=== PATIENT | female | born 1980 | race Caucasian/White ===

== ENCOUNTER 2024-07-05 12:13 | Outpatient (AMB) | payer BC, SELFPAY ==
--- NOTE | 2024-07-05 12:15 | MHC.PC.OV ---
Vital Signs 07/05/24 12:25 Height 5 ft 3 in Weight 140 lb 2 oz BMI 24.8 BP 101/68 Blood Pressure Location Lt brachial Position Sitting Respiration 12 Pulse 96 Pulse Source Pulse Oximeter Temp 97.6 F Temp Source Oral Pulse Oximetry (%) 99 Oxygen Delivery Method Room Air Intake Visit Reasons: [place] // Requesting physical Intake Note: New patient to establish care. Pattern Painter Required: No Allergies clarithromycin [From Biaxin] Allergy (Severe, Verified 07/05/24 12:31) Swelling morphine Allergy (Severe, Verified 07/05/24 12:31) Swelling Penicillins Allergy (Severe, Verified 07/05/24 12:31) Swelling sulfamethoxazole [From Bactrim] Allergy (Severe, Verified 07/05/24 12:31) Swelling trimethoprim [From Bactrim] Allergy (Severe, Verified 07/05/24 12:31) Swelling Medication List - Last Reconciled 07/05/24 by Ai Bailey, CUTTER APPRENTICE HAND- cyclobenzaprine 10 mg PO BEDTIME estradiol 1 mg PO DAILY estradiol (Estring) 1 vag ring vaginal [id number] sertraline (Zoloft) 50 mg PO DAILY Tobacco use date assessed: 07/05/24 Dental Screening Dental Screen Date: 07/05/24 Did you have a dental visit in the last 12 months?: Yes Did you have a dental problem in the last 6 months where you did not have access to dental care?: No Was dental information given to patient?: Patient has dentist HPI HPI Comments History of Present Illness Details 44 y/o F with L ovarian cyst, Vit D def, EUN, family hx of breast ca (mom age 21) s/p GEOVANNI with 1 ovary d/t endometriosis, s/p lumpectomy x 2 , Family hx: HLD, family hx of breast ca, Dad of prostate and throat ca Social: , 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 [place] History of Present Illness Previous PCP: [facility] in [place]. No medical records other than labs and MRI avail to me today. - The patient is a 44-year-old female presenting to establish care and address several ongoing health concerns. - The patient began taking Zoloft for anxiety three months ago due to life stressors. Reports stable improvement. - Approached a weight loss clinic due to obesity, successfully losing 52 pounds using Zepbound. Continued cholesterol monitoring due to family history. - Hyperlipidemia monitoring with recent tests indicating total cholesterol at 222 mg/dL, LDL at 131 mg/dL, and HDL at 80 mg/dL. 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 - Reports vitamin D deficiency, begun supplementation with 2000 international units daily. - Exhibits low alk phos likely associated with weight loss medication, impacting mineral absorption. - Suspected restless leg syndrome following increased physical activity. No previous diagnosis. - Underwent hysterectomy in July 2022 for severe endometriosis. Retained one on L ovary; went to ED for low back pain, found to have a cyst on the L ovary, she is going for US of this tomorrow, managed by AUTO MECHANIC APPRENTICE. - Has EpiPen for food allergies Physical Exam General: Well developed, well nourished, in no acute distress. Appears stated age. Head: Normocephalic, atraumatic. Eyes: Pupils are equal, round and reactive to light and accommodation. Conjunctivae are clear. Lungs: Clear to auscultation bilaterally. No rales, rhonchi or wheeze noted. Good air flow in all calvin. Heart: Regular rate and rhythm. No murmurs, click, rubs or gallops are noted. Musculoskeletal: Joints are nontender, without swelling, redness, or effusions. Pulses: Peripheral pulses are equal and palpable bilaterally. Extremities: No clubbing, cyanosis nor edema is noted. Psych: Mood and affect appropriate. Results - Labs: - Cholesterol (total): 222 mg/dL (June 29) - LDL: 131 mg/dL - HDL: 80 mg/dL - Vitamin D: confirmed deficiency - B12: elevated due to recent injection - Alkaline phosphatase: low - Zinc and thyroid levels need evaluation - Imaging/Tests: Pending ultrasound for pelvic evaluation pending. Discussion Notes I discussed with the patient the beneficial impact of her current lifestyle changes, including weight loss and physical activity, on her cholesterol levels and cardiovascular health risk, affirming her reduced cardiovascular risk due to elevated HDL levels. We explored her current supplement regimen for vitamin D deficiency and potential linkage of her prescribed weight-loss management medication with her low alkaline phosphatase levels. I emphasized prioritizing zinc level assessment for further clarity. Regarding anxiety, I affirmed the positive findings with Zoloft and considered the need for its continuation alongside her general mental health management without immediate cessation. Our dialogue included an examination of her family?s cancer history, the importance of mammogram follow-ups, and continued vigilant surveillance for hereditary conditions. Follow-up plans involve regular cholesterol re-checks and associated balancing measures within her broader health routine. Resource channels for communications were solidified through our patient portal activation dialogue, enhancing informational access. Consensual plan adjustments and future test completion were conveyed, aligning with our comprehensive care management strategy. Assessment and Plan 1. Anxiety disorder Continuation of sertraline due to improvement observed. Advised continued exercise and monitoring stress levels for potential dosage adjustments. 2. Obesity Highlighted progress with weight loss. Recommended sustaining physical activity and dietary modifications, with follow-up at the weight management clinic. 3. Hyperlipidemia Evaluated lipid profile, indicating low cardiovascular risk. Advised periodic monitoring with lifestyle optimization through exercise and diet. 4. Vitamin D deficiency Continued with daily 2000 IU vitamin D supplementation, with future labs planned for assessment. 5. Low alk phos Ordered zinc level for assessing association with weight loss medication. Recommended potential multivitamin inclusion. 6. Restless leg syndrome (suspected) Suspected restless leg syndrome will be evaluated via ferritin levels and monitored against activity. 7. Hysterectomy and endometriosis Further monitoring via pelvic ultrasound for unresolved pain; reinforced gynecological follow-ups. 8. Allergies Maintained existing management, including having an EpiPen accessible as required. Patient Instructions - Keep taking Zoloft every day to help with anxiety. - Continue staying active and keep up with exercise. - Follow a heart-healthy diet and get regular cholesterol checks. - Take vitamin D supplements daily. - Watch for symptoms of restless legs and increase fluids. - Scheduled pelvic ultrasound for pain, ensure follow-up with LANDSCAPE CREW LEADER. - Keep EpiPen ready for allergic emergencies, and be aware of your medication allergies. - Follow the instructions on using the patient portal for communication. RTO September CPE, sooner PRN Consent Patient was informed and verbally consented to the use of an ambient scribe for clinic note documentation during this visit. Total time spent caring for the patient today was 47 minutes. This includes time spent before the visit reviewing the chart, time spent during the visit, and time spent after the visit on documentation, reviewing laboratory results, diagnostic imaging, medications, performing a medically necessary evaluation, counseling on diagnoses, care coordination, ordering appropriate tests, ordering appropriate medications, review of tests performed by other providers, reporting test results with the patient, communication with other healthcare providers. [facility] Medical History (Updated 07/06/24 @ 08:09 by Ai Bailey [facility]) Asthma Surgical History (Updated 07/05/24 @ 13:06 by Samia Cordero MA) H/O breast reconstruction (~2021) H/O knee surgery H/O oral surgery H/O: hysterectomy (~2022) History of lumpectomy of left breast Previous section Family History (Updated 07/05/24 @ 13:09 by Samia Cordero MA) Mother Asthma High cholesterol Breast cancer Maternal Grandmother High cholesterol Paternal Grandmother HTN (hypertension) Diabetes Father Throat cancer Prostate cancer Maternal Grandfather Stomach cancer Thyroid cancer Social History (Updated 07/05/24 @ 12:24 by Smaia Cordero MA) Household Members: Spouse and Children Both parents involved: No Caregiver staying overnight: No Housing: House Are you a primary managed care manager to a significant other at home: Yes Do you presently have visiting nurse or other home services: No 75 years or older and lives alone: No Alcohol intake: current Alcohol intake frequency: a few times a month Patient Tobacco Use Status: Never used Tobacco e-Cigarette/Vaping Use: Never Used Second Hand Smoke Exposure: No service: No Current occupational status: employed 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 1. Little interest or pleasure in doing things: not at all 2. Feeling down, depressed, or hopeless: not at all 3. Trouble falling or staying asleep, or sleeping too much: not at all 4. Feeling tired or having little energy: not at all 5. Poor appetite or overeating: not at all 6. Feeling bad about yourself - or that you are a failure or have let yourself or your family down: not at all 7. Trouble concentrating on things, such as reading the newspaper or watching television: not at all 8. Moving or speaking so slowly that other people could have noticed. Or the opposite - being so fidgety or restless that you have been moving around a lot more than usual: not at all 9. Thoughts that you would be better off or of hurting yourself in some way: not at all Total score: 0 Depression Screening Interpretation: Negative Depression Screening Done: Yes 79537 - PHQ-9 Billing: Yes Source: Developed by Drs. Rico Espinoza, Desirae Krause, Eric Hall and colleagues, with an educational cherelle from [employer]. Thrive Questionnaire Date Thrive assessed: 07/05/24 I am a: Patient What is your living situation today?: I have a steady place to live Within the past 12 months, did the food you bought not last and you didn't have the money to get more?: Never true Within the past 12 months, did you worry whether your food would run out before you got money to buy more?: Never true Do you have trouble paying for medicines?: No Do you have trouble getting transportation to medical appointments?: No Do you have trouble paying your heating and electricity bill?: No Do you have trouble taking care of your child, family member or friend?: No Do you have trouble with day-to-day activities such as bathing, preparing meals, shopping, managing finances, etc.?: No Are you currently unemployed and looking for a job?: No Are you interested in more education?: No Please select the resources that you would like help with: None Currently or been in a relationship where the following occur: No concerns reported THRIVE Score: 0 AUDIT C Alcohol Use Questionnaire (AUDIT-C) 1. How often do you have a drink containing alcohol?: Monthly or less 2. How many drinks containing alcohol do you have on a typical day when you are drinking?: 1 or 2 3. How often do you have six or more drinks on one occasion?: Never Total Score: 1 Score Reviewed/Action Taken: Yes EUN-7 AMB Questionnaire EUN-7 Date EUN - 7 assessed: 07/05/24 Feeling nervous, anxious, or on edge: 1 = Several days Not being able to stop or control worryin = Several days Worrying too much about different things: 0 = Not at all Trouble relaxin = Several days Being so restless that it is hard to sit still: 0 = Not at all Becoming easily annoyed or irritable: 0 = Not at all Feeling afraid as if something awful might happen: 0 = Not at all Total EUN-7 score (0-4 normal; 5-9 mild; 10-14 moderate; 15-21 severe): 3 Source: Developed by Drs. Rico Espinoza, Desirae Krause, Eric Hall and colleagues, with an educational cherelle from [employer]. EUN-7 Assessment Billing EUN-7 Assessment Tool: EUN-7 Assessment 62143 Physical exam (Primary Care) Vital Signs: Last Vital Signs Temp 97.6 F 07/05/24 12:25 Pulse 96 07/05/24 12:25 Resp 12 07/05/24 12:25 BP 101/68 07/05/24 12:25 Pulse Ox 99 07/05/24 12:25 Oxygen Delivery Method Room Air 07/05/24 12:25 BMI result Body Mass Index 24.8 Tobacco/Smoking Status: Tobacco use Status Tobacco use date assessed 07/05/24 07/05/24 12:25 Patient Tobacco Use Status Never used Tobacco 07/05/24 12:25 e-Cigarette/Vaping Use Never Used 07/05/24 12:25 PHQ-9: PHQ-9 Score PHQ-9: Total score 0 07/05/24 15:21 Depression Screening Interpretation: Negative Thrive Assessment: Date of Thrive Assessment Date Thrive assessed 07/05/24 07/05/24 12:17 Currently or been in a relationship where the following occur: No concerns reported Coding Level of Care Code New Pt Level 4 (36230) Complex EM visit Add On G2211 Diagnoses Encounter to establish care Z76.89 Low serum alkaline phosphatase R74.8 Family history of hyperlipidemia Z83.438 EUN (generalized anxiety disorder) F41.1 Family history of breast cancer Z80.3 At high risk for breast cancer Z91.89 Vitamin D deficiency E55.9 Left ovarian cyst N83.202 Gluteal tendinitis of both buttocks M76.01; M76.02 Laterality: bilateral Additional Codes EUN-7 Assessment Billing - EUN-7 Assessment Tool: EUN-7 Assessment 66478 ([id number]) PHQ-9 - 54040 - PHQ-9 Billing: Yes ([id number]) Assessment & Plan Assessment & Plan (1) Encounter to establish care: Code(s): Z76.89 - Persons encountering health services in other specified circumstances (2) Low serum alkaline phosphatase: Code(s): R74.8 - Abnormal levels of other serum enzymes Category: Medical (3) Family history of hyperlipidemia: Code(s): Z83.438 - Family history of other disorder of lipoprotein metabolism and other lipidemia Category: Medical (4) EUN (generalized anxiety disorder): Code(s): F41.1 - Generalized anxiety disorder Category: Medical (5) Family history of breast cancer: Comment: Mom Code(s): Z80.3 - Family history of malignant neoplasm of breast Category: Medical (6) At high risk for breast cancer: Code(s): Z91.89 - Other specified personal risk factors, not elsewhere classified Category: Medical (7) Vitamin D deficiency: Code(s): E55.9 - Vitamin D deficiency, unspecified Category: Medical (8) Left ovarian cyst: Code(s): N83.202 - Unspecified ovarian cyst, left side Category: Medical (9) Gluteal tendonitis: Code(s): M76.00 - Gluteal tendinitis, unspecified hip Category: Medical Qualifiers: Laterality: bilateral Qualified Code(s): M76.01 - Gluteal tendinitis, right hip; M76.02 - Gluteal tendinitis, left hip Plan . Orders: Orders Zinc 07/05/24 R74.8 - Abnormal levels of other serum enzymes TSH reflex Free T4 07/05/24 R74.8 - Abnormal levels of other serum enzymes Complete Blood Count no Diff 07/05/24 R74.8 - Abnormal levels of other serum enzymes Ferritin 07/05/24 R74.8 - Abnormal levels of other serum enzymes IRON PROFILE 07/05/24 R74.8 - Abnormal levels of other serum enzymes Vitamin B12 and Folate 07/05/24 R74.8 - Abnormal levels of other serum enzymes Medications: New tirzepatide (weight loss) (Zepbound) 7.5 mg subcut QWEEK epinephrine for 2 doses 0.3 mg IM Q10M PRN sertraline (Zoloft) 50 mg PO DAILY 90 tabs 0RF cholecalciferol (vitamin D3) 50 mcg PO DAILY sertraline (Zoloft) 50 mg PO DAILY 90 tabs 0RF Patient Instructions: Walk-In Care (Urgent Care): We Make it Easy Walk-in for urgent medical issues such as: ? Seasonal Allergies ? Insect Bites ? Cough ? Diarrhea ? Acute Asthma Attacks ? Back, Knee or Joint Pain ? Ear Infection ? Fever without a Rash ? Headaches ? Nausea ? [place] Eye, Rash or Skin Irritation ? Sore Throat ? Sports Physicals ? Vomiting Most insurances are accepted. Patients do not need to be part of the [facility] to seek care at the walk-in clinic. Locations [facility] [place] [address] ? [phone] [facility] in [place] provides services to ages 18 and over. Open Tuesday-Tuesday: 8 a.m. to 5 p.m. and Tuesday: 9 a.m. to 3 p.m.* *Hours may vary due to staffing availability. To confirm Walk-In Care hours in [place], please call [phone]. [address] [place] [address] ? [phone] [facility] in [place] provides services to ages 12 and over. Open Tuesday-Tuesday: 8 a.m. to 5 p.m. Hours may vary due to staffing availability. To confirm Walk-In Care hours in [place], please call [phone]. LABORATORY SERVICES: [facility] ? Primary Location [address] [place] [address] Tuesday through Tuesday 6:00 AM ? 5:00 PM Tuesday 7:00 AM ? 11:00 AM* [phone] The [facility] is centrally located near the front entrance of the Medical Center for easy outpatient access. Convenient parking is provided for outpatients. *Hours may vary due to staffing availability. To confirm Laboratory hours for any location, please call [phone]. Offsite Location For your convenience, we offer offsite laboratory draw stations at the following locations: [address] [place] [address] ? [facility] [address], [address], [place] Tuesday through Tuesday 7:30 AM ? 1:00 PM* [phone] *Hours may vary due to staffing availability. To confirm Laboratory hours for any location, please call [phone]. [place] ? [facility] [address] [facility] Tuesday through Tuesday 6:00 AM ? 3:30 PM* Tuesday 6:30 AM ? 3 PM* [phone] *Hours may vary due to staffing availability. To confirm Laboratory hours for any location, please call [phone] [place] [address] Tuesday through Tuesday 7:30 AM ? 4:00 PM* [phone] *Hours may vary due to staffing availability. To confirm Laboratory hours for any location, please call [phone] [place] [address] Tuesday through 9:00 AM ? 4:00 PM* *Hours may vary due to staffing availability. To confirm Laboratory hours for any location, please call [phone]. Appointments are not necessary. Walk-ins are welcome. Like all the departments throughout the [facility], our Lab undergoes frequent reviews to ensure the quality and accuracy of test results, and our staff takes special pride in its status as a nationally accredited facility. Patient Portal: ONE PATIENT. ONE RECORD. BETTER CARE. [facility] has a fully integrated, cutting-edge mobile electronic health information system that has revolutionized the way we care for our patients and manage our organization. This system improves communication and coordination enabling us to provide safe, higher-quality care, and an overall positive experience for staff and patients. Our first priority, as always, is to deliver the highest quality care possible. The system is running in the background supporting that priority. This portal is for all [facility] and [facility] services and practices. If you are experiencing any technical difficulties with enrolling or logging into the Patient Portal please complete the [facility] Portal Technical Support Form. [facility] now offers a new secure on-line interactive tool for patients to review their health information ? Patient Portal. This interactive web portal will enable patients and their families to take an active role in their care by providing easy, secure access to their health information via the internet. The Patient Portal provides patients with instant access to their health information, including laboratory results, medications, allergies, demographic information, visit history, and more. In addition to managing their own care, parents and health care proxies with authorized consent will appreciate the ability to access the records of those individuals for whom they provide care. Please note: if you wish to gain access (Proxy) to another patient?s portal, you will be required to come to the Medical Records Department in person at [facility]. Both the patient giving proxy access and the proxy will need to provide photo identification and complete the appropriate authorization. The Patient Portal also allows track their appointments online. The [facility] Patient Portal also saves patients time by allowing them to submit updates to their demographic and contact information prior to their visits. Portal email notifications will also alert patients to any new activity on their portal, such as test results and new appointments. In order to initially enroll in the [facility] Patient Portal, you will need to enter some required information including the following: ? your [facility] Medical Record number ? your personal home email address ? name ? date of Please note: In order to enroll in the [facility] Patient Portal, we need to have your email address on file in your electronic medical record. The email address needs to be specific for one person (yourself) in order for your Portal enrollment to be successful. You can update your email address in person with our Registration staff when you are registering for a hospital visit. Otherwise, you will need to come to the Health Information Management (Medical Records) Department at [facility]. We are open from Tuesday ? Tuesday from 7:30 a.m. ? 4:30 p.m. You will be required to present a photo id. Once you have successfully enrolled in the Patient Portal, you will receive a one-time user id and password for the Portal, sent to your email address. This will allow you to log into the Patient Portal within 99 hrs and reset your own logon id and password, and define personal security questions. Once your permanent login and password have been set, you can log into the [facility] Patient Portal at any time via the blue button above or from the Portal Logon button on any page of the [facility] website. [facility] and [facility] encourage all of our patients to enroll in Patient Portal as it presents a valuable opportunity for patients and their families to actively participate in their care and stay healthy Welcome to [facility]. We look forward to working with you.
[2024-07-05 12:25] VITALS: BP 101/68; PULSE 96; RESP 12; TEMP 36.4; O2SAT 99; BMI 24.8
--- OUTSIDE RECORDS SUMMARY | 2024-07-05 15:06 | XMS_ITS ---
Author Name [facility] Organization Unknown History of Medication Use Medication Directions Dispensed Refills Start Date End Date Stat us busPIRone (BUSPAR) 10 MG tablet TAKE 1 TABLET BY MOUTH 3 TIMES A DAY half active EPINEPHrine 0.3 mg/0.3 mL IJ auto-injection INJECT 0.3 MG INTRAMUSCULARLY ONCE 01/15/2022 active estradiol (ESTRACE) 1 MG tablet Take 1 tablet by mouth daily. active hydrOXYzine HCl (ATARAX) 25 MG tablet TAKE 1/2 TABLET BY MOUTH DAILY NEEDED FOR ANXIETY 11/25/2022 active Multiple Vitamin tablet Take 1 tablet by mouth daily. active Problems Problem Status Onset Date Problem Type Date of Resolution Source Irritable bowel syndrome with diarrhea active EncounterDiagnosisAct [facility] Gastroesophageal reflux disease, unspecified whether esophagitis present active EncounterDiagnosisAct [facility] Lactose intolerance active EncounterDiagnosisAc t [facility] Chronic RLQ pain active EncounterDiagnosisAct CCT Bloating active EncounterDiagnosisAct [facility] Encounters Encounter Type Encounter Reason Primary Diagnosis Location Date Ambulatory Right lower quadrant pain Right lower quadrant pain [facility] 05/27/2023 Ambulatory Consult [facility]2022 Care Team Organization Name Specialty Phone Email Start Date End Da te [facility] 04/10/2023 [facility] RHEA CHOU Primary Care 12/10/2022 12/10/2022 [facility] YVETTE CHOU Primary Care 12/10/2022 06/06/2024
--- OUTSIDE RECORDS SUMMARY | 2024-07-05 15:06 | XMS_ITS | Data Portability ---
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 Plan of Treatment Reminders Order Date Submit Date Provider Last Modified By Organization Details Last Modified Time Details Appointments ANNUAL EXAM 2024 08:00A Darion Spangler MD Not available Not available Not available Lab cytology report, thin prep, smear or scraping, cervical or vaginal 2023 024 NORBERT [facility] (Centralized Electronic Ordering - All Locations), Patient Can Go To The Location Of Their Choice, [address] 10/27/2023 18:10:12 hemoglobi n, gastroint estinal, stool 2023 024 [email or web address] 1 In-Office Order, Internal Use Only DO Not Attach Compendium DO Not Attach Compendium, Do Not Delete/merge, [id number] 10/24/2023 12:01:32 pap test, thinprep, cervical 2022 023 [email or web address] [facility] (Centralized Electronic Ordering - All Locations), Patient Can Go To The Location Of Their Choice, [address] 11/04/2022 07:37:46 fecal occult blood, stool 2022 023 [email or web address] 1 In-Office Order, Internal Use Only DO Not Attach Compendium DO Not Attach Compendium, Do Not Delete/merge, [id number] 10/21/2022 09:24:20 Referral None recorded. Procedures None recorded. Surgeries None recorded. Imaging US, pelvis, transabdo sarah + transvagi nal - 3.5 cm left ovarian cyst on recent MRI, past history of unilatera l salpingo oophorect alfonso with hysterect alfonso for endometri osis, please assess left ovary 2024 025 [facility], [address], [address], [place], [address], 07/03/2024 15:04:30 MAMMO, screening , digital, bilateral - Breast Aspiratio n and/or Biopsy if needed 2023 024 [facility] Orders, [address], [address], [place], [address], 06/05/2024 16:39:14 MAMMO, screening , digital, bilateral - Breast Aspiratio n and/or Biopsy if needed 2022 023 [facility] Orders, [address], [address], [place], [address], 06/02/2023 15:18:42 Medication Orders Estring 2 mg (7.5 mcg/24 hour) vaginal ring 2023 024 [facility], [facility], [place], [address], 10/24/2023 12:01:32 estradiol 1 mg tablet 2023 024 [facility][id number], [address] [place] [address], [address], 10/24/2023 12:01:33 Estring 2 mg (7.5 mcg/24 hour) vaginal ring 2023 024 [email or web address] 1 [facility], [facility], [place], [address], 06/07/2023 11:59:09 estradiol 2 mg tablet 2022 023 [email or web address] [id number], [address] [place], [address], 10/24/2023 10:43:19 Patient TargetsNo targets recorded. Patient Instructions Encounter Date Encounter Id Patient Instructions Last Modified By Organization Details Last Modified Time 10/21/2022 [id number] learning about healthy weight Not available 10/21/2022 09:24:20 She is here for annual, is s/p hysterectomy with USO, for endometriosis, had vasomotor symptoms afterward, her estradiol was in the 300 range but she was started on estradiol to see if this might help and it did, she notes her vasomotor symptoms are entirely resolved. She moved up to 2 mg a day, and had requested to go to 3 mg a day but was advised that 2 mg a day was the highest she should safely go to. She notes lack of libido since the surgery. She has had persistent left breast pain, is seeing a specialist tomorrow morning for that. Note4 from 12/2021: Alvaro. For about a week I have had pain in my left breast. At first I wasn? t sure if I pulled something at the gym, hormones or what. ? In 2020 I ended up having an infection.:. The doctor at the time called it mastitis infection in my breast tissue at that time I did tea tree oil mixed with coconut and antibiotics (yes even though I wasn? t breast feeding). ? Between the discomfort, the MRI being not covered by insurance this week and the past breast issues I am all in my head. Ashli have googling left breast pain by nipple. ? I was not sure if I should make an appointment in the upcoming week to be seen or if there are things I can try at home to make the discomfort go away. Note from 10/2021: She is here as a new patient for a problem visit. She was on depo lupron for a year, to manage endometriosis pain. Dhe had a hysterectomy, robotic with unilateral oophorectomy with Dr. Santiago, and after this she has noted hair loss, vasomotor symptoms, bloating and headaches. There was no endometriosis is the specimen, by the note of her former cottage parent history. She would like a second opinion about all this. She notes that she did not have symptoms after surgery, until about 8 weeks post op, and then she noted the onset of hot flashes, and night sweats, I'm like a furnace at night! around 3 am. Her last depo provera injection was 03/30/21. We discussed that if she is in menopause then we could manage her as a menopausal patient. If her hormone levels are not in menopause range, then there may be something else going on. Check FSH and estradiol. She has a past history of vitamin d deficiency, check vitamin d levels also. all questions answerd. The issues of menopause were discussed at length. We discussed how best to manage lack of libido, nad advised this is very common and, normal . She appears to be doing well. Continue 2 mg estradiol daily. Monthly self breast exam was taught, and stressed, and is advised to call if she discovers any new mass in the breast. Not available 10/21/2022 09:25:18 12/02/2022 [id number] This visit is a phone telehealth visit. The patient consented to the visit by phone. The patient was at home at the time of the call and the provider and patient were the only people on the line. I was at [address] [facility], [address], [place], [place], at the time of the call. She went to the ED with abdominal pain. She hasn't had any pain for a few days. She notes that he ED told her that she had undiagnosed abdominal pain and that she may have recurrent endometriosis. She had a CT scan with contrast at the ED. No abnormality was found. She had been having RLQ pain for years, she was put on lupron and then depo provera, for presumptive endometriosis, and this helped. Then she had hysterectomy. with USO. After surgery the pain was gone but she had profound, life-altering vasomotor symptoms. She is taking estradiol 2 mg a day, and notes this has improved her vasomotor symptoms. She is very hesitant to stop the estradiol, I finally feel like myself again after so long. At the time of her hysterectomy surgery there was no endometriosis found. She messaged Dr. Santiago a few days ago and was advised that she had no endometriosis at the time of surgery, and she was offered surgery now to remove the one remaining ovary. Patient message from 11/29/22: Alvaro. This past Tuesday I ended up going into ER with sharp pains (that started on night) in my lower right abdomen to my right side. The sharp pain comes and goes but discomfort is consistent. ? After blood/urine labs and CAT scan they deemed it as undiagnosed abdominal pain and said that it could be an adhesion from surgery, potential endodemtriosis in that spot or a chance that my left ovary could be sending pain to the right right side even though there is not left ovary. ? I have had this pain before prior to my hysterectomy and did Infact end up innER over concerns of kidney or appendix concerns only to have a UTI or ovary issues. ? At that point they told me to take ibuprofen, rest and follow up with my PCP, my SENIOR DIRECTOR INSIGHT and my surgeon from my hysterectomy. ? I am hoping that you can help me figure out this pain that I am having bc it? s very concerning to me. I want to make sure I? m doing everything to get to the bottom of this pain. She had been put on depo lupron years ago by her prior cottage parent because she had presumptive endometriosis, and the lupron did help the pain. She was then on depo provera, and did have relief from the right sided pain as well. We discussed that if she had pelvic endometriosis it may not have arnulfo visible at her hysterectomy because she had been on depo provera. If she has surgery now, the endometriosis could be visible, if present. She had the hysterectomy and removal of one ovary, but had profound vasomotor symptoms. She started estradiol in 11/09, and the right sided discomfort returned 2 weeks ago, mild, but Tuesday it got so bad just to sit up or walk. She is advised that the oral estradiol may have supported endometriosis growth, and she is advised to stop it She really does not want to stop it. She is then advised to contact Dr. Santiago nad see if she can have surgery and if endometriosis is found then it might be able to be excised, and then she should theoretically be able to restart the estradiol. All questions answered. The patient was agreeable to this plan. She is aware of the limitations caused by the covid restrictions, and this phone call. Face to face discussion 33 minutes [email or web address] Not available 12/02/2022 11:32:22 06/07/2023 [id number] atrophic vaginitis: care instructions Not available 06/07/2023 10:57:59 This visit is a phone telehealth visit. The patient consented to the visit by phone. The patient was at work at the time of the call and the provider and patient were the only people on the line. I was at [address] [place] [address], [address], [place], [place], at the time of the call. Since her hysterectomy she has developed vaginal dryness and dyspareunia, and increased urinary frequency. She was begun on oral estradiol however that has not improved her symptoms. She would like ot know if vaginal estradiol would be useful? Note from 12/11: She went to the ED with abdominal pain. She hasn't had any pain for a few days. She notes that he ED told her that she had undiagnosed abdominal pain and that she may have recurrent endometriosis. She had a CT scan with contrast at the ED. No abnormality was found. She had been having RLQ pain for years, she was put on lupron and then depo provera, for presumptive endometriosis, and this helped. Then she had hysterectomy. with USO. After surgery the pain was gone but she had profound, life-altering vasomotor symptoms. She is taking estradiol 2 mg a day, and notes this has improved her vasomotor symptoms. She is very hesitant to stop the estradiol, I finally feel like myself again after so long. At the time of her hysterectomy surgery there was no endometriosis found. She messaged Dr. Santiago a few days ago and was advised that she had no endometriosis at the time of surgery, and she was offered surgery now to remove the one remaining ovary. We discussed having her begin to take vaginal hormone replacement therapy. We discussed estradiol vaginal cream, twice a week tablets, or the Estring. She has decided on the Estring. We discussed the need to take a progestin if a uterus is present, and the rationale behind that. We discussed the stated risks of one in 10,000 of development o fa blood clot/DVT/PE that could be life threatening. We discussed the Women's Health Initiative study and the findings. We discussed the PEPPI study as well. She is aware that there are conflicting reports in the medical literature concerning the risks and benefits of HRT. We discussed that women are advised by ACOG to take HRT in the lowest dose necessary, and for the shortest time necessary, to control their symptoms. After a long discussion of the potential risks and benefits of HRT she elects to begin HRT. All questions answered. Rx for Estring is called in to the pharmacy. The patient was agreeable to this plan. She is aware of the limitations caused by the covid restrictions, and this phone call. Face to face discussion for 21 minutes. Not available 06/07/2023 11:12:35 10/24/2023 [id number] learning about healthy weight Not available 10/24/2023 12:01:30 She is here for annual, doing well on her estradiol 1m oral, and vaginal ring therapy. Note from 2022: She is here for annual, is s/p hysterectomy with USO, for endometriosis, had vasomotor symptoms afterward, her estradiol was in the 300 range but she was started on estradiol to see if this might help and it did, she notes her vasomotor symptoms are entirely resolved. She moved up to 2 mg a day, and had requested to go to 3 mg a day but was advised that 2 mg a day was the highest she should safely go to. She notes lack of libido since the surgery. She has had persistent left breast pain, is seeing a specialist tomorrow morning for that. She appears to be doing well. . Monthly self breast exam was taught, and stressed, and is advised to call if she discovers any new mass in the breast. Not available 10/24/2023 11:08:48 07/03/2024 [id number] She is here for follow up after a 06/17/24 pelvic MRI that her orthopedic ordered to assess her hip pain showed a 3.5 cm left ovarian cyst. The right ovary has been surgically removed. in 08/09 she had laparoscopic surgery with Uterus, cervix, bilat fallopian tubes and right ovary removed. It was not a pessary seen on MRI it was her Estring. She was found to have some omental adhesions from endometriosis at surgery. Note from 2022: She is here for annual, is s/p hysterectomy with USO, for endometriosis, had vasomotor symptoms afterward, her estradiol was in the 300 range but she was started on estradiol to see if this might help and it did, she notes her vasomotor symptoms are entirely resolved. She moved up to 2 mg a day, and had requested to go to 3 mg a day but was advised that 2 mg a day was the highest she should safely go to. She notes lack of libido since the surgery. ___ We discussed that the left ovarian cyt may resolve spontaneously. she believes she had an MRI 1-2 years ago that showed a 2 cm cyst in the same location. Will check pelvic sonogram now, and if the cyst has no suspicious hallmarks then will repeat the sono in 6 weeks to assure resolution. We discussed that if she has endometriosis and this is an endometrioma or a persistent/ enlarging cyst then she may need surgery, she understands. All questions answered. Face to face discussion, chart review and coordination of care: 25 minutes Not available 07/03/2024 13:55:16 Reason for Referral None Reported. Results Created Date Observation Date Name Description Value Unit Range Abnormal Flag Note LastModifiedBy Organization Detail LastModifiedTime 10/22/19 23 10/21/2022 [facility] results Patie nt Name: JANET SRIVASTAVA nt : 1979 (Age: 42) Lab Acces aniceto #: [id number] Colle ction Date: 023 Acces aniceto Date: 023 Sign Out Date: 2022 Tissu e Sourc e: 1: THINP REP SENIOR DIRECTOR INSIGHT PAP TEST, CERVI ROXANNE/V AGINA L: Final Diagn osis: NEGAT HANNA FOR INTRA EPITH ELIAL LESIO N OR MALBETH RAMIREZCY . Satis facto ry for evalu ation . Endoc ervic al/tr ansfo rmati on zone ABSEN T. Clini roxanne Histo ry: Date of Last Menst rual Perio d: not avail able Menst rual Histo ry: Hyste recto my: cervi x remov ed Contr acept hanna Histo ry: not avail able Ancil moises Testi ng: HPV (ASCU S) Case image d by the ThinP rep Imagi ng Syste m with declan prador kyle g or macario w. Clini roxanne Histo ry (othe r): Z01.4 19 Phone #: [phone], On-Ca ll Patho logis t: [id number] Not Available [facility] (Centralized Electronic Ordering - All Locations) Patient Can Go To The Location Of Their Choice, [address] 10/29/2022 10:55:32 10/22/1910/21/2022 fecal occul t blood , stool Occult Blood negati ve Not Available In-Office Order Internal Use Only DO Not Attach Compendium DO Not Attach Compendium, Do Not Delete/merge, [id number] 10/21/2022 09:03:31 10/24/19 24 10/27/2023 IGP, RFX APTIM A HPV ASCU diagnosis: Commen t NEGAT HANNA FOR INTRA EPITH ELIAL LESIO N OR MALIG LIZBETH . Not Available [facility] ([facility]) [address] [place], [address], 10/27/2023 18:10:11 10/24/19 24 10/27/2023 IGP, RFX APTIM A HPV ASCU specimen adequacy: Andrés briceño Satis facto ry for evalu ation . Not Available [facility] ([facility]) [address] [place], [address], 10/27/2023 18:10:11 10/24/19 24 10/27/2023 IGP, RFX APTIM A HPV ASCU clinician provided ICD10: Andrés briceño Z01.4 19 Not Available [facility] ([facility]) [address] [place], [address], 10/27/2023 18:10:11 10/24/19 24 10/27/2023 IGP, RFX APTIM A HPV ASCU performed by: Abdulaziz Munoz (ASCP ) Not Available [facility] ([facility]) [address] [place], [address], 10/27/2023 18:10:11 10/24/19 24 10/27/2023 IGP, RFX APTIM A HPV ASCU . . Not Available [facility] ([facility]) [address] [place], [address], 10/27/2023 18:10:11 10/24/19 24 10/27/2023 IGP, RFX APTIM A HPV ASCU note: Andrés briceño The Pap smear is a scree tyrone test desig concepcion to aid in the detec tion of katty ligna nt and malig nant condi tions of the uteri ne cervi x. It is not a diagn ostic proce dure and shoul d not be used as the sole means of detec ting cervi roxanne cance r. Both false -posi tive and false -nega tive repor ts do occur . Not Available [facility] ([facility]) [address] [facility], [place], [address], 10/27/2023 18:10:11 10/24/19 24 10/27/2023 IGP, RFX APTIM A HPV ASCU test methodology: Commen t This liqui d based ThinP rep(R ) pap test was arelis javier with the use of an image guide todd leary. Not Available [facility] ([facility]) [address] [facility], [place], [address], 10/27/2023 18:10:11 10/24/19 24 10/27/2023 IGP, RFX APTIM A HPV ASCU . Commen t The HPV DNA refle x crite shahnaz were not met with this speci men resul t there fore, no HPV testi ng was perfo rmed. Not Available [facility] ([facility]) [address] [facility], [place], [address], 10/27/2023 18:10:11 10/24/19 24 10/24/2023 hemog lobin , gastr ointe saumya l, stool Occult Blood negati ve Not Available In-Office Order Internal Use Only DO Not Attach Compendium DO Not Attach Compendium, Do Not Delete/merge, [id number] 10/24/2023 10:48:21 06/02/19 24 06/02/2023 MAMMO , scree tyrone, digit al, bilat eral No observ ation record ed. [facility] [place] [address] [place], [address], 06/02/2023 15:18:52 06/06/19 25 06/05/2024 MAMMO , scree tyrone, digit al, bilat eral No observ ation record ed. [email or web address] [facility] [place] [address] [place], [address], 07/03/2024 13:44:30 06/23/19 25 06/17/2024 MRI, pelvi s, w/ contr ast No observ ation record ed. [facility] ([facility] [address], [place], [address], 06/22/2024 08:50:27 07/05/19 25 MAMMO , diagn ostic , digit al, unila teral No observ ation record ed. BARCODE [facility] [address], [place], [address], 07/04/2024 07:22:23 Result Notes None recorded. Problems Name Problem SNOMED Code Status Onset Date Resolution Date Notes Provider Name and Address Organization Details Recorded Time Endometrios is (clinical) 418371275 Active 2021 Apple villalobos [place] [facility], 2 15:09:24 Anxiety 95102282 Active 2021 Apple villalobos [place] [facility], 2 15:09:35 History of endometrios is 1598521907849 4107 Active 2021 Elen Spangler MD [address] [facility],[address], [place], [address], [place] [facility], 2 15:47:20 Family history of malignant neoplasm of breast in first degree relative 834261086 Active 2021 Elen Spangler MD [address] [facility] [address] [address] [place], [address], [place] [facility], 2 11:54:08 Family history of malignant neoplasm of male breast 085068648 Active 2021 Elen Spangler MD [address] [facility],[address], [place], [address], [place] [facility], 2 11:55:02 At high risk for malignant neoplasm of breast 7961229825162 02 Active 2021 [facility] 23.8% Elen Spangler MD [address], [place], [address], [place] [facility], 2 13:56:26 Atrophic vaginitis 88226595 Active 2023 Elen Spangler MD [address], [place], [address], [place] [facility], 4 10:54:35 Dyspareunia 87696215 Active 2023 Elen Spangler MD [address], [place], [address], [place] [facility], 4 11:07:40 Problem Notes None recorded. Procedures Surgical History Date Name Laterality Status Provider Name and Address Organization Details Recorded Time 06/02/19 25 Most Recent Mammogram completed Brianna Meza in [facility], 07/03/2024 13:28:13 07/21/19 22 Hysterectomy completed Apple Meza in [facility], 10/20/2021 14:52:17 repair of incisional hernia completed Brianna Meza in [facility], 10/16/2021 11:14:40 section completed Brianna Meza in [facility], 10/16/2021 11:14:53 lumpectomy of breast completed Brianna Meza in [facility], 10/16/2021 11:15:11 leg repair completed Apple Meza in [facility], 10/20/2021 15:14:08 Nipple/areola reconstruction completed Apple Meza in [facility], 10/20/2021 15:12:50 Dilation and Curettage completed Brianna Meza in [facility], 10/16/2021 11:16:51 Tonsillectomy completed Brianna Meza in [facility], 10/16/2021 11:17:35 orthognathic operation of mandible completed Apple Meza in [facility], 10/20/2021 15:13:21 procedure on back completed Kusum Meza in [facility], 10/20/2021 15:14:52 Imaging Results Imaging Date Name Status LastModified by Carolynn guzman Details LastModified Time 06/02/2023 MAMMO, screening, digital, bilateral completed [facility] [place] [address], [place], [address], 06/02/2023 15:18:52 06/05/2024 MAMMO, screening, digital, bilateral completed [email or web address] [facility] [address], [place], [address], 07/03/2024 13:44:30 06/17/2024 MRI, pelvis, w/ contrast completed [facility] ([facility]) [address], [place], [address], 06/22/2024 08:50:27 07/04/2024 MAMMO, diagnostic, digital, unilateral completed BARCODE [facility] Orders [address], [place], [address], 07/04/2024 07:22:23 Procedure Notes None recorded. Medical Equipment None Reported. Allergies Allergen ID Allergen Name Allergen Category Reaction Reaction Severity Criticality Documentation Date Start Date Code Code System Note Provider Name and Address Organization Details Recorded Time Aleve medicatio n other Not available Not available 10/16/2021 47649 1 RxNorm tongu e swell ing Brianna [place] in [facility], 2 11:24:54 97763 Bactrim medicatio n hives Not available Not available 10/16/2021 56015 9 RxNorm Brianna Meczywor [place] in [facility], 2 11:25:08 05306 Biaxin medicatio n hives Not available Not available 10/16/2021 32971 9 RxNorm Brianna Meczywor [place] in [facility], 2 11:25:25 30783 adhesive tape environme nt,medica tion Not available Not available Not available 10/16/2021 12155 UNK paper skin peels Brianna ParsonsSOL morales in [facility], 2 11:25:46 96274 Zoloft medicatio n facial swelling Not available Not available 10/16/2021 89750 RxNorm Brianna Meczywor [place] in [facility], 2 11:26:28 58195 morphine medicatio n dyspnea hives Not available Not available Not available 10/16/2021 7052 RxNorm Brianna Meczywor [place] in [facility], 2 11:26:51 41954 Product containin g penicilli n (product) medicatio n hives Not available Not available 10/16/2021 91053 8001 SNOMED Briannachristian Alaswor [place] in [facility], 2 11:27:17 31578 Substance with sulfonami de structure and antibacte rial mechanism of action (substanc e) medicatio n hives severe high 10/20/2021 60903 8003 SNOMED Apple Rao [place] [facility] in [facility], 2 15:05:15 Medications Name Sig Start Date Stop Date Status Note LastModified by Organization Details LastModified Time cyclobenzap rine 10 mg tablet TAKE 1 TABLET BY MOUTH EVERY DAY FOR 30 DAYS 07/03 completed Not Available Not Available Not Available acetaminoph en 325 mg tablet TAKE 3 TABLETS BY MOUTH EVERY 6 HOURS 10/20 completed Not Available Not Available Not Available Estring 2 mg (7.5 mcg/24 hour) vaginal ring INSERT 1 RING VAGINALLY EVERY 3 MONTHS active Not Available Not Available No t Available doxycycline hyclate 100 mg capsule TAKE 1 CAPSULE BY MOUTH TWICE A DAY FOR 10 DAYS 10/20 completed Not Available Not Available Not Available clarithromy supriya 250 mg tablet DO NOT TAKE. BRING TO ALLERGY OFFICE VISIT 07/03 completed Not Available Not Available Not Available cefpodoxime 200 mg tablet TAKE 1 TABLET BY MOUTH EVERY 12 HOURS FOR 7 DAYS 06/17 completed Not Available Not Available Not Available azithromyci n 250 mg tablet TAKE 2 TABLETS BY MOUTH TODAY, THEN TAKE 1 TABLET DAILY FOR 4 DAYS DIRECTED 10/23 completed Not Available Not Available Not Available fluconazole 150 mg tablet TAKE 1 TABLET BY MOUTH EVERY WEEK FOR 13 DAYS 06/17 completed Not Available Not Available Not Available meloxicam 15 mg tablet TAKE 1 TABLET BY MOUTH EVERY DAY FOR 30 DAYS 07/03 completed Not Available Not Available Not Available ondansetron HCl 4 mg tablet TAKE 1 TABLET BY MOUTH EVERY 8 HOURS NEEDED FOR NAUSEA AND VOMITING FOR 5 DAYS 10/21 completed Not Available Not Available Not Available famotidine 40 mg tablet TAKE 1 TABLET BY MOUTH EVERY DAY AT NIGHT 10/23 completed Not Available Not Available Not Available moxifloxaci n 400 mg tablet TAKE 1 TABLET BY MOUTH EVERY DAY FOR 7 DAYS 06/17 completed Not Available Not Available Not Available alprazolam 0.5 mg tablet TAKE 1 TABLET BY MOUTH EVERY DAY NEEDED FOR ANXIETY active Not Available Not Available No t Available estradiol 1 mg tablet TAKE 1 TABLET BY MOUTH EVERY DAY active Not Available Not Available No t Available amoxicillin 250 mg/5 mL oral suspension DO NOT MIX. WE WILL MIX AT ALLERGY APPOINTMN ET. TAKE DIRECTED 07/03 completed Not Available Not Available Not Available cephalexin 500 mg capsule TAKE 1 CAPSULE 3 TIMES A DAY BY ORAL ROUTE FOR 5 DAYS FOR UTI. 07/03 completed Not Available Not Available Not Available buspirone 10 mg tablet TAKE 1 TABLET BY MOUTH 3 TIMES A DAY half 06/06 completed Not Available Not Available Not Available estradiol 2 mg tablet TAKE 1 TABLET BY MOUTH EVERY DAY 10/23 completed Not Available Not Available Not Available hydroxyzine HCl 25 mg tablet TAKE 1/2 TABLET BY MOUTH EVERY DAY NEEDED FOR ANXIETY 06/06 completed Not Available Not Available Not Available epinephrine 0.3 mg/0.3 mL injection, auto-inject or INJECT 1 DEVICE (0.3 MG) NEEDED FOR ANAPHYLAX IS THEN CALL 911. active Not Available Not Available No t Available ibuprofen 600 mg tablet TAKE 1 TABLET BY MOUTH 3 TIMES A DAY NEEDED 10/23 completed Not Available Not Available Not Available hydroxyzine HCl 10 mg tablet TAKE 1 TABLET BY MOUTH 3 TIMES A DAY FOR 5 DAYS NEEDED FOR ANXIETY 12/04 completed Not Available Not Available Not Available sertraline 50 mg tablet TAKE 1 TABLET BY MOUTH EVERY DAY active Not Available Not Available No t Available doxycycline hyclate 100 mg tablet 06/17 completed Not Available Not Available Not Available dicyclomine 10 mg capsule TAKE 1 CAPSULE BY MOUTH FOUR TIMES A DAY NEEDED FOR CRAMPS 10/23 completed Not Available Not Available Not Available simethicone 80 mg chewable tablet CHEW 1 TABLET 4 TIMES A DAY NEEDED FOR GAS 10/20 completed Not Available Not Available Not Available oxycodone 5 mg tablet TAKE 1 TABLET BY MOUTH EVERY 6 HOURS NEEDED FOR PAIN 10/20 completed Not Available Not Available Not Available neomycin-po lymyxin-hyd rocort 3.5 mg-10,000 unit/mL-1 % ear drops,susp ADMINISTE R 3 DROPS INTO EARS 3 TIMES A DAY FOR 7-10 DAYS. active Not Available Not Available No t Available azithromyci n 500 mg tablet TAKE 1 TABLET BY MOUTH EVERY DAY FOR 3 DAYS 07/03 completed Not Available Not Available Not Available Lupron Depot 11.25 mg (3 month) intramuscul ar syringe kit 10/20 completed Not Available Not Available Not Available nitrofurant oin monohydrate /macrocryst als 100 mg capsule TAKE 1 CAPSULE BY MOUTH EVERY 12 HOURS FOR 5 DAYS 10/20 completed Not Available Not Available Not Available Zyrtec active Not Available Not Availa ble Not Available L norgest/E estradiol-E estrad 0.15 mg-30 mcg (84)/10 mcg(7) tabs,3mos TAKE 1 TABLET BY MOUTH EVERY DAY 10/20 completed Not Available Not Available Not Available Gavilax 17 gram/dose oral powder DISSOLVE 17 GRAMS IN WATER AND DRINK ONCE DAILY X 7 DAYS 10/20 completed Not Available Not Available Not Available Xifaxan 550 mg tablet TAKE 1 TABLET BY MOUTH 3 TIMES A DAY. 10/23 completed Not Available Not Available Not Available Multi For Her active Not Available Not Available Not Available Wegovy 0.25 mg/0.5 mL subcutaneou s pen injector 06/06 completed Not Available Not Available Not Available Wegovy 0.5 mg/0.5 mL subcutaneou s pen injector 06/06 completed Not Available Not Available Not Available Zepbound 10 mg/0.5 mL subcutaneou s pen injector active Not Available Not Available Not Available Zepbound 5 mg/0.5 mL subcutaneou s pen injector 10/23 completed Not Available Not Available Not Available Zepbound 2.5 mg/0.5 mL subcutaneou s pen injector 10/23 completed Not Available Not Available Not Available Zepbound 12.5 mg/0.5 mL subcutaneou s pen injector active Not Available Not Available Not Available Zepbound 7.5 mg/0.5 mL subcutaneou s pen injector 10/23 completed Not Available Not Available Not Available Vitals Date Recorded Body height Body mass index (BMI) Body weight Heart rate Systolic blood pressure Diastolic blood pressure Provider Name and Address Organization Details Last Updated DateTime 3 160.02 cm 33.1 kg/m2 93222.3 4 g 88 /min 118 mm[Hg] 47 mm[Hg] Brianna Meza in [facility] [place], 3 09:01:25 Date Recorded Body height Provider Name an d Address Organization Details Last Updated DateTime 12/02/2022 160.02 cm Brianna Miller [place] - [facility] in [facility] [place], 12/02/2022 10:22:43 Date Recorded Body height Provider Name an d Address Organization Details Last Updated DateTime 06/07/2023 160.02 cm yoana summers [place] - [facility] in [facility] [place], 06/07/2023 10:43:38 Date Recorded Body height Body temperature Heart rate Body mass index (BMI) Body weight Systolic blood pressure Diastolic blood pressure Provider Name and Address Organization Details Last Updated DateTime 4 158.75 cm 98.1 [degF] 72 /min 26.5 kg/m2 70117.8 g 124 mm[Hg] 51 mm[Hg] Brianna Miller MA - Associates in [facility], 4 10:44:06 Date Recorded Body height Body mass index (BMI) Body weight Heart rate Systolic blood pressure Diastolic blood pressure Provider Name and Address Organization Details Last Updated DateTime 5 158.75 cm 24.9 kg/m2 07032.4 7 g 85 /min 110 mm[Hg] 51 mm[Hg] Brianna Meza in [facility] [place], 5 13:27:06 Social History Question Answer Notes LastModified by Organizat ion Details LastModified Time Tobacco Smoking Status Never Smoker SOL Vicente in [facility], 10/16/2021 11:20:34 What Is Your Level Of Alcohol Consumption? Occasional Information not available 10/20/2021 How Many Years Have You Consumed Alcohol? 20 Information not available 03/05/2022 What Is Your Level Of Caffeine Consumption? Occasional Does Half Caf Coffee Information not available 10/20/2021 In The 14 Days Before Symptom Onset, Have You Had Close Contact With A Laboratory-confir med COVID-19 While That Case Was Ill? No Information not available 10/20/2021 In The 14 Days Before Symptom Onset, Have You Had Close Contact With A Person Who Is Under Investigation For COVID-19 While That Person Was Ill? No Information not available 10/20/2021 Have You Been To An Area Known To Be High Risk For COVID-19? No Information not available 10/20/2021 Are You Currently Employed? Yes Information not available 10/16/2021 What Is The Highest Grade Or Level Of School You Have Completed Or The Highest Degree You Have Received? [id number] Information not available 10/20/2021 Who Is Your Employer? 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 Information not available 10/16/2021 Are There Any Guns Present In Your Home? No Information not available 10/20/2021 To Which Gender Do You Self-identify? Female Information not available 10/20/2021 What Was The Date Of Your Most Recent Tobacco Screening? 07/03/2024 Information not available 07/03/2024 What Is Your Relationship Status? Information not available 10/20/2021 Are You Sexually Active? Yes Information not available 06/17/2022 Do You Feel Stressed (tense, Restless, Nervous, Or Anxious, Or Unable To Sleep At Night)? [id number] Information not available 10/20/2021 Do You Use Any Illicit Or Recreational Drugs? No Information not available 10/16/2021 Do You Or Have You Ever Used Any Other Forms Of Tobacco Or Nicotine? No Information not available 10/16/2021 How Many Days In The Past Year Have You Consumed 4 Or More Drinks? 4 Information no t available 10/24/2023 Sex: Female Functional Status Question Answer Note LastModified by Organization D etails LastModified Time What is your exercise level? Moderate [email or web address] Information not available 06/07/2023 Mental Status None recorded. Family History Relationship Description Onset Age of this Age Resolved Age Notes LastModified by Organization Details LastModified Time Father Pain in throat cancer [email or web address] Not available 2021 11:21:37 Father Carcinoma of prostate Not available 2021 15:03:23 Mother Family history of neoplasm of breast 32 still alive. ..but not willin g to take the test.. .does not discus s medica l issue. Not available 11/18/2021 11:04:33 Paternal Uncle Malignant tumor of breast 69 69 male breast cancer [email or web address] Not available 10/22/2021 08:49:32 Maternal Aunt Family history of neoplasm of breast 63 67 [email or web address] Not available 2021 08:51:24 Maternal Grandmother Family history of neoplasm of breast 67 68 [email or web address] Not available 2021 08:51:31 Medical History Condition Response Anesthesia complications N High Blood Pressure N Candidate for MyRisk panel N Autoimmune Condition N Lung Disease N Depression N Defects or Inherited Disease N History of Ovarian Cancer N BRCA testing in past N Anxiety Disorder N Arthritis N Infertility N History of Cancer N Endometriosis N Thyroid Problems N Kidney or Bladder Problems N GI Problems N Anemia N History of Breast Cancer N PAUL exposure N Osteopenia N Psychiatric Illness N Diabetes N Headaches or Migraines N Asthma N Hepatitis N Heart Disease N Hypertension N Osteoporosis N Gynecological History Statement/Question Response If Post Menopausal, Age at Menopause 41 Duration of Flow (days) Most Recent Mammogram 06/01/2024 Obstetrics History GPAL:G 2 P 1 0 0 1 Type Value Full Term 1 Living 1 Total 2 Immunizations Vaccine Type Date Status Note Provider Nam e and Address Organization Details Recorded Time COVID-19, mRNA, LNP-S, PF, 100 mcg/0.5mL dose or 50 mcg/0.25mL dose 1 completed SOL Good in [facility], 10/20/2021 15:08:14 COVID-19, mRNA, LNP-S, PF, 100 mcg/0.5mL dose or 50 mcg/0.25mL dose 1 completed Apple villalobos [place] Jenna Meza in [facility], 10/20/2021 15:08:28 COVID-19, mRNA, LNP-S, PF, 100 mcg/0.5mL dose or 50 mcg/0.25mL dose 1 completed Apple villalobos [place] - [facility] in [facility], 10/20/2021 15:08:39 Influenza, split virus, quadrivalent, preservative 1 completed Apple villalobos [place] - [facility] in [facility], 10/20/2021 15:08:50 COVID-19, mRNA, LNP-S, PF, 30 mcg/0.3 mL dose 1 completed Brianna Meczywor null MA - [facility] in [facility], 03/05/2022 13:26:19 Influenza, MDCK, quadrivalent, PF 7 completed Brianna Meczywor null, [place] - [facility] in [facility], 03/05/2022 13:26:19 Influenza, MDCK, quadrivalent, PF 0 completed Brianna Meczywor null [place] - [facility] in [facility], 03/05/2022 13:26:19 COVID-19, mRNA, LNP-S, PF, 30 mcg/0.3 mL dose 1 completed Brianna Meczywor null, [place] - [facility], 03/05/2022 13:26:19 Influenza, split virus, quadrivalent, PF 1 completed Brianna Meczywor null, [place] - [facility] in [facility], 03/05/2022 13:26:19 Influenza, split virus, trivalent, preservative 6 completed Brianna Meczywor null, [place] - [facility] in [facility], 03/05/2022 13:26:19 COVID-19, mRNA, LNP-S, PF, 30 mcg/0.3 mL dose 1 completed Brianna Meczywor null, [place] - [facility] in [facility], 03/05/2022 13:26:19 Influenza, MDCK, quadrivalent, PF 9 completed Brianna Meczywor null, [place] - [facility] in [facility], 03/05/2022 13:26:19 Influenza, MDCK, quadrivalent, PF 8 completed Brianna Meczywor null, [place] - [facility] in [facility], 03/05/2022 13:26:19 influenza, unspecified formulation 2 completed Brianna Meczywor null, [place] - [facility] in [facility], 03/05/2022 13:27:03 Past Encounters Encounter ID Performer Location Encounter Start Date Encounter Closed Date Diagnosis/Indication Diagnosis SNOMED-CT Code Diagnosis ICD10 Code Diagnosis Note [id number] MD ELEN Martinez MD [address] [facility] [place] [address] 10/20/2021 14:47:11 10/21/2021 09:53:55 Menopausal syndrome 796996588 N95.1 Vitamin D deficiency 347 46273 E55.9 History of endometriosis 0343224789 8766154 Z87.42 Anxiety 44427757 F41.9 [id number] MD ELEN Martinez MD [address] [facility],[address] [place] 10/27/2021 08:54:35 10/27/2021 13:25:58 Menopausal syndrome 957596702 N95.1 [id number] MD ELEN Martinez MD [address] [place], [place] [address] [address] 11/18/2021 10:59:51 11/18/2021 12:00:43 Family history of malignant neoplasm of breast in first degree relative 491875978 Z80.3 Family his tory of malignant neoplasm of male breast 504049569 Z80.3 [id number] MD ELEN Martinez MD [address] [place], [place] [address] [address] 12/04/2021 13:33:55 12/04/2021 14:55:59 At high risk for malignant neoplasm of breast 1759107752 46834 Z91.89 [id number] MD ELEN Martinez MD [address] [place], [place] [address] [address] 01/01/2022 09:51:16 01/01/2022 10:53:30 Candidal vulvovaginitis 59429438 B37.31 [id number] MD ELNE Martinez MD [address] [place], [place] [address] [address] 03/05/2022 13:20:04 03/05/2022 14:05:11 Menopausal syndrome 105556869 N95.1 N95.2 Mammography abnormal 168 838927 R92.8 [id number] MD ELEN Martinez MD [address] [place], [place] [address] [address] 06/17/2022 11:06:21 06/17/2022 13:20:41 Fatigue 47450351 R53.83 Anxiety 15759114 F41.9 Menopausal syndrome 1237 81215 N95.1 N95.2 [id number] MD ELEN Martinez MD [address] [place], [place] [address] [address] 10/21/2022 08:57:12 10/21/2022 10:02:57 Specialized medical examination 14838403 Z01.419 Screening for malignant neoplasm of rectum 807010318 Z12.12 Screening mammography 24 007639 Z12.31 Menopausal syndrome 1237 64033 N95.1 N95.2 [id number] MD ELEN Martinez MD [address] [place] [address],[place] [address] 12/02/2022 10:20:23 12/02/2022 11:57:42 Pain in pelvis 77269660 R10.2 Menopausal syndrome 1237 31449 N95.1 N95.2 [id number] MD ELEN Martinez MD [address] [facility], [place] [address] 06/07/2023 10:33:07 06/07/2023 13:45:15 Atrophic vaginitis 12018285 N95.2 Dyspareunia 15672729 N94 .10 [id number] MD ELEN Martinez MD [address] [facility] [place] [address] 10/24/2023 10:38:57 10/24/2023 15:51:48 Menopausal syndrome 070463052 N95.1 N95.2 Atrophic vaginitis 03756 000 N95.2 Specialize d medical examination 34760307 Z01.419 Screening for malignant neoplasm of rectum 490895003 Z12.12 Screening mammography 24 302844 Z12.31 [id number] MD ELEN Martinez MD [address] [place] [address],[facility] [place] [address] 07/03/2024 13:11:22 07/03/2024 15:04:30 Cyst of ovary 14850202 N83.202 [place] malignant neoplasm of breast 4127908923 50226 Z91.89 Anxiety 39885137 F41.9 Health Concerns Section Related Observation LastModified by Organization Detai ls LastModified Time None Recorded Concern Status LastModified by Organization Details LastModified Time None Recorded Advance Directives Directive None Recorded Payers Encounter Date Sequence Insurance Name Policy Number Policy Oliva Covered Member ID Oliva Member ID Guarantor Name 10/21/2022 1 [place] [facility] [id number] Kahlil Pollinday [id number] Yoana Polastry 12/02/2022 1 [place] [facility] [place] [id number] Kahlil Polastry [id number] Yoana Polastry 06/07/2023 1 [place] [facility] [place] [id number] Kahlil Polastry [id number] Yoana Polastry 10/24/2023 1 [place] [facility] [place] [id number] Kahlil Polastry [id number] Yoana Polastry 07/03/2024 1 [place] [facility] [place] [id number] Kahlil Polastry [id number] Yoana Pollinday Notes Date Note Type Note Provider Name and Address Organization Details Recorded Time 10/21/2022 text/html She is here for annual, is s/p hysterectomy with USO, for endometriosis, had vasomotor symptoms afterward,her estradiol was in the 300 range but she was started on estradiol to see if this might help and it did, she notes her vasomotor symptoms are entirely resolved. She moved up to 2 mg a day, and had requested to go to 3 mg a day but was advised that 2 mg a day was the highest she should safely go to. She notes lack of libido since the surgery. She has had persistent left breast pain, is seeing a specialist tomorrow morning for that. Note4 from 12/2021: Alvaro.For about a week I have had pain in my left breast. At first I wasn? t sure if I pulled something at the gym, hormones or what.?In 2020 I ended up having an infection.:. The doctor at the time called it mastitis infection in my breast tissue at that time I did tea tree oil mixed with coconut and antibiotics (yes even though I wasn? t breast feeding).?Betwe en the discomfort, the MRI being not covered by insurance this week and the past breast issues I am all in my head. Ashli have googling left breast pain by nipple.?I was not sure if I should make an appointment in the upcoming week to be seen or if there are things I can try at home to make the discomfort go away. Note from 10/2021: She is here as a new patient for a problem visit. She was on depo lupron for a year, to manage endometriosis pain.Dhe had a hysterectomy, robotic with unilateral oophorectomy with Dr. Santiago, and after this she has noted hair loss, vasomotor symptoms, bloating and headaches.There was no endometriosis is the specimen, by the note of her former cottage parent history.She would like a second opinion about all this.She notes that she did not have symptoms after surgery, until about 8 weeks post op, and then she noted the onset of hot flashes, and night sweats, I'm like a furnace at night! around 3 am.Her last depo provera injection was 03/30/21.We discussed that if she is in menopause then we could manage her as a menopausal patient. If her hormone levels are not in menopause range, then there may be something else going on.Check FSH and estradiol. She has a past history of vitamin d deficiency, check vitamin d levels also.all questions answerd.The issues of menopause were discussed at length. Elen Spangler MD [address] [place] [address],[address], [place], [address], [place] - [facility], 10/21/2022 09:25:53 12/02/2022 text/html This visit is a phone telehealth visit. The patient consented to the visit by phone.The patient was at home at the time of the call and the provider and patient were the only people on the line.I was at [address] [place] [address], [address], [place], [place], at the time of the call. She went to the ED with abdominal pain. She hasn't had any pain for a few days. She notes that he ED told her that she had undiagnosed abdominal pain and that she may have recurrent endometriosis. She had a CT scan with contrast at the ED. No abnormality was found. She had been having RLQ pain for years, she was put on lupron and then depo provera, for presumptive endometriosis, and this helped. Then she had hysterectomy. with USO. After surgery the pain was gone but she had profound, life-altering vasomotor symptoms. She is taking estradiol 2 mg a day, and notes this has improved her vasomotor symptoms. She is very hesitant to stop the estradiol, I finally feel like myself again after so long. At the time of her hysterectomy surgery there was no endometriosis found. She messaged Dr. Santiago a few days ago and was advised that she had no endometriosis at the time of surgery, and she was offered surgery now to remove the one remaining ovary. Patient message from 11/29/22: Alvaro. This past Tuesday I ended up going into ER with sharp pains (that started on night) in my lower right abdomen to my right side. The sharp pain comes and goes but discomfort is consistent.?Aft er blood/urine labs and CAT scan they deemed it as undiagnosed abdominal pain and said that it could be an adhesion from surgery, potential endodemtriosis in that spot or a chance that my left ovary could be sending pain to the right right side even though there is not left ovary.?I have had this pain before prior to my hysterectomy and did Infact end up innER over concerns of kidney or appendix concerns only to have a UTI or ovary issues.?A t that point they told me to take ibuprofen, rest and follow up with my PCP, my [employer] and my surgeon from my hysterectomy.?I am hoping that you can help me figure out this pain that I am having bc it? s very concerning to me. I want to make sure I? m doing everything to get to the bottom of this pain. Elen Spangler MD [address] [facility],[address], [place], [address], [place] - [facility], 12/02/2022 11:32:36 06/07/2023 text/html This visit is a phone telehealth visit. The patient consented to the visit by phone. The patient was at work at the time of the call and the provider and patient were the only people on the line. I was at [address] [facility], [address], [place], at the time of the call. Since her hysterectomy she has developed vaginal dryness and dyspareunia, and increased urinary frequency. She was begun on oral estradiol however that has not improved her symptoms. She would like ot know if vaginal estradiol would be useful? Note from 12/11: She went to the ED with abdominal pain. She hasn't had any pain for a few days. She notes that he ED told her that she had undiagnosed abdominal pain and that she may have recurrent endometriosis.She had a CT scan with contrast at the ED. No abnormality was found.She had been having RLQ pain for years, she was put on lupron and then depo provera, for presumptive endometriosis, and this helped.Then she had hysterectomy. with USO.After surgery the pain was gone but she had profound, life-altering vasomotor symptoms.She is taking estradiol 2 mg a day, and notes this has improved her vasomotor symptoms. She is very hesitant to stop the estradiol, I finally feel like myself again after so long. At the time of her hysterectomy surgery there was no endometriosis found.She messaged Dr. Santiago a few days ago and was advised that she had no endometriosis at the time of surgery, and she was offered surgery now to remove the one remaining ovary. Elen Spangler MD [address] [facility],[address], [place], [address], [place] [facility], 06/07/2023 11:59:25 10/24/2023 text/html She is here for annual, doing well on her estradiol 1m oral, and vaginal ring therapy. Note from 2022: She is here for annual, is s/p hysterectomy with USO, for endometriosis, had vasomotor symptoms afterward,her estradiol was in the 300 range but she was started on estradiol to see if this might help and it did, she notes her vasomotor symptoms are entirely resolved.She moved up to 2 mg a day, and had requested to go to 3 mg a day but was advised that 2 mg a day was the highest she should safely go to.She notes lack of libido since the surgery.She has had persistent left breast pain, is seeing a specialist tomorrow morning for that. Elen Spangler MD [address] [facility],[address], [place], [address], [facility], 10/24/2023 12:01:56 07/03/2024 text/html She is here for follow up after a 06/17/24 pelvic MRI that her orthopedic ordered to assess her hip pain showed a 3.5 cm left ovarian cyst. The right ovary has been surgically removed. in 08/09 she had laparoscopic surgery with Uterus, cervix, bilat fallopian tubes and right ovary removed.It was not a pessary seen on MRI it was her Estring. Note from 2022: She is here for annual, is s/p hysterectomy with USO, for endometriosis, had vasomotor symptoms afterward,her estradiol was in the 300 range but she was started on estradiol to see if this might help and it did, she notes her vasomotor symptoms are entirely resolved.She moved up to 2 mg a day, and had requested to go to 3 mg a day but was advised that 2 mg a day was the highest she should safely go to.She notes lack of libido since the surgery. Elen Spangler MD [address], [place], [address], [facility] - [facility], 07/03/2024 15:00:19 OBGyn Episode No OBEpisode recorded.
--- OUTSIDE RECORDS SUMMARY | 2024-07-05 15:06 | XMS_ITS | Clinical Summary ---
Author Organization [facility] Address [address] [place] [address] Care Team Providers Care Senior Sales Compensation Analyst Name Role Phone Jer Ho Primary Care Provider [phone] Allergies Active Allergy Reactions Criticality Noted Date Comments Sulfamethoxazole W-Trimethoprim High 11/11/2015 FACE, LIP, MOUTH, SWELLING Clarithromycin High 11/11/2015 FACE, LIP, MOUTH SWELLING Morphine High 11/11/2015 SKIN PONCE Penicillins High 11/11/2015 SKIN PONCE, FACE, TONGUE, LIP SWELLING Medications Tobramycin 0.3 % Solution Instill 2 drops in left eye every 6 hours x 7 days 1 Bottle 0 11/11/2015 Active Active Problems No known active problems Social History Tobacco Use Types Packs/Day Years Used Date Smoking Tobacco: Never Smokeless Tobacco: Never Alcohol Use Standard Drinks/Week Comments Not Asked 0 (1 standard drink = 0.6 oz pur e alcohol) Comments No Sex and Gender Information Value Date Recorded Sex Assigned at Not on file Legal Sex Female 5:32 PM EDT Gender Identity Not on file Sexual Orientation Not on file Last Filed Vital Signs Vital Sign Reading Time Taken Comments Blood Pressure 130/78 11/11/2015 5:53 PM EDT Pulse 84 11/11/2015 5:53 PM EDT Temperature 36.8 ??C (98.3 ??F) 11/11/2015 5:53 PM ED T Respiratory Rate 16 11/11/2015 5:53 PM EDT Oxygen Saturation - - Inhaled Oxygen Concentration - - Weight - - Height - - Body Mass Index - - Plan of Treatment Health Maintenance Due Date Last Done Comments Hepatitis C Screening 1980 Pap Smear 1996 DTaP/Tdap/Td (1 - Tdap) 01/26/1998 Hep B (1 of 3 - 19+ 3-dose series) 01/26/1999 Mammogram/Breast Imaging 2020 COVID-19 Vaccine (1 - 2023-2 5 season) 2023 Influenza (#1) 2023 Zoster (Shingrix) (1 of 2) 01/26/2030 HPV Vaccine Aged Out No longer eligi ble based on patient's age to complete this topic Hep A Aged Out No longer eligi ble based on patient's age to complete this topic Hib Aged Out No longer eligi ble based on patient's age to complete this topic Meningococcal ACWY Aged Out No longer eligible based on patient's age to complete this topic Pneumococcal Aged Out No longer eligi ble based on patient's age to complete this topic Insurance [facility] [employer] [employer] HMO Care Teams Senior Sales Compensation Analyst Relationship Specialty Start Date End Date Jer Ho [facility] [address] [place] [phone] PCP - General Internal Medicine 11/11/15
--- OUTSIDE RECORDS SUMMARY | 2024-07-05 15:06 | XMS_ITS ---
Author Organization [facility] Address [address] [place] [address] Care Team Providers Care Bottle House Quality Control Technician Name Role Phone Bharathleticia Mary Unavailable [phone] REASON FOR VISIT RE:Past Lab report Encounters Encounter Location Date Provider Diagnosis [address] [place] [address] 07/02/2024 Mary Sawyer PLAN OF TREATMENT Next Appt Details Provider Name:GENNA ARREOLA, 07/06/2024 08:15:00 AM, [address], [address], [address], Provider Name:Mary Sawyer, 0 07/30/2024 08:30:00 AM, [address], [address] [place] [address], [phone], Provider Name:Mary Sawyer, 0 08/30/2024 08:00:00 AM, [address], [address], [address], Progress Notes * Candelaria RAMIREZOB:1979 (44 yo F)Acc No.[id number]:07/02/2024 Patient:??ASHLEY Yoana :1980?Age:44 Y?Sex:Fe male Address:[address] [place] [address] [place] [address] * true * Date:??
--- OUTSIDE RECORDS SUMMARY | 2024-07-05 15:06 | XMS_ITS | Clinical Summary ---
Author Organization [facility] Address [address] [place] [address] Care Team Providers Care Homeowner Association Manager Name Role Phone Lexa Carmona MD Primary Care Provider [phone] Allergies Active Allergy Reactions Criticality Noted Date Comments Adhesives/Tape Rash/Dermatitis Low 12/10/2022 Clarithromycin Hives,Anaphylaxis High 02/02/2015 FACE, LIP, MOUTH SWELLING Ibuprofen Anaphylaxis High 12/10/2022 coating on medication Morphine Shortness Of Breath,Hives,Anaphylaxi s High 02/02/2015 SKIN PONCE Naproxen Anaphylaxis,Other (S ee Comments) High 12/10/2022 coating on medication Penicillin G Anaphylaxis High 12/10/2022 Sulfa Antibiotics Anaphylaxis High 12/10/2022 Medications busPIRone (BUSPAR) 10 MG tablet TAKE 1 TABLET BY MOUTH 3 TIMES A DAY half Active EPINEPHrine 0.3 mg/0.3 mL IJ auto-injection INJECT 0.3 MG INTRAMUSCULARLY ONCE 01/16/20 22 Active hydrOXYzine HCl (ATARAX) 25 MG tablet TAKE 1/2 TABLET BY MOUTH DAILY NEEDED FOR ANXIETY 11/26/19 23 Active Multiple Vitamin tablet Take 1 tablet by mouth daily. Active estradiol (ESTRACE) 1 MG tablet Take 1 tablet by mouth daily. Active Zepbound 5 MG/0.5ML pen-injector 05/18/19 24 Active Family History Medical History Relation Name Comments Brain tumor Father Shayan Cancer, other Father Shayan Throat cancer (smoking) Lung cancer Father Shayan Throat cancer Father Shayan Brain tumor Mother Yuridia Breast cancer Mother Yuridia Kidney Stones Other Step Sister Relation Name Status Comments Father Shayan Mother Yuridia Other Step Sister Alive Social History Tobacco Use Types Packs/Day Years Used Date Smoking Tobacco: Never Smokeless Tobacco: Never Alcohol Use Standard Drinks/Week Comments Not Currently 0 (1 standard drink = 0.6 oz pur e alcohol) Occasionally Comments Unknown Sex and Gender Information Value Date Recorded Sex Assigned at Female 12/09/2022 11:45 AM EDT Legal Sex Female 11:41 AM EDT Gender Identity Female 12/09/2022 11:45 AM EDT Sexual Orientation Choose not to disclose 2022 11:45 AM EDT Last Filed Vital Signs Vital Sign Reading Time Taken Comments Blood Pressure 116/80 05/27/2023 8:08 AM EST Pulse 80 05/27/2023 8:08 AM EST Temperature - - Respiratory Rate - - Oxygen Saturation - - Inhaled Oxygen Concentration - - Weight 76.9 kg (169 lb 9.6 oz) 05/27/2023 8:08 A M EST Height 160 cm (5' 3 ) 05/27/2023 8:08 AM EST Body Mass Index 30.04 05/27/2023 8:08 AM EST Plan of Treatment Health Maintenance Due Date Last Done Comments Hepatitis C Virus Screening 1980 HIV Screening 01/26/1993 DTaP/Tdap/Td Vaccines (1 - Tdap) 01/26/1999 Hepatitis B Vaccines (1 of 3 - 19+ 3-dose series) 01/26/1999 Pap Smear (Ages 21-65) 01/26/2001 Mammogram 2020 Influenza Vaccine 10/20/2023 01/20/2022, , 12/02/2020, Additional history exists COVID-19 Vaccine ( season) 2023 01/04/2021, 06/29/2020, 06/07/2020 HPV Vaccines Aged Out No longer eligi ble based on patient's age to complete this topic Pneumococcal Vaccine: Pediatric (0-5 Years) and At-Risk Patients (6 to 49 Years) Aged Out No longer eligible based on patient's age to complete this topic Insurance [facility] Care Teams Homeowner Association Manager Relationship Specialty Start Date End Date Lexa Carmona MD [address] [place] [address] [place] [address] PCP - General Internal Medicine 12/09/22
--- OUTSIDE RECORDS SUMMARY | 2024-07-05 15:06 | XMS_ITS ---
Author Organization [facility] Address [address] [place] [address] Care Team Providers Care Supervisor Maintenance Name Role Phone Bharathleticia Mary Unavailable [phone] REASON FOR VISIT Past Lab report Encounters Encounter Location Date Provider Diagnosis [address] [place] [address] 06/29/2024 Mary Sawyer PLAN OF TREATMENT Next Appt Details Provider Name:GENNA ARREOLA, 07/06/2024 08:15:00 AM, [address], [address] [place] [address], [phone], Provider Name:Mary Sawyer, 0 07/30/2024 08:30:00 AM, [address], [address], [address], Provider Name:Mary Sawyer, 0 08/30/2024 08:00:00 AM, [address], [facility] [address], [address], Progress Notes * Candelaria RAMIREZOB:1979 (44 yo F)Acc No.[id number]:06/29/2024 Patient:??ASHLEY Yoana :1980?Age:44 Y?Sex:Fe male Address:[address] [place] [address] [place] [address] * true * Date:??
--- OUTSIDE RECORDS SUMMARY | 2024-07-05 15:07 | XMS_ITS | Continuity of Care Document ---
Author Organization [place] [facility],, ELEN GREGORY MD Address [address] [address] Care Team Providers Care Publication Director Name Role Phone RHEA CHOU Primary Care Provider Assessment No assessment recorded. Plan of Treatment Reminders Order Date Submit Date Provider Last Modified By Organization Details Last Modified Time Details Appointments ANNUAL EXAM 2024 08:00A M Elen Gregory MD Not available Not available Not available Lab None recorded. Referral None recorded. Procedures None recorded. Surgeries None recorded. Imaging US, pelvis, transabdo sarah + transvagi nal - 3.5 cm left ovarian cyst on recent MRI, past history of unilatera l salpingo oophorect alfonso with hysterect alfonso for endometri osis, please assess left ovary 2024 025 [email or web address] Orders, [address], [address], [place], [address], 07/03/2024 15:04:30 Medication Orders None recorded. Patient TargetsNo targets recorded. Patient Instructions Encounter Date Encounter Id Patient Instructions Last Modified By Organization Details Last Modified Time 07/03/2024 [id number] She is here for follow up after [...] Abnormal Flag Note LastModifiedBy Organization Detail LastModifiedTime 06/06/19 25 06/05/2024 MAMMO , scree tyrone, digit al, bilat eral No observ ation record ed. [email or web address] [address] [place], [address], 07/03/2024 13:44:30 06/23/19 25 06/17/2024 MRI, pelvi s, w/ contr ast No observ ation record ed. [facility] [address] [place], [address], 06/22/2024 08:50:27 07/05/19 25 MAMMO , diagn ostic , digit al, unila teral No observ ation record ed. BARCODE [facility] Orders [address], [place], [address], 07/04/2024 07:22:23 Result Notes None recorded. Problems Name Problem SNOMED Code Status Onset Date Resolution Date Notes Provider Name and Address Organization Details Recorded Time Endometrios is (clinical) 526218210 Active 2021 Apple villalobos [place] [facility], 2 15:09:24 Anxiety 19326757 Active 2021 [place] in [facility], 2 15:09:35 History of endometrios is 5618505242698 4107 Active 2021 Elen Gregory MD [address], [place], [address], [place] - [facility], 2 15:47:20 Family history of malignant neoplasm of breast in first degree relative 490798690 Active 2021 Elen Gregory MD [address], [place], [address], [place] - [facility], 2 11:54:08 Family history of malignant neoplasm of male breast 938186129 Active 2021 Elen Gregory MD [address], [place], [address], [place] [facility], 2 11:55:02 At high risk for malignant neoplasm of breast 8803455301650 02 Active 2021 Tyrer- [facility]uzik 23.8% Elen Gregory MD [address], [place], [address], [place] [facility], 2 13:56:26 Atrophic vaginitis 87241663 Active 2023 Elen Gregory MD [address], [place], [address], [place] [facility], 4 10:54:35 Dyspareunia 37023169 Active 2023 Elen Gregory MD [address] [facility], [address], [place], [address] , [place] in [facility], 4 11:07:40 Problem Notes None recorded. Procedures Surgical History Date Name Laterality Status Provider Name and Address Organization Details Recorded Time 06/02/19 25 Most Recent Mammogram completed Brianna Meza in [facility], 07/03/2024 13:28:13 07/21/19 22 Hysterectomy completed Apple Meza in [facility], 10/20/2021 14:52:17 repair of incisional hernia completed Brianna Meza in [facility], 10/16/2021 11:14:40 section completed Brianna Meza in [facility], 10/16/2021 11:14:53 lumpectomy of breast completed Brianna Meza in [facility], 10/16/2021 11:15:11 leg repair completed Apple Meza in [facility], 10/20/2021 15:14:08 Nipple/areola reconstruction completed Apple Meza in [facility], 10/20/2021 15:12:50 Dilation and Curettage completed Brianna Meza in [facility], 10/16/2021 11:16:51 Tonsillectomy completed Brianna Meza in [facility], 10/16/2021 11:17:35 orthognathic operation of mandible completed Apple Meza in [facility], 10/20/2021 15:13:21 procedure on back completed Kusum Meza in [facility], 10/20/2021 15:14:52 Imaging Results None recorded. Procedure Notes None recorded. Medical Equipment None Reported. Allergies Allergen ID Allergen Name Allergen Category Reaction Reaction Severity Criticality Documentation Date Start Date Code Code System Note Provider Name and Address Organization Details Recorded Time 75524 Aleve medicatio n other Not available Not available 10/16/2021 93385 1 RxNorm tongu e swell ing Brianna Meczywor null, [place] [facility], 2 11:24:54 51319 Bactrim medicatio n hives Not available Not available 10/16/2021 46634 9 RxNorm Brianna Meczywor null, [place] [facility], 2 11:25:08 32991 Biaxin medicatio n hives Not available Not available 10/16/2021 72705 9 RxNorm Brianna Meczywor null, [place] - [facility], 2 11:25:25 16596 adhesive tape environme nt,medica tion Not available Not available Not available 10/16/2021 40928 UNK paper skin peels Brianna Meczywor null, [place] - [facility], 2 11:25:46 09528 Zoloft medicatio n facial swelling Not available Not available 10/16/2021 38611 RxNorm Brianna Meczywor null, [place] [facility], 2 11:26:28 00334 morphine medicatio n dyspnea hives Not available Not available Not available 10/16/2021 7052 RxNorm Brianna Meczywor null, [place] [facility], 2 11:26:51 60197 Product containin g penicilli n (product) medicatio n hives Not available Not available 10/16/2021 88679 8001 SNOMED Brianna Meczywor null, [place] [facility], 2 11:27:17 04481 Substance with sulfonami de structure and antibacte rial mechanism of action (substanc e) medicatio n hives severe high 10/20/2021 50626 8003 SNOMED Apple Jalen null, [place] - [facility], 2 15:05:15 Medications Name Sig Start Date [...] Updated DateTime 5 158.75 cm 24.9 kg/m2 76528.4 7 g 85 /min 110 mm[Hg] 51 mm[Hg] Brianna Meza in [facility], 5 13:27:06 Social History Question Answer Notes LastModified by Organizat ion Details LastModified Time Tobacco Smoking Status Never Smoker [place] in [facility], 10/16/2021 11:20:34 What Is Your Level Of [...] Or The Highest Degree You Have Received? [id number] Information not available 10/20/2021 Who Is Your Employer? 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 Information not available 10/16/2021 Are There Any [...] Anxious, Or Unable To Sleep At Night)? [id number] Information not available 10/20/2021 Do You Use [...] for MyRisk panel N Autoimmune Condition N Thyroid Problems N Kidney or Bladder Problems N GI Problems N Lung Disease N Depression N Defects or Inherited Disease N Anemia N History of Ovarian Cancer N History of Breast Cancer N PAUL exposure N BRCA testing in past N Osteopenia N Psychiatric Illness N Anxiety Disorder N Diabetes N Arthritis N Headaches or Migraines N Infertility N Asthma N History of Cancer N Endometriosis N Hepatitis N Heart Disease N Hypertension N Osteoporosis N Gynecological History Statement/Question Response If Post Menopausal, Age at Menopause 41 Duration of Flow (days) Most Recent Mammogram 06/01/2024 Obstetrics History GPAL:G 2 P 1 0 0 1 Type Value Full Term 1 Living 1 Total 2 Immunizations Vaccine Type Date Status Note Provider Nam steven and Address Organization Details Recorded Time COVID-19, mRNA, LNP-S, PF, 100 mcg/0.5mL dose or 50 mcg/0.25mL dose completed Apple villalobos [place] [facility], 10/20/2021 15:08:14 COVID-19, mRNA, LNP-S, PF, 100 mcg/0.5mL dose or 50 mcg/0.25mL dose 1 completed Apple Rao null, [place] [facility], 10/20/2021 15:08:28 COVID-19, mRNA, LNP-S, PF, 100 mcg/0.5mL dose or 50 mcg/0.25mL dose 1 completed Apple Rao null, [place] [facility], 10/20/2021 15:08:39 Influenza, split virus, quadrivalent, preservative 1 completed Apple Rao null, [place] [facility], 10/20/2021 15:08:50 COVID-19, mRNA, LNP-S, PF, 30 mcg/0.3 mL dose 1 completed Brianna Meczywor null, [place] [facility], 03/05/2022 13:26:19 Influenza, MDCK, quadrivalent, PF 7 completed Brianna Meczywor null, [place] [facility], 03/05/2022 13:26:19 Influenza, MDCK, quadrivalent, PF 0 completed Brianna Meczywor null, [place] [facility], 03/05/2022 13:26:19 COVID-19, mRNA, LNP-S, PF, 30 mcg/0.3 mL dose 1 completed Brianna Meczywor null, [place] [facility], 03/05/2022 13:26:19 Influenza, split virus, quadrivalent, PF 1 completed Brianna Meczywor null, [place] [facility], 03/05/2022 13:26:19 Influenza, split virus, trivalent, preservative 6 completed Brianna Meczywor null, [place] [facility], 03/05/2022 13:26:19 COVID-19, mRNA, LNP-S, PF, 30 mcg/0.3 mL dose 1 completed Brianna Meczywor null, [place] [facility], 03/05/2022 13:26:19 Influenza, MDCK, quadrivalent, PF 9 completed Brianna Meczywor null, [place] [facility], 03/05/2022 13:26:19 Influenza, MDCK, quadrivalent, PF 8 completed Brianna Meczywor null, [place] [facility], 03/05/2022 13:26:19 influenza, unspecified formulation 2 completed Brianna Meczywor null, [place] [facility], 03/05/2022 13:27:03 Past Encounters Encounter ID Performer Location Encounter Start Date Encounter Closed Date Diagnosis/Indication Diagnosis SNOMED-CT Code Diagnosis ICD10 Code Diagnosis Note [id number] MD ELEN Martinez MD 200 [facility] [address] [place] [address] 07/03/2024 13:11:22 07/03/2024 15:04:30 Cyst of ovary 23427292 N83.202 At high [facility] malignant neoplasm of breast 0095107585 56079 Z91.89 Anxiety 52929759 F41.9 Health Concerns Section Related Observation LastModified by Organization Detai ls LastModified Time None Recorded Concern Status LastModified by Organization Details LastModified Time None Recorded Payers Encounter Date Sequence Insurance Name Policy Number Policy Oliva Covered Member ID Oliva Member ID Guarantor Name 07/03/2024 1 [facility] [place] [id number] Kahlil Goncalves [id number] Yoana Goncalves Notes Date Note Type Note Provider Name and Address Organization Details Recorded Time 07/03/2024 text/html She is here for follow [...] lack of libido since the surgery. Elen Gregory MD [address] [facility],[address], [place], [address], [place] [facility], 07/03/2024 15:00:19 OBGyn Episode No OBEpisode recorded.
--- OUTSIDE RECORDS SUMMARY | 2024-07-05 15:07 | XMS_ITS | Patient Health Record ---
Author Organization [facility] Address [address] [place] [address] Care Team Providers Care [employer] Name Role Phone Mary Sawyer Unavailable [phone] ERLINGENNA LACEY Unavailable [phone] ALLERGIES Allergen (clinical drug ingredient) Drug/Non Drug Allergy documented on EMR Reaction Allergy Type Onset Date Status IV Dye (uncoded) anaphylaxis Allergy A ctive paper tape (uncoded) hives Allergy Active sulfamethoxazole / trimethoprim Bactrim anaphylaxis Drug Allergy Active Biaxin anaphylaxis Drug Allergy Activ e morphine Morphine hives Drug Allergy Active Penicillin anaphylaxis Drug Allergy Acti ve RESULTS Component Value Reference Range Notes LIPID PANEL WITH REFLEX TO D IRECT LDL Reviewed date:07/03/2024 02:23:18 PM Interpretation: Performing Lab: Notes/Report: Cholesterol 222 0-200 mg/dL Triglycerides 53 0-150 mg/dL HDL 80 >=40 mg/dL LDL Calculated 131 0-100 mg/dL VLDL Cholesterol Magdi 10.6 Non HDL Chol. (LDL+VLDL) 142 <145 mg/dL Chol/HDL Ratio 2.8 0.0-4.4 VITAMIN D 25 HYDROXY Reviewed date:07/03/2024 02:24:24 PM Interpretation: Performing Lab: Notes/Report: Vit D, 25-Hydroxy 26.8 30.0-80.0 ng/mL COMPREHENSIVE METABOLIC PANE L Reviewed date:07/02/2024 01:58:46 PM Interpretation: Performing Lab: Notes/Report: Sodium 139 133-145 mmol/L Potassium 4.0 3.5-5.5 mmol/L Chloride 103 96-110 mmol/L CO2 31 21-32 mmol/L Anion Gap 5 3-11 Glucose 75 70-100 mg/dL BUN 15 5-25 mg/dL Creatinine 0.74 0.50-1.10 mg/dL eGFR 102 >=60 mL/min/1.73m2 Calculati on based on the?Chronic Kidney Disease Epidemiology Collaboration (CKD-EPI) equation refit?without adjustment for race. BUN/Creatinine Ratio 20.3 Calcium 9.2 8.5-10.5 mg/dL AST (SGOT) 17 10-42 unit/L ALT (SGPT) 24 10-60 unit/L Alkaline Phosphatase 38 42-121 unit/L Total Protein 6.9 6.0-8.0 g/dL Albumin 4.1 3.2-5.0 g/dL Total Bilirubin 0.8 0.0-1.4 mg/dL VITAMIN B12 Reviewed date:07/02/2024 01:58:18 PM Interpretation: Performing Lab: Notes/Report: Vitamin B-12 1485 250-900 pcg/mL REASON FOR REFERRAL No Information MEDICATIONS Medication SIG (Take, Route, Fr equency, Duration) Notes Start Date End Date Status Estradiol 1 MG 1 tablet Orally Once a day Active Multi Vitamin Active Zoloft 50 MG 1 tablet Orally Once a day a night Active ZyrTEC 10 MG 1 tablet Orally Once a day Active Zepbound 7.5 MG/0.5ML 0.5 mL Subcutaneou s once weekly for 30 days Active SOCIAL HISTORY Tobacco Use: Social History Observation Description Date Details (start date - stop date) Never Smoker NA - NA Sex Assigned At : Social History Observation Description Sex Assigned At Unknown Tobacco Use/Smoking Question Answer Notes Are you a nonsmoker Alcohol Screen (Audit-C) Question Answer Notes Did you have a drink contain ing alcohol in the past year? Yes How often did you have a dri nk containing alcohol in the past year? Monthly or less (1 point) Points 1 Interpretation Negative PROBLEMS Problem Type ICD Code Onset Dates Problem Status W/U Status Risk SNOMED Code Notes Problem Other obesity due to excess calories (E66.09) Active confirmed 084200350 Problem Vitamin D deficiency (E55.9) Active confirmed Vitamin D deficiency (89411517) Problem Body mass index [BMI] 31.0-31.9, adult (Z68.31) Active confirmed 052743513 Problem Endometriosis (N80.9) Active confirmed 114772785 Problem BMI 29.0-29.9,adult (Z68.29) Active confirmed 408525234 Problem BMI 28.0-28.9,adult (Z68.28) Active confirmed 461818490 Problem Anemia due to vitamin B12 deficiency, unspecified B12 deficiency type (D51.9) Active confirmed Vitamin B>12< deficiency anaemia (88566733) Problem BMI 27.0-27.9,adult (Z68.27) Active confirmed 632791743 Problem BMI 30.0-30.9,adult (Z68.30) Active confirmed 814382434 Problem Overweight (BMI 25.0-29.9) (E66.3) Active confirmed 024562868 Problem Elevated lipids (E78.5) Active confirmed Elevated fasting lipid profile (659027933704) VITAL SIGNS Heart Rate 84 /min 06/26/2024 Blood pressure diastolic 60 mm Hg 06/26/2024 Oximetry 98 % 06/26/2024 Height 62 in 06/26/2024 Blood pressure systolic 100 mm Hg 06/26/2024 Weight 142 lbs 06/26/2024 BMI 25.97 kg/m2 06/26/2024 Encounters Encounter Location Date Provider Diagnosis [facility] [address] [facility] [address] [place] [phone] 09/15/[address] [facility] [address] [facility] [address] [place] [phone] 10/10/2023 GENNA KERNIgnacio [address] [facility] [address] [place] [phone] 11/22/2023 Mary Svrcek [address] [facility] [address] [place] [phone] 02/03/2024 GENNA ARREOLA Other obesity due to excess calories E66.09 [address] [facility] [address] [place] [address] 02/10/2024 GENNA ARREOLA [address] [facility] [address] [place] [address] 03/28/2024 Mary Svrcek [address] [facility] [address] [place] [phone] 04/30/[address] [facility] [address] [facility] [address] [phone] 05/08/2024 GENNA [facility] [address] 06/15/2024 GENNA ARREOLA [facility] 119 299 [facility] 119 [place], [place] 08/01/2023 Mary Svrcek Other obesity due to excess calories E66.09 ; BMI 28.0-28.9,adult Z68.28 ; Endometriosis N80.9 and Weight loss counseling, encounter for Z71.3 [address] 08/31/2023 Mary Svrcek Other obesity due to excess calories E66.09 ; BMI 27.0-27.9,adult Z68.27 ; Endometriosis N80.9 and Weight loss counseling, encounter for Z71.3 [facility] [address] 10/20/2023 Mary Svrcek Other obesity due to excess calories E66.09 ; BMI 27.0-27.9,adult Z68.27 ; Endometriosis N80.9 and Weight loss counseling, encounter for Z71.3 [address] 12/27/2023 Mary Svrcek Other obesity due to excess calories E66.09 ; BMI 26.0-26.9,adult Z68.26 ; Endometriosis N80.9 and Weight loss counseling, encounter for Z71.3 [facility] [address] 02/21/2024 Mary Svrcek Other obesity due to excess calories E66.09 ; BMI 26.0-26.9,adult Z68.26 ; Endometriosis N80.9 ; Weight loss counseling, encounter for Z71.3 and Elevated lipids E78.5 [facility] [address] 04/11/2024 Mary Svrcek Other obesity due to excess calories E66.09 ; BMI 26.0-26.9,adult Z68.26 ; Endometriosis N80.9 and Weight loss counseling, encounter for Z71.3 [facility] [address] [address] 05/24/2024 Mary Svrcek BMI 25.0-25.9,adult Z68.25 ; Overweight (BMI 25.0-29.9) E66.3 ; Endometriosis N80.9 and Weight loss counseling, encounter for Z71.3 [address] [facility] [address] [place] [address] 06/26/2024 Mary Svrcek BMI 25.0-25.9,adult Z68.25 ; Overweight (BMI 25.0-29.9) E66.3 ; Endometriosis N80.9 ; Weight loss counseling, encounter for Z71.3 ; Vitamin D deficiency E55.9 and Anemia due to vitamin B12 deficiency, unspecified B12 deficiency type D51.[address] [facility] [address] [facility] [address] [place] [phone] 07/13/2023 Mary Svrcek Other obesity due to excess calories E66.[address] [facility] [address] [facility] [address] [place] [phone] 09/12/2023 Mary Svrcek Other obesity due to excess calories E66.09 [address] [facility] [address] [place], [place] 11/16/2023 Mary Svrcek [address] [facility] [address] [place] [address] 06/25/[address] [address] [facility] [address] [facility] [address] [place] [phone] 07/13/2023 Mary Svrcek Other obesity due to excess calories E66.[address] [facility] [address] [facility] [address] [place] [phone] 07/15/2023 Mary Svrcek Other obesity due to excess calories E66.[address] [facility] [address] [facility] [address] [place] [phone] 07/18/[address] [facility] [address] [facility] [address] [place] [phone] 09/21/[address] [address] [facility] [address] [facility] [address] [place] [phone] 09/21/[address] [address] [facility] [address] [facility] [address] [facility] [address] [place] [phone] 09/21/[address] [address] [facility] [address] [facility] [address] [place] [phone] 09/21/[address] [address] [facility] [address] [place] [address] 10/03/[address] [address] [facility] [address] [place] [phone] 10/03/[address] [facility] [address] [facility] [address] [place] [address] 12/06/[address] [address] [facility] [address] [place] [phone] 06/25/[address] [facility] [address] [facility] [address] [place] [address] 06/29/[address] [facility] [address] [facility] [address] [place] [address] 07/02/[address] [facility] [address] [facility] [address] [place] [phone] 07/02/2024 Mary Sawyer ASSESSMENTS Encounter Date Diagnosis Assessment Notes Treatment Notes Treatment Clinical Notes Section Notes 07/13/2023 Other obesity due to excess calories (ICD-10 - E66.09) 07/13/2023 Other obesity due to excess calories (ICD-10 - E66.09) 07/15/2023 Other obesity due to excess calories (ICD-10 - E66.09) 08/01/2023 Other obesity due to excess calories (ICD-10 - E66.09) #Obesity. 08/01/23: 156.9 lbs, BMI 28.5 She is doing well on Zepbound. KEYONA given today. Currently on Zepbound 10 mg. Down another 5 lbs. Discussed continuing to work on muslce mass with consistent protein intake and resistance training. Continue current regimen. Follow up in 4 weeks, sooner with any concerns. 06/29/23: 162 lbs, BMI 29.36: Zepbound 7.5 mg 06/01/23: 168.76, BMI 30.9 She is doing well on Zepbound with first dose at 5 mg yesterday. 05/04/23: Weight 170.75 pounds, BMI 31.2. Zepbound 2.5 mg #Endometriosis- S/p hysterectomy, left ovary remains. Currently on estradiol. Managed by PCP and POLYSOM TECH. The patient will continue exercise regimen with an emphasis on improving/increasing steps to at least 6,000-10,000 steps per day. Increasing cardio and strength training exercises as tolerated to improve weight loss and work on building muscle mass. Patient is committed to smarter eating with calorie counting and mindful eating. Limiting processed foods and carbohydrates and increasing leafy greens and lean proteins as well as fruits into their diet. Patient was counseled on the importance of eating local, organic food when possible. Patient has been counseled regarding effects of GLP/GIP-1 agonists and other FDA approved weight loss medications with regards to a multifactorial approach of weight loss as mentioned above and that the medication alone will not be sufficient to meet patients goals. We discussed holistic medication approach with emphasis on lifestyle modification. Discussed obesity as it increases risk of diabetes, cardiovascular disease, and/or organ damage. We spent a lot of time discussing the relationship between food, exercise, sleep, mental health, and obesity. We discussed the importance of having SECAs done every visit and having accountability done during these visits. That the scale is done to monitor not only weight loss but the body composition during medication management and healthy lifestyle changes. We discussed that if the patient is unable at times to financially afford this scale that we would rather waive the fee and have the scale done than have the patient not have the scale obtained. Will follow up with the patient in 4 weeks time to monitor weight loss. Total time was 30 min, greater than 50 % of time was spent on care coordination Case discussed with collaborating physician Ignacio Liu who reviewed the assessment and plan. Chart, medications, labs, vital signs reviewed. Dictation was accomplished with the use of [employer] voice recognition software, prone to medical misidentifications and grammatical errors. This is unintentional and the practitioner does try to identify and correct these, but some could still be present. Please do not hesitate to contact practitioner for clarification. All questions answered to patients satisfaction. Patient verbalized understanding of diagnosis and treatments explained. To call sooner prior to next visit it any questions/concerns arise. 08/01/2023 BMI 28.0-28.9,adult (ICD-10 - Z68.28) #Obesity. 08/01/23: 156.9 lbs, BMI 28.5 She is doing well on Zepbound. KEYONA given today. Currently on Zepbound 10 mg. Down another 5 lbs. Discussed continuing to work on muslce mass with consistent protein intake and resistance training. Continue current regimen. Follow up in 4 weeks, sooner with any concerns. 06/29/23: 162 lbs, BMI 29.36: Zepbound 7.5 mg 06/01/23: 168.76, BMI 30.9 She is doing well on Zepbound with first dose at 5 mg yesterday. 05/04/23: Weight 170.75 pounds, BMI 31.2. Zepbound 2.5 mg #Endometriosis- S/p hysterectomy, left ovary remains. Currently on estradiol. Managed by PCP and POLYSOM TECH. The patient will continue exercise regimen with an emphasis on improving/increasing steps to at least 6,000-10,000 steps per day. Increasing cardio and strength training exercises as tolerated to improve weight loss and work on building muscle mass. Patient is committed to smarter eating with calorie counting and mindful eating. Limiting processed foods and carbohydrates and increasing leafy greens and lean proteins as well as fruits into their diet. Patient was counseled on the importance of eating local, organic food when possible. Patient has been counseled regarding effects of GLP/GIP-1 agonists and other FDA approved weight loss medications with regards to a multifactorial approach of weight loss as mentioned above and that the medication alone will not be sufficient to meet patients goals. We discussed holistic medication approach with emphasis on lifestyle modification. Discussed obesity as it increases risk of diabetes, cardiovascular disease, and/or organ damage. We spent a lot of time discussing the relationship between food, exercise, sleep, mental health, and obesity. We discussed the importance of having SECAs done every visit and having accountability done during these visits. That the scale is done to monitor not only weight loss but the body composition during medication management and healthy lifestyle changes. We discussed that if the patient is unable at times to financially afford this scale that we would rather waive the fee and have the scale done than have the patient not have the scale obtained. Will follow up with the patient in 4 weeks time to monitor weight loss. Total time was 30 min, greater than 50 % of time was spent on care coordination Case discussed with collaborating physician Ignacio Liu who reviewed the assessment and plan. Chart, medications, labs, vital signs reviewed. Dictation was accomplished with the use of [employer] voice recognition software, prone to medical misidentifications and grammatical errors. This is unintentional and the practitioner does try to identify and correct these, but some could still be present. Please do not hesitate to contact practitioner for clarification. All questions answered to patients satisfaction. Patient verbalized understanding of diagnosis and treatments explained. To call sooner prior to next visit it any questions/concerns arise. 08/31/2023 Other obesity due to excess calories (ICD-10 - E66.09) #Obesity. 08/31/23: 153 lbs. BMI 27.8. She is doing fantastic on Zepbound 10 mg. Will continue current regimen. KEYONA injection also given today. She is getting close to her goal and will continue to work on building muscle mass. Continue increased protein intake, hydration and regular exercise. Will follow-up in 6 weeks sooner with any concerns. 08/01/23: 156.9 lbs, BMI 28.5 She is doing well on Zepbound. KEYONA given today. Currently on Zepbound 10 mg. 06/29/23: 162 lbs, BMI 29.36: Zepbound 7.5 mg 06/01/23: 168.76, BMI 30.9 She is doing well on Zepbound with first dose at 5 mg yesterday. 05/04/23: Weight 170.75 pounds, BMI 31.2. Zepbound 2.5 mg #Endometriosis- S/p hysterectomy, left ovary remains. Currently on estradiol. Managed by PCP and POLYSOM TECH. The patient will continue exercise regimen with an emphasis on improving/increasing steps to at least 6,000-10,000 steps per day. Increasing cardio and strength training exercises as tolerated to improve weight loss and work on building muscle mass. Patient is committed to smarter eating with calorie counting and mindful eating. Limiting processed foods and carbohydrates and increasing leafy greens and lean proteins as well as fruits into their diet. Patient was counseled on the importance of eating local, organic food when possible. Patient has been counseled regarding effects of GLP/GIP-1 agonists and other FDA approved weight loss medications with regards to a multifactorial approach of weight loss as mentioned above and that the medication alone will not be sufficient to meet patients goals. We discussed holistic medication approach with emphasis on lifestyle modification. Discussed obesity as it increases risk of diabetes, cardiovascular disease, and/or organ damage. We spent a lot of time discussing the relationship between food, exercise, sleep, mental health, and obesity. We discussed the importance of having SECAs done every visit and having accountability done during these visits. That the scale is done to monitor not only weight loss but the body composition during medication management and healthy lifestyle changes. We discussed that if the patient is unable at times to financially afford this scale that we would rather waive the fee and have the scale done than have the patient not have the scale obtained. Will follow up with the patient in 4 weeks time to monitor weight loss. Total time was 30 min, greater than 50 % of time was spent on care coordination Case discussed with collaborating physician Ignacio Liu who reviewed the assessment and plan. Chart, medications, labs, vital signs reviewed. Dictation was accomplished with the use of [employer] voice recognition software, prone to medical misidentifications and grammatical errors. This is unintentional and the practitioner does try to identify and correct these, but some could still be present. Please do not hesitate to contact practitioner for clarification. All questions answered to patients satisfaction. Patient verbalized understanding of diagnosis and treatments explained. To call sooner prior to next visit it any questions/concerns arise. 08/31/2023 BMI 27.0-27.9,adult (ICD-10 - Z68.27) #Obesity. 08/31/23: 153 lbs. BMI 27.8. She is doing fantastic on Zepbound 10 mg. Will continue current regimen. KEYONA injection also given today. She is getting close to her goal and will continue to work on building muscle mass. Continue increased protein intake, hydration and regular exercise. Will follow-up in 6 weeks sooner with any concerns. 08/01/23: 156.9 lbs, BMI 28.5 She is doing well on Zepbound. KEYONA given today. Currently on Zepbound 10 mg. 06/29/23: 162 lbs, BMI 29.36: Zepbound 7.5 mg 06/01/23: 168.76, BMI 30.9 She is doing well on Zepbound with first dose at 5 mg yesterday. 05/04/23: Weight 170.75 pounds, BMI 31.2. Zepbound 2.5 mg #Endometriosis- S/p hysterectomy, left ovary remains. Currently on estradiol. Managed by PCP and POLYSOM TECH. The patient will continue exercise regimen with an emphasis on improving/increasing steps to at least 6,000-10,000 steps per day. Increasing cardio and strength training exercises as tolerated to improve weight loss and work on building muscle mass. Patient is committed to smarter eating with calorie counting and mindful eating. Limiting processed foods and carbohydrates and increasing leafy greens and lean proteins as well as fruits into their diet. Patient was counseled on the importance of eating local, organic food when possible. Patient has been counseled regarding effects of GLP/GIP-1 agonists and other FDA approved weight loss medications with regards to a multifactorial approach of weight loss as mentioned above and that the medication alone will not be sufficient to meet patients goals. We discussed holistic medication approach with emphasis on lifestyle modification. Discussed obesity as it increases risk of diabetes, cardiovascular disease, and/or organ damage. We spent a lot of time discussing the relationship between food, exercise, sleep, mental health, and obesity. We discussed the importance of having SECAs done every visit and having accountability done during these visits. That the scale is done to monitor not only weight loss but the body composition during medication management and healthy lifestyle changes. We discussed that if the patient is unable at times to financially afford this scale that we would rather waive the fee and have the scale done than have the patient not have the scale obtained. Will follow up with the patient in 4 weeks time to monitor weight loss. Total time was 30 min, greater than 50 % of time was spent on care coordination Case discussed with collaborating physician Ignacio Liu who reviewed the assessment and plan. Chart, medications, labs, vital signs reviewed. Dictation was accomplished with the use of [employer] voice recognition software, prone to medical misidentifications and grammatical errors. This is unintentional and the practitioner does try to identify and correct these, but some could still be present. Please do not hesitate to contact practitioner for clarification. All questions answered to patients satisfaction. Patient verbalized understanding of diagnosis and treatments explained. To call sooner prior to next visit it any questions/concerns arise. 09/12/2023 Other obesity due to excess calories (ICD-10 - E66.09) 10/20/2023 Other obesity due to excess calories (ICD-10 - E66.09) #Obesity. 10/20/23: 146.4 lbs, BMI 26.6. She is doing well on Zepp bound 12.5. Will continue current regimen. She is continue to work on building muscle mass. Continue increased protein intake, hydration and regular exercise with increased weight lifting. Follow-up 4 to 6 weeks sooner with any concerns. 08/31/23: 153 lbs. BMI 27.8. She is doing fantastic on Zepbound 10 mg. Will continue current regimen. KEYONA injection also given today. She is getting close to her goal and will continue to work on building muscle mass. Continue increased protein intake, hydration and regular exercise. Will follow-up in 6 weeks sooner with any concerns. 08/01/23: 156.9 lbs, BMI 28.5 She is doing well on Zepbound. KEYONA given today. Currently on Zepbound 10 mg. 06/29/23: 162 lbs, BMI 29.36: Zepbound 7.5 mg 06/01/23: 168.76, BMI 30.9 She is doing well on Zepbound with first dose at 5 mg yesterday. 05/04/23: Weight 170.75 pounds, BMI 31.2. Zepbound 2.5 mg #Endometriosis- S/p hysterectomy, left ovary remains. Currently on estradiol. Managed by PCP and POLYSOM TECH. The patient will continue exercise regimen with an emphasis on improving/increasing steps to at least 6,000-10,000 steps per day. Increasing cardio and strength training exercises as tolerated to improve weight loss and work on building muscle mass. Patient is committed to smarter eating with calorie counting and mindful eating. Limiting processed foods and carbohydrates and increasing leafy greens and lean proteins as well as fruits into their diet. Patient was counseled on the importance of eating local, organic food when possible. Patient has been counseled regarding effects of GLP/GIP-1 agonists and other FDA approved weight loss medications with regards to a multifactorial approach of weight loss as mentioned above and that the medication alone will not be sufficient to meet patients goals. We discussed holistic medication approach with emphasis on lifestyle modification. Discussed obesity as it increases risk of diabetes, cardiovascular disease, and/or organ damage. We spent a lot of time discussing the relationship between food, exercise, sleep, mental health, and obesity. We discussed the importance of having SECAs done every visit and having accountability done during these visits. That the scale is done to monitor not only weight loss but the body composition during medication management and healthy lifestyle changes. We discussed that if the patient is unable at times to financially afford this scale that we would rather waive the fee and have the scale done than have the patient not have the scale obtained. Will follow up with the patient in 4 weeks time to monitor weight loss. Total time was 30 min, greater than 50 % of time was spent on care coordination Case discussed with collaborating physician Ignacio Liu who reviewed the assessment and plan. Chart, medications, labs, vital signs reviewed. Dictation was accomplished with the use of [employer] voice recognition software, prone to medical misidentifications and grammatical errors. This is unintentional and the practitioner does try to identify and correct these, but some could still be present. Please do not hesitate to contact practitioner for clarification. All questions answered to patients satisfaction. Patient verbalized understanding of diagnosis and treatments explained. To call sooner prior to next visit it any questions/concerns arise. 10/20/2023 BMI 27.0-27.9,adult (ICD-10 - Z68.27) #Obesity. 10/20/23: 146.4 lbs, BMI 26.6. She is doing well on [place] bound 12.5. Will continue current regimen. She is continue to work on building muscle mass. Continue increased protein intake, hydration and regular exercise with increased weight lifting. Follow-up 4 to 6 weeks sooner with any concerns. 08/31/23: 153 lbs. BMI 27.8. She is doing fantastic on Zepbound 10 mg. Will continue current regimen. KEYONA injection also given today. She is getting close to her goal and will continue to work on building muscle mass. Continue increased protein intake, hydration and regular exercise. Will follow-up in 6 weeks sooner with any concerns. 08/01/23: 156.9 lbs, BMI 28.5 She is doing well on Zepbound. KEYONA given today. Currently on Zepbound 10 mg. 06/29/23: 162 lbs, BMI 29.36: Zepbound 7.5 mg 06/01/23: 168.76, BMI 30.9 She is doing well on Zepbound with first dose at 5 mg yesterday. 05/04/23: Weight 170.75 pounds, BMI 31.2. Zepbound 2.5 mg #Endometriosis- S/p hysterectomy, left ovary remains. Currently on estradiol. Managed by PCP and [employer]. The patient will continue exercise regimen with an emphasis on improving/increasing steps to at least 6,000-10,000 steps per day. Increasing cardio and strength training exercises as tolerated to improve weight loss and work on building muscle mass. Patient is committed to smarter eating with calorie counting and mindful eating. Limiting processed foods and carbohydrates and increasing leafy greens and lean proteins as well as fruits into their diet. Patient was counseled on the importance of eating local, organic food when possible. Patient has been counseled regarding effects of GLP/GIP-1 agonists and other FDA approved weight loss medications with regards to a multifactorial approach of weight loss as mentioned above and that the medication alone will not be sufficient to meet patients goals. We discussed holistic medication approach with emphasis on lifestyle modification. Discussed obesity as it increases risk of diabetes, cardiovascular disease, and/or organ damage. We spent a lot of time discussing the relationship between food, exercise, sleep, mental health, and obesity. We discussed the importance of having SECAs done every visit and having accountability done during these visits. That the scale is done to monitor not only weight loss but the body composition during medication management and healthy lifestyle changes. We discussed that if the patient is unable at times to financially afford this scale that we would rather waive the fee and have the scale done than have the patient not have the scale obtained. Will follow up with the patient in 4 weeks time to monitor weight loss. Total time was 30 min, greater than 50 % of time was spent on care coordination Case discussed with collaborating physician Ignacio Liu who reviewed the assessment and plan. Chart, medications, labs, vital signs reviewed. Dictation was accomplished with the use of [employer] voice recognition software, prone to medical misidentifications and grammatical errors. This is unintentional and the practitioner does try to identify and correct these, but some could still be present. Please do not hesitate to contact practitioner for clarification. All questions answered to patients satisfaction. Patient verbalized understanding of diagnosis and treatments explained. To call sooner prior to next visit it any questions/concerns arise. 12/27/2023 Other obesity due to excess calories (ICD-10 - E66.09) #Obesity. 12/27/23: 144.8 pounds, BMI 26.3. She has done fantastic on Zepbound. She has been on 12.5 mg as the 10 mg was not available. Will resubmit 10 mg dose as she is now in the maintenance phase. Will continue regular exercise including weightlifting and increase protein in diet. KEYONA injection given today. Plan to follow-up in 6 weeks sooner with any concerns. 10/20/23: 146.4 lbs, BMI 26.6. She is doing well on Zepp bound 12.5. KEYONA injection also given today. 08/01/23: 156.9 lbs, BMI 28.5 She is doing well on Zepbound. KEYONA given today. Currently on Zepbound 10 mg. 06/29/23: 162 lbs, BMI 29.36: Zepbound 7.5 mg 06/01/23: 168.76, BMI 30.9 She is doing well on Zepbound with first dose at 5 mg yesterday. 05/04/23: Weight 170.75 pounds, BMI 31.2. Zepbound 2.5 mg #Endometriosis- S/p hysterectomy, left ovary remains. Currently on estradiol. Managed by PCP and [employer]. The patient will continue exercise regimen with an emphasis on improving/increasing steps to at least 6,000-10,000 steps per day. Increasing cardio and strength training exercises as tolerated to improve weight loss and work on building muscle mass. Patient is committed to smarter eating with calorie counting and mindful eating. Limiting processed foods and carbohydrates and increasing leafy greens and lean proteins as well as fruits into their diet. Patient was counseled on the importance of eating local, organic food when possible. Patient has been counseled regarding effects of GLP/GIP-1 agonists and other FDA approved weight loss medications with regards to a multifactorial approach of weight loss as mentioned above and that the medication alone will not be sufficient to meet patients goals. We discussed holistic medication approach with emphasis on lifestyle modification. Discussed obesity as it increases risk of diabetes, cardiovascular disease, and/or organ damage. We spent a lot of time discussing the relationship between food, exercise, sleep, mental health, and obesity. We discussed the importance of having SECAs done every visit and having accountability done during these visits. That the scale is done to monitor not only weight loss but the body composition during medication management and healthy lifestyle changes. We discussed that if the patient is unable at times to financially afford this scale that we would rather waive the fee and have the scale done than have the patient not have the scale obtained. Will follow up with the patient in 4 weeks time to monitor weight loss. Total time was 30 min, greater than 50 % of time was spent on care coordination Case discussed with collaborating physician Ignacio Liu who reviewed the assessment and plan. Chart, medications, labs, vital signs reviewed. Dictation was accomplished with the use of [employer] voice recognition software, prone to medical misidentifications and grammatical errors. This is unintentional and the practitioner does try to identify and correct these, but some could still be present. Please do not hesitate to contact practitioner for clarification. All questions answered to patients satisfaction. Patient verbalized understanding of diagnosis and treatments explained. To call sooner prior to next visit it any questions/concerns arise. 12/27/2023 BMI 26.0-26.9,adult (ICD-10 - Z68.26) #Obesity. 12/27/23: 144.8 pounds, BMI 26.3. She has done fantastic on Zepbound. She has been on 12.5 mg as the 10 mg was not available. Will resubmit 10 mg dose as she is now in the maintenance phase. Will continue regular exercise including weightlifting and increase protein in diet. KEYONA injection given today. Plan to follow-up in 6 weeks sooner with any concerns. 10/20/23: 146.4 lbs, BMI 26.6. She is doing well on Zepp bound 12.5. KEYONA injection also given today. 08/01/23: 156.9 lbs, BMI 28.5 She is doing well on Zepbound. KEYONA given today. Currently on Zepbound 10 mg. 06/29/23: 162 lbs, BMI 29.36: Zepbound 7.5 mg 06/01/23: 168.76, BMI 30.9 She is doing well on Zepbound with first dose at 5 mg yesterday. 05/04/23: Weight 170.75 pounds, BMI 31.2. Zepbound 2.5 mg #Endometriosis- S/p hysterectomy, left ovary remains. Currently on estradiol. Managed by PCP and [employer]. The patient will continue exercise regimen with an emphasis on improving/increasing steps to at least 6,000-10,000 steps per day. Increasing cardio and strength training exercises as tolerated to improve weight loss and work on building muscle mass. Patient is committed to smarter eating with calorie counting and mindful eating. Limiting processed foods and carbohydrates and increasing leafy greens and lean proteins as well as fruits into their diet. Patient was counseled on the importance of eating local, organic food when possible. Patient has been counseled regarding effects of GLP/GIP-1 agonists and other FDA approved weight loss medications with regards to a multifactorial approach of weight loss as mentioned above and that the medication alone will not be sufficient to meet patients goals. We discussed holistic medication approach with emphasis on lifestyle modification. Discussed obesity as it increases risk of diabetes, cardiovascular disease, and/or organ damage. We spent a lot of time discussing the relationship between food, exercise, sleep, mental health, and obesity. We discussed the importance of having SECAs done every visit and having accountability done during these visits. That the scale is done to monitor not only weight loss but the body composition during medication management and healthy lifestyle changes. We discussed that if the patient is unable at times to financially afford this scale that we would rather waive the fee and have the scale done than have the patient not have the scale obtained. Will follow up with the patient in 4 weeks time to monitor weight loss. Total time was 30 min, greater than 50 % of time was spent on care coordination Case discussed with collaborating physician Ignacio Liu who reviewed the assessment and plan. Chart, medications, labs, vital signs reviewed. Dictation was accomplished with the use of [employer] voice recognition software, prone to medical misidentifications and grammatical errors. This is unintentional and the practitioner does try to identify and correct these, but some could still be present. Please do not hesitate to contact practitioner for clarification. All questions answered to patients satisfaction. Patient verbalized understanding of diagnosis and treatments explained. To call sooner prior to next visit it any questions/concerns arise. 02/03/2024 Other obesity due to excess calories (ICD-10 - E66.09) 02/21/2024 Other obesity due to excess calories (ICD-10 - E66.09) #Obesity. 02/21/24: 144.7, BMI 26.3. She is doing fantastic on Zepbound 10 mg every 2 weeks. KEYONA injection given today. Will continue current regimen. Continue protein intake, hydration and regular exercise including weight training. Follow-up in 4 to 6 weeks. Will recheck labs and review at follow-up visit. 12/27/23: 144.8 pounds, BMI 26.3. She has done fantastic on Zepbound. She has been on 12.5 mg as the 10 mg was not available. Will resubmit 10 mg dose as she is now in the maintenance phase. Will continue regular exercise including weightlifting and increase protein in diet. KEYONA injection given today. Plan to follow-up in 6 weeks sooner with any concerns. 10/20/23: 146.4 lbs, BMI 26.6. She is doing well on Zepp bound 12.5. KEYONA injection also given today. 08/01/23: 156.9 lbs, BMI 28.5 She is doing well on Zepbound. KEYONA given today. Currently on Zepbound 10 mg. 06/29/23: 162 lbs, BMI 29.36: Zepbound 7.5 mg 06/01/23: 168.76, BMI 30.9 She is doing well on Zepbound with first dose at 5 mg yesterday. 05/04/23: Weight 170.75 pounds, BMI 31.2. Zepbound 2.5 mg #Endometriosis- S/p hysterectomy, left ovary remains. Currently on estradiol. Managed by PCP and [employer]. The patient will continue exercise regimen with an emphasis on improving/increasing steps to at least 6,000-10,000 steps per day. Increasing cardio and strength training exercises as tolerated to improve weight loss and work on building muscle mass. Patient is committed to smarter eating with calorie counting and mindful eating. Limiting processed foods and carbohydrates and increasing leafy greens and lean proteins as well as fruits into their diet. Patient was counseled on the importance of eating local, organic food when possible. Patient has been counseled regarding effects of GLP/GIP-1 agonists and other FDA approved weight loss medications with regards to a multifactorial approach of weight loss as mentioned above and that the medication alone will not be sufficient to meet patients goals. We discussed holistic medication approach with emphasis on lifestyle modification. Discussed obesity as it increases risk of diabetes, cardiovascular disease, and/or organ damage. We spent a lot of time discussing the relationship between food, exercise, sleep, mental health, and obesity. We discussed the importance of having SECAs done every visit and having accountability done during these visits. That the scale is done to monitor not only weight loss but the body composition during medication management and healthy lifestyle changes. We discussed that if the patient is unable at times to financially afford this scale that we would rather waive the fee and have the scale done than have the patient not have the scale obtained. Will follow up with the patient in 4 weeks time to monitor weight loss. Total time was 30 min, greater than 50 % of time was spent on care coordination Case discussed with collaborating physician Ignacio Liu who reviewed the assessment and plan. Chart, medications, labs, vital signs reviewed. Dictation was accomplished with the use of [employer] voice recognition software, prone to medical misidentifications and grammatical errors. This is unintentional and the practitioner does try to identify and correct these, but some could still be present. Please do not hesitate to contact practitioner for clarification. All questions answered to patients satisfaction. Patient verbalized understanding of diagnosis and treatments explained. To call sooner prior to next visit it any questions/concerns arise. 02/21/2024 BMI 26.0-26.9,adult (ICD-10 - Z68.26) #Obesity. 02/21/24: 144.7, BMI 26.3. She is doing fantastic on Zepbound 10 mg every 2 weeks. KEYONA injection given today. Will continue current regimen. Continue protein intake, hydration and regular exercise including weight training. Follow-up in 4 to 6 weeks. Will recheck labs and review at follow-up visit. 12/27/23: 144.8 pounds, BMI 26.3. She has done fantastic on Zepbound. She has been on 12.5 mg as the 10 mg was not available. Will resubmit 10 mg dose as she is now in the maintenance phase. Will continue regular exercise including weightlifting and increase protein in diet. KEYONA injection given today. Plan to follow-up in 6 weeks sooner with any concerns. 10/20/23: 146.4 lbs, BMI 26.6. She is doing well on Zepp bound 12.5. KEYONA injection also given today. 08/01/23: 156.9 lbs, BMI 28.5 She is doing well on Zepbound. KEYONA given today. Currently on Zepbound 10 mg. 06/29/23: 162 lbs, BMI 29.36: Zepbound 7.5 mg 06/01/23: 168.76, BMI 30.9 She is doing well on Zepbound with first dose at 5 mg yesterday. 05/04/23: Weight 170.75 pounds, BMI 31.2. Zepbound 2.5 mg #Endometriosis- S/p hysterectomy, left ovary remains. Currently on estradiol. Managed by PCP and [employer]. The patient will continue exercise regimen with an emphasis on improving/increasing steps to at least 6,000-10,000 steps per day. Increasing cardio and strength training exercises as tolerated to improve weight loss and work on building muscle mass. Patient is committed to smarter eating with calorie counting and mindful eating. Limiting processed foods and carbohydrates and increasing leafy greens and lean proteins as well as fruits into their diet. Patient was counseled on the importance of eating local, organic food when possible. Patient has been counseled regarding effects of GLP/GIP-1 agonists and other FDA approved weight loss medications with regards to a multifactorial approach of weight loss as mentioned above and that the medication alone will not be sufficient to meet patients goals. We discussed holistic medication approach with emphasis on lifestyle modification. Discussed obesity as it increases risk of diabetes, cardiovascular disease, and/or organ damage. We spent a lot of time discussing the relationship between food, exercise, sleep, mental health, and obesity. We discussed the importance of having SECAs done every visit and having accountability done during these visits. That the scale is done to monitor not only weight loss but the body composition during medication management and healthy lifestyle changes. We discussed that if the patient is unable at times to financially afford this scale that we would rather waive the fee and have the scale done than have the patient not have the scale obtained. Will follow up with the patient in 4 weeks time to monitor weight loss. Total time was 30 min, greater than 50 % of time was spent on care coordination Case discussed with collaborating physician Ignacio Liu who reviewed the assessment and plan. Chart, medications, labs, vital signs reviewed. Dictation was accomplished with the use of [employer] voice recognition software, prone to medical misidentifications and grammatical errors. This is unintentional and the practitioner does try to identify and correct these, but some could still be present. Please do not hesitate to contact practitioner for clarification. All questions answered to patients satisfaction. Patient verbalized understanding of diagnosis and treatments explained. To call sooner prior to next visit it any questions/concerns arise. 04/11/2024 Other obesity due to excess calories (ICD-10 - E66.09) #Obesity. 04/11/24: 147.3 pounds, BMI 26.7. She has done fantastic on Zepbound 10 mg and is currently doing it every other week. She is in maintenance at this point and is working to build more muscle mass. KEYONA injection given today. Will plan to try titrating down to 7.5 mg dose in the next month and monitor symptoms. Discussed she can take it weekly. Continue high-protein diet and regular resistance training. She has not yet done her labs but will do prior to her next visit. Follow-up in 1 month sooner with any concerns. 02/21/24: 144.7, BMI 26.3. 12/27/23: 144.8 pounds, BMI 26.3. 10/20/23: 146.4 lbs, BMI 26.6. 08/01/23: 156.9 lbs, BMI 28.5 06/29/23: 162 lbs, BMI 29.36: 06/01/23: 168.76, BMI 30.9 05/04/23: Weight 170.75 pounds, BMI 31.2. #Endometriosis- S/p hysterectomy, left ovary remains. Currently on estradiol. Managed by PCP and [employer] TE[employer]. The patient will continue exercise regimen with an emphasis on improving/increasing steps to at least 6,000-10,000 steps per day. Increasing cardio and strength training exercises as tolerated to improve weight loss and work on building muscle mass. Patient is committed to smarter eating with calorie counting and mindful eating. Limiting processed foods and carbohydrates and increasing leafy greens and lean proteins as well as fruits into their diet. Patient was counseled on the importance of eating local, organic food when possible. Patient has been counseled regarding effects of GLP/GIP-1 agonists and other FDA approved weight loss medications with regards to a multifactorial approach of weight loss as mentioned above and that the medication alone will not be sufficient to meet patients goals. We discussed holistic medication approach with emphasis on lifestyle modification. Discussed obesity as it increases risk of diabetes, cardiovascular disease, and/or organ damage. We spent a lot of time discussing the relationship between food, exercise, sleep, mental health, and obesity. We discussed the importance of having SECAs done every visit and having accountability done during these visits. That the scale is done to monitor not only weight loss but the body composition during medication management and healthy lifestyle changes. We discussed that if the patient is unable at times to financially afford this scale that we would rather waive the fee and have the scale done than have the patient not have the scale obtained. Will follow up with the patient in 4 weeks time to monitor weight loss. Total time was 30 min, greater than 50 % of time was spent on care coordination Case discussed with collaborating physician Ignacio Liu who reviewed the assessment and plan. Chart, medications, labs, vital signs reviewed. Dictation was accomplished with the use of [employer] voice recognition software, prone to medical misidentifications and grammatical errors. This is unintentional and the practitioner does try to identify and correct these, but some could still be present. Please do not hesitate to contact practitioner for clarification. All questions answered to patients satisfaction. Patient verbalized understanding of diagnosis and treatments explained. To call sooner prior to next visit it any questions/concerns arise. 04/11/2024 BMI 26.0-26.9,adult (ICD-10 - Z68.26) #Obesity. 04/11/24: 147.3 pounds, BMI 26.7. She has done fantastic on Zepbound 10 mg and is currently doing it every other week. She is in maintenance at this point and is working to build more muscle mass. KEYONA injection given today. Will plan to try titrating down to 7.5 mg dose in the next month and monitor symptoms. Discussed she can take it weekly. Continue high-protein diet and regular resistance training. She has not yet done her labs but will do prior to her next visit. Follow-up in 1 month sooner with any concerns. 02/21/24: 144.7, BMI 26.3. 12/27/23: 144.8 pounds, BMI 26.3. 10/20/23: 146.4 lbs, BMI 26.6. 08/01/23: 156.9 lbs, BMI 28.5 06/29/23: 162 lbs, BMI 29.36: 06/01/23: 168.76, BMI 30.9 05/04/23: Weight 170.75 pounds, BMI 31.2. #Endometriosis- S/p hysterectomy, left ovary remains. Currently on estradiol. Managed by PCP and [employer] TE[employer]. The patient will continue exercise regimen with an emphasis on improving/increasing steps to at least 6,000-10,000 steps per day. Increasing cardio and strength training exercises as tolerated to improve weight loss and work on building muscle mass. Patient is committed to smarter eating with calorie counting and mindful eating. Limiting processed foods and carbohydrates and increasing leafy greens and lean proteins as well as fruits into their diet. Patient was counseled on the importance of eating local, organic food when possible. Patient has been counseled regarding effects of GLP/GIP-1 agonists and other FDA approved weight loss medications with regards to a multifactorial approach of weight loss as mentioned above and that the medication alone will not be sufficient to meet patients goals. We discussed holistic medication approach with emphasis on lifestyle modification. Discussed obesity as it increases risk of diabetes, cardiovascular disease, and/or organ damage. We spent a lot of time discussing the relationship between food, exercise, sleep, mental health, and obesity. We discussed the importance of having SECAs done every visit and having accountability done during these visits. That the scale is done to monitor not only weight loss but the body composition during medication management and healthy lifestyle changes. We discussed that if the patient is unable at times to financially afford this scale that we would rather waive the fee and have the scale done than have the patient not have the scale obtained. Will follow up with the patient in 4 weeks time to monitor weight loss. Total time was 30 min, greater than 50 % of time was spent on care coordination Case discussed with collaborating physician Ignacio Liu who reviewed the assessment and plan. Chart, medications, labs, vital signs reviewed. Dictation was accomplished with the use of [employer] voice recognition software, prone to medical misidentifications and grammatical errors. This is unintentional and the practitioner does try to identify and correct these, but some could still be present. Please do not hesitate to contact practitioner for clarification. All questions answered to patients satisfaction. Patient verbalized understanding of diagnosis and treatments explained. To call sooner prior to next visit it any questions/concerns arise. 05/24/2024 BMI 25.0-25.9,adult (ICD-10 - Z68.25) #Obesity. 05/24/24: 137.6, BMI 25.0. She has done fantastic on Zepbound and just decreased from 10 mg to 7.5 mg this past week. She is in maintenance at this point and is working to build more muscle mass. KEYONA injection given today. Continue high-protein diet and regular resistance training. She has not yet done her labs but will do prior to her next visit. Follow-up in 1 month sooner with any concerns. #Endometriosis- S/p hysterectomy, left ovary remains. Currently on estradiol. Managed by PCP and [employer]. The patient will continue exercise regimen with an emphasis on improving/increasing steps to at least 6,000-10,000 steps per day. Increasing cardio and strength training exercises as tolerated to improve weight loss and work on building muscle mass. Patient is committed to smarter eating with calorie counting and mindful eating. Limiting processed foods and carbohydrates and increasing leafy greens and lean proteins as well as fruits into their diet. Patient was counseled on the importance of eating local, organic food when possible. Patient has been counseled regarding effects of GLP/GIP-1 agonists and other FDA approved weight loss medications with regards to a multifactorial approach of weight loss as mentioned above and that the medication alone will not be sufficient to meet patients goals. We discussed holistic medication approach with emphasis on lifestyle modification. Discussed obesity as it increases risk of diabetes, cardiovascular disease, and/or organ damage. We spent a lot of time discussing the relationship between food, exercise, sleep, mental health, and obesity. We discussed the importance of having SECAs done every visit and having accountability done during these visits. That the scale is done to monitor not only weight loss but the body composition during medication management and healthy lifestyle changes. We discussed that if the patient is unable at times to financially afford this scale that we would rather waive the fee and have the scale done than have the patient not have the scale obtained. Will follow up with the patient in 4 weeks time to monitor weight loss. Total time was 30 min, greater than 50 % of time was spent on care coordination Case discussed with collaborating physician Ignacio Liu who reviewed the assessment and plan. Chart, medications, labs, vital signs reviewed. Dictation was accomplished with the use of [employer] voice recognition software, prone to medical misidentifications and grammatical errors. This is unintentional and the practitioner does try to identify and correct these, but some could still be present. Please do not hesitate to contact practitioner for clarification. All questions answered to patients satisfaction. Patient verbalized understanding of diagnosis and treatments explained. To call sooner prior to next visit it any questions/concerns arise. 05/24/2024 Overweight (BMI 25.0-29.9) (ICD-10 - E66.3) #Obesity. 05/24/24: 137.6, BMI 25.0. She has done fantastic on Zepbound and just decreased from 10 mg to 7.5 mg this past week. She is in maintenance at this point and is working to build more muscle mass. KEYONA injection given today. Continue high-protein diet and regular resistance training. She has not yet done her labs but will do prior to her next visit. Follow-up in 1 month sooner with any concerns. #Endometriosis- S/p hysterectomy, left ovary remains. Currently on estradiol. Managed by PCP and [employer] TE[employer]. The patient will continue exercise regimen with an emphasis on improving/increasing steps to at least 6,000-10,000 steps per day. Increasing cardio and strength training exercises as tolerated to improve weight loss and work on building muscle mass. Patient is committed to smarter eating with calorie counting and mindful eating. Limiting processed foods and carbohydrates and increasing leafy greens and lean proteins as well as fruits into their diet. Patient was counseled on the importance of eating local, organic food when possible. Patient has been counseled regarding effects of GLP/GIP-1 agonists and other FDA approved weight loss medications with regards to a multifactorial approach of weight loss as mentioned above and that the medication alone will not be sufficient to meet patients goals. We discussed holistic medication approach with emphasis on lifestyle modification. Discussed obesity as it increases risk of diabetes, cardiovascular disease, and/or organ damage. We spent a lot of time discussing the relationship between food, exercise, sleep, mental health, and obesity. We discussed the importance of having SECAs done every visit and having accountability done during these visits. That the scale is done to monitor not only weight loss but the body composition during medication management and healthy lifestyle changes. We discussed that if the patient is unable at times to financially afford this scale that we would rather waive the fee and have the scale done than have the patient not have the scale obtained. Will follow up with the patient in 4 weeks time to monitor weight loss. Total time was 30 min, greater than 50 % of time was spent on care coordination Case discussed with collaborating physician Ignacio Liu who reviewed the assessment and plan. Chart, medications, labs, vital signs reviewed. Dictation was accomplished with the use of [employer] voice recognition software, prone to medical misidentifications and grammatical errors. This is unintentional and the practitioner does try to identify and correct these, but some could still be present. Please do not hesitate to contact practitioner for clarification. All questions answered to patients satisfaction. Patient verbalized understanding of diagnosis and treatments explained. To call sooner prior to next visit it any questions/concerns arise. 06/26/2024 BMI 25.0-25.9,adult (ICD-10 - Z68.25) #Obesity. 06/26/24: 142.2, BMI 25.8. She has done fantastic on Zepbound and currently on 7.5 mg. She is in maintenance at this point and is working to build more muscle mass. KEYONA injection given today. Weight is up 4-1/2 pounds however sat mass of 1 pound muscle down 1 pound. Contin is up a bit. She would like to repeat her SECA again in 1 week. Will schedule nurse visit. No charge. #Endometriosis- S/p hysterectomy, left ovary remains. Currently on estradiol. Managed by PCP and [employer] TE[employer]. The patient will continue exercise regimen with an emphasis on improving/increasing steps to at least 6,000-10,000 steps per day. Increasing cardio and strength training exercises as tolerated to improve weight loss and work on building muscle mass. Patient is committed to smarter eating with calorie counting and mindful eating. Limiting processed foods and carbohydrates and increasing leafy greens and lean proteins as well as fruits into their diet. Patient was counseled on the importance of eating local, organic food when possible. Patient has been counseled regarding effects of GLP/GIP-1 agonists and other FDA approved weight loss medications with regards to a multifactorial approach of weight loss as mentioned above and that the medication alone will not be sufficient to meet patients goals. We discussed holistic medication approach with emphasis on lifestyle modification. Discussed obesity as it increases risk of diabetes, cardiovascular disease, and/or organ damage. We spent a lot of time discussing the relationship between food, exercise, sleep, mental health, and obesity. We discussed the importance of having SECAs done every visit and having accountability done during these visits. That the scale is done to monitor not only weight loss but the body composition during medication management and healthy lifestyle changes. We discussed that if the patient is unable at times to financially afford this scale that we would rather waive the fee and have the scale done than have the patient not have the scale obtained. Will follow up with the patient in 4 weeks time to monitor weight loss. Total time was 30 min, greater than 50 % of time was spent on care coordination Case discussed with collaborating physician Ignacio Liu who reviewed the assessment and plan. Chart, medications, labs, vital signs reviewed. Dictation was accomplished with the use of [employer] voice recognition software, prone to medical misidentifications and grammatical errors. This is unintentional and the practitioner does try to identify and correct these, but some could still be present. Please do not hesitate to contact practitioner for clarification. All questions answered to patients satisfaction. Patient verbalized understanding of diagnosis and treatments explained. To call sooner prior to next visit it any questions/concerns arise. 06/26/2024 Overweight (BMI 25.0-29.9) (ICD-10 - E66.3) #Obesity. 06/26/24: 142.2, BMI 25.8. She has done fantastic on Zepbound and currently on 7.5 mg. She is in maintenance at this point and is working to build more muscle mass. KEYONA injection given today. Weight is up 4-1/2 pounds however sat mass of 1 pound muscle down 1 pound. Contin is up a bit. She would like to repeat her SECA again in 1 week. Will schedule nurse visit. No charge. #Endometriosis- S/p hysterectomy, left ovary remains. Currently on estradiol. Managed by PCP and [employer] TE[employer]. The patient will continue exercise regimen with an emphasis on improving/increasing steps to at least 6,000-10,000 steps per day. Increasing cardio and strength training exercises as tolerated to improve weight loss and work on building muscle mass. Patient is committed to smarter eating with calorie counting and mindful eating. Limiting processed foods and carbohydrates and increasing leafy greens and lean proteins as well as fruits into their diet. Patient was counseled on the importance of eating local, organic food when possible. Patient has been counseled regarding effects of GLP/GIP-1 agonists and other FDA approved weight loss medications with regards to a multifactorial approach of weight loss as mentioned above and that the medication alone will not be sufficient to meet patients goals. We discussed holistic medication approach with emphasis on lifestyle modification. Discussed obesity as it increases risk of diabetes, cardiovascular disease, and/or organ damage. We spent a lot of time discussing the relationship between food, exercise, sleep, mental health, and obesity. We discussed the importance of having SECAs done every visit and having accountability done during these visits. That the scale is done to monitor not only weight loss but the body composition during medication management and healthy lifestyle changes. We discussed that if the patient is unable at times to financially afford this scale that we would rather waive the fee and have the scale done than have the patient not have the scale obtained. Will follow up with the patient in 4 weeks time to monitor weight loss. Total time was 30 min, greater than 50 % of time was spent on care coordination Case discussed with collaborating physician Ignacio Liu who reviewed the assessment and plan. Chart, medications, labs, vital signs reviewed. Dictation was accomplished with the use of [employer] voice recognition software, prone to medical misidentifications and grammatical errors. This is unintentional and the practitioner does try to identify and correct these, but some could still be present. Please do not hesitate to contact practitioner for clarification. All questions answered to patients satisfaction. Patient verbalized understanding of diagnosis and treatments explained. To call sooner prior to next visit it any questions/concerns arise. 06/26/2024 Endometriosis (ICD-10 - N80.9) #Obesity. 06/26/24: 142.2, BMI 25.8. She has done fantastic on Zepbound and currently on 7.5 mg. She is in maintenance at this point and is working to build more muscle mass. KEYONA injection given today. Weight is up 4-1/2 pounds however sat mass of 1 pound muscle down 1 pound. Contin is up a bit. She would like to repeat her SECA again in 1 week. Will schedule nurse visit. No charge. #Endometriosis- S/p hysterectomy, left ovary remains. Currently on estradiol. Managed by PCP and [employer] TE[employer]. The patient will continue exercise regimen with an emphasis on improving/increasing steps to at least 6,000-10,000 steps per day. Increasing cardio and strength training exercises as tolerated to improve weight loss and work on building muscle mass. Patient is committed to smarter eating with calorie counting and mindful eating. Limiting processed foods and carbohydrates and increasing leafy greens and lean proteins as well as fruits into their diet. Patient was counseled on the importance of eating local, organic food when possible. Patient has been counseled regarding effects of GLP/GIP-1 agonists and other FDA approved weight loss medications with regards to a multifactorial approach of weight loss as mentioned above and that the medication alone will not be sufficient to meet patients goals. We discussed holistic medication approach with emphasis on lifestyle modification. Discussed obesity as it increases risk of diabetes, cardiovascular disease, and/or organ damage. We spent a lot of time discussing the relationship between food, exercise, sleep, mental health, and obesity. We discussed the importance of having SECAs done every visit and having accountability done during these visits. That the scale is done to monitor not only weight loss but the body composition during medication management and healthy lifestyle changes. We discussed that if the patient is unable at times to financially afford this scale that we would rather waive the fee and have the scale done than have the patient not have the scale obtained. Will follow up with the patient in 4 weeks time to monitor weight loss. Total time was 30 min, greater than 50 % of time was spent on care coordination Case discussed with collaborating physician Ignacio Liu who reviewed the assessment and plan. Chart, medications, labs, vital signs reviewed. Dictation was accomplished with the use of [employer] voice recognition software, prone to medical misidentifications and grammatical errors. This is unintentional and the practitioner does try to identify and correct these, but some could still be present. Please do not hesitate to contact practitioner for clarification. All questions answered to patients satisfaction. Patient verbalized understanding of diagnosis and treatments explained. To call sooner prior to next visit it any questions/concerns arise. 05/24/2024 Endometriosis (ICD-10 - N80.9) #Obesity. 05/24/24: 137.6, BMI 25.0. She has done fantastic on Zepbound and just decreased from 10 mg to 7.5 mg this past week. She is in maintenance at this point and is working to build more muscle mass. KEYONA injection given today. Continue high-protein diet and regular resistance training. She has not yet done her labs but will do prior to her next visit. Follow-up in 1 month sooner with any concerns. #Endometriosis- S/p hysterectomy, left ovary remains. Currently on estradiol. Managed by PCP and [employer] TE[employer]. The patient will continue exercise regimen with an emphasis on improving/increasing steps to at least 6,000-10,000 steps per day. Increasing cardio and strength training exercises as tolerated to improve weight loss and work on building muscle mass. Patient is committed to smarter eating with calorie counting and mindful eating. Limiting processed foods and carbohydrates and increasing leafy greens and lean proteins as well as fruits into their diet. Patient was counseled on the importance of eating local, organic food when possible. Patient has been counseled regarding effects of GLP/GIP-1 agonists and other FDA approved weight loss medications with regards to a multifactorial approach of weight loss as mentioned above and that the medication alone will not be sufficient to meet patients goals. We discussed holistic medication approach with emphasis on lifestyle modification. Discussed obesity as it increases risk of diabetes, cardiovascular disease, and/or organ damage. We spent a lot of time discussing the relationship between food, exercise, sleep, mental health, and obesity. We discussed the importance of having SECAs done every visit and having accountability done during these visits. That the scale is done to monitor not only weight loss but the body composition during medication management and healthy lifestyle changes. We discussed that if the patient is unable at times to financially afford this scale that we would rather waive the fee and have the scale done than have the patient not have the scale obtained. Will follow up with the patient in 4 weeks time to monitor weight loss. Total time was 30 min, greater than 50 % of time was spent on care coordination Case discussed with collaborating physician Ignacio Liu who reviewed the assessment and plan. Chart, medications, labs, vital signs reviewed. Dictation was accomplished with the use of [employer] voice recognition software, prone to medical misidentifications and grammatical errors. This is unintentional and the practitioner does try to identify and correct these, but some could still be present. Please do not hesitate to contact practitioner for clarification. All questions answered to patients satisfaction. Patient verbalized understanding of diagnosis and treatments explained. To call sooner prior to next visit it any questions/concerns arise. 04/11/2024 Endometriosis (ICD-10 - N80.9) #Obesity. 04/11/24: 147.3 pounds, BMI 26.7. She has done fantastic on Zepbound 10 mg and is currently doing it every other week. She is in maintenance at this point and is working to build more muscle mass. KEYONA injection given today. Will plan to try titrating down to 7.5 mg dose in the next month and monitor symptoms. Discussed she can take it weekly. Continue high-protein diet and regular resistance training. She has not yet done her labs but will do prior to her next visit. Follow-up in 1 month sooner with any concerns. 02/21/24: 144.7, BMI 26.3. 12/27/23: 144.8 pounds, BMI 26.3. 10/20/23: 146.4 lbs, BMI 26.6. 08/01/23: 156.9 lbs, BMI 28.5 06/29/23: 162 lbs, BMI 29.36: 06/01/23: 168.76, BMI 30.9 05/04/23: Weight 170.75 pounds, BMI 31.2. #Endometriosis- S/p hysterectomy, left ovary remains. Currently on estradiol. Managed by PCP and [employer] TECH. The patient will continue exercise regimen with an emphasis on improving/increasing steps to at least 6,000-10,000 steps per day. Increasing cardio and strength training exercises as tolerated to improve weight loss and work on building muscle mass. Patient is committed to smarter eating with calorie counting and mindful eating. Limiting processed foods and carbohydrates and increasing leafy greens and lean proteins as well as fruits into their diet. Patient was counseled on the importance of eating local, organic food when possible. Patient has been counseled regarding effects of GLP/GIP-1 agonists and other FDA approved weight loss medications with regards to a multifactorial approach of weight loss as mentioned above and that the medication alone will not be sufficient to meet patients goals. We discussed holistic medication approach with emphasis on lifestyle modification. Discussed obesity as it increases risk of diabetes, cardiovascular disease, and/or organ damage. We spent a lot of time discussing the relationship between food, exercise, sleep, mental health, and obesity. We discussed the importance of having SECAs done every visit and having accountability done during these visits. That the scale is done to monitor not only weight loss but the body composition during medication management and healthy lifestyle changes. We discussed that if the patient is unable at times to financially afford this scale that we would rather waive the fee and have the scale done than have the patient not have the scale obtained. Will follow up with the patient in 4 weeks time to monitor weight loss. Total time was 30 min, greater than 50 % of time was spent on care coordination Case discussed with collaborating physician Ignacio Liu who reviewed the assessment and plan. Chart, medications, labs, vital signs reviewed. Dictation was accomplished with the use of [employer] voice recognition software, prone to medical misidentifications and grammatical errors. This is unintentional and the practitioner does try to identify and correct these, but some could still be present. Please do not hesitate to contact practitioner for clarification. All questions answered to patients satisfaction. Patient verbalized understanding of diagnosis and treatments explained. To call sooner prior to next visit it any questions/concerns arise. 02/21/2024 Endometriosis (ICD-10 - N80.9) #Obesity. 02/21/24: 144.7, BMI 26.3. She is doing fantastic on Zepbound 10 mg every 2 weeks. KEYONA injection given today. Will continue current regimen. Continue protein intake, hydration and regular exercise including weight training. Follow-up in 4 to 6 weeks. Will recheck labs and review at follow-up visit. 12/27/23: 144.8 pounds, BMI 26.3. She has done fantastic on Zepbound. She has been on 12.5 mg as the 10 mg was not available. Will resubmit 10 mg dose as she is now in the maintenance phase. Will continue regular exercise including weightlifting and increase protein in diet. KEYONA injection given today. Plan to follow-up in 6 weeks sooner with any concerns. 10/20/23: 146.4 lbs, BMI 26.6. She is doing well on [place] bound 12.5. KEYONA injection also given today. 08/01/23: 156.9 lbs, BMI 28.5 She is doing well on Zepbound. KEYONA given today. Currently on Zepbound 10 mg. 06/29/23: 162 lbs, BMI 29.36: Zepbound 7.5 mg 06/01/23: 168.76, BMI 30.9 She is doing well on Zepbound with first dose at 5 mg yesterday. 05/04/23: Weight 170.75 pounds, BMI 31.2. Zepbound 2.5 mg #Endometriosis- S/p hysterectomy, left ovary remains. Currently on estradiol. Managed by PCP and [employer] TE[employer]. The patient will continue exercise regimen with an emphasis on improving/increasing steps to at least 6,000-10,000 steps per day. Increasing cardio and strength training exercises as tolerated to improve weight loss and work on building muscle mass. Patient is committed to smarter eating with calorie counting and mindful eating. Limiting processed foods and carbohydrates and increasing leafy greens and lean proteins as well as fruits into their diet. Patient was counseled on the importance of eating local, organic food when possible. Patient has been counseled regarding effects of GLP/GIP-1 agonists and other FDA approved weight loss medications with regards to a multifactorial approach of weight loss as mentioned above and that the medication alone will not be sufficient to meet patients goals. We discussed holistic medication approach with emphasis on lifestyle modification. Discussed obesity as it increases risk of diabetes, cardiovascular disease, and/or organ damage. We spent a lot of time discussing the relationship between food, exercise, sleep, mental health, and obesity. We discussed the importance of having SECAs done every visit and having accountability done during these visits. That the scale is done to monitor not only weight loss but the body composition during medication management and healthy lifestyle changes. We discussed that if the patient is unable at times to financially afford this scale that we would rather waive the fee and have the scale done than have the patient not have the scale obtained. Will follow up with the patient in 4 weeks time to monitor weight loss. Total time was 30 min, greater than 50 % of time was spent on care coordination Case discussed with collaborating physician Ignacio Liu who reviewed the assessment and plan. Chart, medications, labs, vital signs reviewed. Dictation was accomplished with the use of [employer] voice recognition software, prone to medical misidentifications and grammatical errors. This is unintentional and the practitioner does try to identify and correct these, but some could still be present. Please do not hesitate to contact practitioner for clarification. All questions answered to patients satisfaction. Patient verbalized understanding of diagnosis and treatments explained. To call sooner prior to next visit it any questions/concerns arise. 12/27/2023 Endometriosis (ICD-10 - N80.9) #Obesity. 12/27/23: 144.8 pounds, BMI 26.3. She has done fantastic on Zepbound. She has been on 12.5 mg as the 10 mg was not available. Will resubmit 10 mg dose as she is now in the maintenance phase. Will continue regular exercise including weightlifting and increase protein in diet. KEYONA injection given today. Plan to follow-up in 6 weeks sooner with any concerns. 10/20/23: 146.4 lbs, BMI 26.6. She is doing well on Ze[place] bound 12.5. KEYONA injection also given today. 08/01/23: 156.9 lbs, BMI 28.5 She is doing well on Zepbound. KEYONA given today. Currently on Zepbound 10 mg. 06/29/23: 162 lbs, BMI 29.36: Zepbound 7.5 mg 06/01/23: 168.76, BMI 30.9 She is doing well on Zepbound with first dose at 5 mg yesterday. 05/04/23: Weight 170.75 pounds, BMI 31.2. Zepbound 2.5 mg #Endometriosis- S/p hysterectomy, left ovary remains. Currently on estradiol. Managed by PCP and [employer]. The patient will continue exercise regimen with an emphasis on improving/increasing steps to at least 6,000-10,000 steps per day. Increasing cardio and strength training exercises as tolerated to improve weight loss and work on building muscle mass. Patient is committed to smarter eating with calorie counting and mindful eating. Limiting processed foods and carbohydrates and increasing leafy greens and lean proteins as well as fruits into their diet. Patient was counseled on the importance of eating local, organic food when possible. Patient has been counseled regarding effects of GLP/GIP-1 agonists and other FDA approved weight loss medications with regards to a multifactorial approach of weight loss as mentioned above and that the medication alone will not be sufficient to meet patients goals. We discussed holistic medication approach with emphasis on lifestyle modification. Discussed obesity as it increases risk of diabetes, cardiovascular disease, and/or organ damage. We spent a lot of time discussing the relationship between food, exercise, sleep, mental health, and obesity. We discussed the importance of having SECAs done every visit and having accountability done during these visits. That the scale is done to monitor not only weight loss but the body composition during medication management and healthy lifestyle changes. We discussed that if the patient is unable at times to financially afford this scale that we would rather waive the fee and have the scale done than have the patient not have the scale obtained. Will follow up with the patient in 4 weeks time to monitor weight loss. Total time was 30 min, greater than 50 % of time was spent on care coordination Case discussed with collaborating physician Ignacio Liu who reviewed the assessment and plan. Chart, medications, labs, vital signs reviewed. Dictation was accomplished with the use of [employer] voice recognition software, prone to medical misidentifications and grammatical errors. This is unintentional and the practitioner does try to identify and correct these, but some could still be present. Please do not hesitate to contact practitioner for clarification. All questions answered to patients satisfaction. Patient verbalized understanding of diagnosis and treatments explained. To call sooner prior to next visit it any questions/concerns arise. 10/20/2023 Endometriosis (ICD-10 - N80.9) #Obesity. 10/20/23: 146.4 lbs, BMI 26.6. She is doing well on Zepp bound 12.5. Will continue current regimen. She is continue to work on building muscle mass. Continue increased protein intake, hydration and regular exercise with increased weight lifting. Follow-up 4 to 6 weeks sooner with any concerns. 08/31/23: 153 lbs. BMI 27.8. She is doing fantastic on Zepbound 10 mg. Will continue current regimen. KEYONA injection also given today. She is getting close to her goal and will continue to work on building muscle mass. Continue increased protein intake, hydration and regular exercise. Will follow-up in 6 weeks sooner with any concerns. 08/01/23: 156.9 lbs, BMI 28.5 She is doing well on Zepbound. KEYONA given today. Currently on Zepbound 10 mg. 06/29/23: 162 lbs, BMI 29.36: Zepbound 7.5 mg 06/01/23: 168.76, BMI 30.9 She is doing well on Zepbound with first dose at 5 mg yesterday. 05/04/23: Weight 170.75 pounds, BMI 31.2. Zepbound 2.5 mg #Endometriosis- S/p hysterectomy, left ovary remains. Currently on estradiol. Managed by PCP and [employer]. The patient will continue exercise regimen with an emphasis on improving/increasing steps to at least 6,000-10,000 steps per day. Increasing cardio and strength training exercises as tolerated to improve weight loss and work on building muscle mass. Patient is committed to smarter eating with calorie counting and mindful eating. Limiting processed foods and carbohydrates and increasing leafy greens and lean proteins as well as fruits into their diet. Patient was counseled on the importance of eating local, organic food when possible. Patient has been counseled regarding effects of GLP/GIP-1 agonists and other FDA approved weight loss medications with regards to a multifactorial approach of weight loss as mentioned above and that the medication alone will not be sufficient to meet patients goals. We discussed holistic medication approach with emphasis on lifestyle modification. Discussed obesity as it increases risk of diabetes, cardiovascular disease, and/or organ damage. We spent a lot of time discussing the relationship between food, exercise, sleep, mental health, and obesity. We discussed the importance of having SECAs done every visit and having accountability done during these visits. That the scale is done to monitor not only weight loss but the body composition during medication management and healthy lifestyle changes. We discussed that if the patient is unable at times to financially afford this scale that we would rather waive the fee and have the scale done than have the patient not have the scale obtained. Will follow up with the patient in 4 weeks time to monitor weight loss. Total time was 30 min, greater than 50 % of time was spent on care coordination Case discussed with collaborating physician Ignacio Liu who reviewed the assessment and plan. Chart, medications, labs, vital signs reviewed. Dictation was accomplished with the use of [employer] voice recognition software, prone to medical misidentifications and grammatical errors. This is unintentional and the practitioner does try to identify and correct these, but some could still be present. Please do not hesitate to contact practitioner for clarification. All questions answered to patients satisfaction. Patient verbalized understanding of diagnosis and treatments explained. To call sooner prior to next visit it any questions/concerns arise. 08/31/2023 Endometriosis (ICD-10 - N80.9) #Obesity. 08/31/23: 153 lbs. BMI 27.8. She is doing fantastic on Zepbound 10 mg. Will continue current regimen. KEYONA injection also given today. She is getting close to her goal and will continue to work on building muscle mass. Continue increased protein intake, hydration and regular exercise. Will follow-up in 6 weeks sooner with any concerns. 08/01/23: 156.9 lbs, BMI 28.5 She is doing well on Zepbound. KEYONA given today. Currently on Zepbound 10 mg. 06/29/23: 162 lbs, BMI 29.36: Zepbound 7.5 mg 06/01/23: 168.76, BMI 30.9 She is doing well on Zepbound with first dose at 5 mg yesterday. 05/04/23: Weight 170.75 pounds, BMI 31.2. Zepbound 2.5 mg #Endometriosis- S/p hysterectomy, left ovary remains. Currently on estradiol. Managed by PCP and [employer]. The patient will continue exercise regimen with an emphasis on improving/increasing steps to at least 6,000-10,000 steps per day. Increasing cardio and strength training exercises as tolerated to improve weight loss and work on building muscle mass. Patient is committed to smarter eating with calorie counting and mindful eating. Limiting processed foods and carbohydrates and increasing leafy greens and lean proteins as well as fruits into their diet. Patient was counseled on the importance of eating local, organic food when possible. Patient has been counseled regarding effects of GLP/GIP-1 agonists and other FDA approved weight loss medications with regards to a multifactorial approach of weight loss as mentioned above and that the medication alone will not be sufficient to meet patients goals. We discussed holistic medication approach with emphasis on lifestyle modification. Discussed obesity as it increases risk of diabetes, cardiovascular disease, and/or organ damage. We spent a lot of time discussing the relationship between food, exercise, sleep, mental health, and obesity. We discussed the importance of having SECAs done every visit and having accountability done during these visits. That the scale is done to monitor not only weight loss but the body composition during medication management and healthy lifestyle changes. We discussed that if the patient is unable at times to financially afford this scale that we would rather waive the fee and have the scale done than have the patient not have the scale obtained. Will follow up with the patient in 4 weeks time to monitor weight loss. Total time was 30 min, greater than 50 % of time was spent on care coordination Case discussed with collaborating physician Ignacio Liu who reviewed the assessment and plan. Chart, medications, labs, vital signs reviewed. Dictation was accomplished with the use of [employer] voice recognition software, prone to medical misidentifications and grammatical errors. This is unintentional and the practitioner does try to identify and correct these, but some could still be present. Please do not hesitate to contact practitioner for clarification. All questions answered to patients satisfaction. Patient verbalized understanding of diagnosis and treatments explained. To call sooner prior to next visit it any questions/concerns arise. 08/01/2023 Endometriosis (ICD-10 - N80.9) #Obesity. 08/01/23: 156.9 lbs, BMI 28.5 She is doing well on Zepbound. KEYONA given today. Currently on Zepbound 10 mg. Down another 5 lbs. Discussed continuing to work on muslce mass with consistent protein intake and resistance training. Continue current regimen. Follow up in 4 weeks, sooner with any concerns. 06/29/23: 162 lbs, BMI 29.36: Zepbound 7.5 mg 06/01/23: 168.76, BMI 30.9 She is doing well on Zepbound with first dose at 5 mg yesterday. 05/04/23: Weight 170.75 pounds, BMI 31.2. Zepbound 2.5 mg #Endometriosis- S/p hysterectomy, left ovary remains. Currently on estradiol. Managed by PCP and [employer]. The patient will continue exercise regimen with an emphasis on improving/increasing steps to at least 6,000-10,000 steps per day. Increasing cardio and strength training exercises as tolerated to improve weight loss and work on building muscle mass. Patient is committed to smarter eating with calorie counting and mindful eating. Limiting processed foods and carbohydrates and increasing leafy greens and lean proteins as well as fruits into their diet. Patient was counseled on the importance of eating local, organic food when possible. Patient has been counseled regarding effects of GLP/GIP-1 agonists and other FDA approved weight loss medications with regards to a multifactorial approach of weight loss as mentioned above and that the medication alone will not be sufficient to meet patients goals. We discussed holistic medication approach with emphasis on lifestyle modification. Discussed obesity as it increases risk of diabetes, cardiovascular disease, and/or organ damage. We spent a lot of time discussing the relationship between food, exercise, sleep, mental health, and obesity. We discussed the importance of having SECAs done every visit and having accountability done during these visits. That the scale is done to monitor not only weight loss but the body composition during medication management and healthy lifestyle changes. We discussed that if the patient is unable at times to financially afford this scale that we would rather waive the fee and have the scale done than have the patient not have the scale obtained. Will follow up with the patient in 4 weeks time to monitor weight loss. Total time was 30 min, greater than 50 % of time was spent on care coordination Case discussed with collaborating physician Ignacio Liu who reviewed the assessment and plan. Chart, medications, labs, vital signs reviewed. Dictation was accomplished with the use of [employer] voice recognition software, prone to medical misidentifications and grammatical errors. This is unintentional and the practitioner does try to identify and correct these, but some could still be present. Please do not hesitate to contact practitioner for clarification. All questions answered to patients satisfaction. Patient verbalized understanding of diagnosis and treatments explained. To call sooner prior to next visit it any questions/concerns arise. 08/01/2023 Weight loss counseling, encounter for (ICD-10 - Z71.3) #Obesity. 08/01/23: 156.9 lbs, BMI 28.5 She is doing well on Zepbound. KEYONA given today. Currently on Zepbound 10 mg. Down another 5 lbs. Discussed continuing to work on muslce mass with consistent protein intake and resistance training. Continue current regimen. Follow up in 4 weeks, sooner with any concerns. 06/29/23: 162 lbs, BMI 29.36: Zepbound 7.5 mg 06/01/23: 168.76, BMI 30.9 She is doing well on Zepbound with first dose at 5 mg yesterday. 05/04/23: Weight 170.75 pounds, BMI 31.2. Zepbound 2.5 mg #Endometriosis- S/p hysterectomy, left ovary remains. Currently on estradiol. Managed by PCP and [employer] TE[employer]. The patient will continue exercise regimen with an emphasis on improving/increasing steps to at least 6,000-10,000 steps per day. Increasing cardio and strength training exercises as tolerated to improve weight loss and work on building muscle mass. Patient is committed to smarter eating with calorie counting and mindful eating. Limiting processed foods and carbohydrates and increasing leafy greens and lean proteins as well as fruits into their diet. Patient was counseled on the importance of eating local, organic food when possible. Patient has been counseled regarding effects of GLP/GIP-1 agonists and other FDA approved weight loss medications with regards to a multifactorial approach of weight loss as mentioned above and that the medication alone will not be sufficient to meet patients goals. We discussed holistic medication approach with emphasis on lifestyle modification. Discussed obesity as it increases risk of diabetes, cardiovascular disease, and/or organ damage. We spent a lot of time discussing the relationship between food, exercise, sleep, mental health, and obesity. We discussed the importance of having SECAs done every visit and having accountability done during these visits. That the scale is done to monitor not only weight loss but the body composition during medication management and healthy lifestyle changes. We discussed that if the patient is unable at times to financially afford this scale that we would rather waive the fee and have the scale done than have the patient not have the scale obtained. Will follow up with the patient in 4 weeks time to monitor weight loss. Total time was 30 min, greater than 50 % of time was spent on care coordination Case discussed with collaborating physician Ignacio Liu who reviewed the assessment and plan. Chart, medications, labs, vital signs reviewed. Dictation was accomplished with the use of [employer] voice recognition software, prone to medical misidentifications and grammatical errors. This is unintentional and the practitioner does try to identify and correct these, but some could still be present. Please do not hesitate to contact practitioner for clarification. All questions answered to patients satisfaction. Patient verbalized understanding of diagnosis and treatments explained. To call sooner prior to next visit it any questions/concerns arise. 08/31/2023 Weight loss counseling, encounter for (ICD-10 - Z71.3) #Obesity. 08/31/23: 153 lbs. BMI 27.8. She is doing fantastic on Zepbound 10 mg. Will continue current regimen. KEYONA injection also given today. She is getting close to her goal and will continue to work on building muscle mass. Continue increased protein intake, hydration and regular exercise. Will follow-up in 6 weeks sooner with any concerns. 08/01/23: 156.9 lbs, BMI 28.5 She is doing well on Zepbound. KEYONA given today. Currently on Zepbound 10 mg. 06/29/23: 162 lbs, BMI 29.36: Zepbound 7.5 mg 06/01/23: 168.76, BMI 30.9 She is doing well on Zepbound with first dose at 5 mg yesterday. 05/04/23: Weight 170.75 pounds, BMI 31.2. Zepbound 2.5 mg #Endometriosis- S/p hysterectomy, left ovary remains. Currently on estradiol. Managed by PCP and [employer] TE[employer]. The patient will continue exercise regimen with an emphasis on improving/increasing steps to at least 6,000-10,000 steps per day. Increasing cardio and strength training exercises as tolerated to improve weight loss and work on building muscle mass. Patient is committed to smarter eating with calorie counting and mindful eating. Limiting processed foods and carbohydrates and increasing leafy greens and lean proteins as well as fruits into their diet. Patient was counseled on the importance of eating local, organic food when possible. Patient has been counseled regarding effects of GLP/GIP-1 agonists and other FDA approved weight loss medications with regards to a multifactorial approach of weight loss as mentioned above and that the medication alone will not be sufficient to meet patients goals. We discussed holistic medication approach with emphasis on lifestyle modification. Discussed obesity as it increases risk of diabetes, cardiovascular disease, and/or organ damage. We spent a lot of time discussing the relationship between food, exercise, sleep, mental health, and obesity. We discussed the importance of having SECAs done every visit and having accountability done during these visits. That the scale is done to monitor not only weight loss but the body composition during medication management and healthy lifestyle changes. We discussed that if the patient is unable at times to financially afford this scale that we would rather waive the fee and have the scale done than have the patient not have the scale obtained. Will follow up with the patient in 4 weeks time to monitor weight loss. Total time was 30 min, greater than 50 % of time was spent on care coordination Case discussed with collaborating physician Ignacio Liu who reviewed the assessment and plan. Chart, medications, labs, vital signs reviewed. Dictation was accomplished with the use of [employer] voice recognition software, prone to medical misidentifications and grammatical errors. This is unintentional and the practitioner does try to identify and correct these, but some could still be present. Please do not hesitate to contact practitioner for clarification. All questions answered to patients satisfaction. Patient verbalized understanding of diagnosis and treatments explained. To call sooner prior to next visit it any questions/concerns arise. 10/20/2023 Weight loss counseling, encounter for (ICD-10 - Z71.3) #Obesity. 10/20/23: 146.4 lbs, BMI 26.6. She is doing well on Zepp bound 12.5. Will continue current regimen. She is continue to work on building muscle mass. Continue increased protein intake, hydration and regular exercise with increased weight lifting. Follow-up 4 to 6 weeks sooner with any concerns. 08/31/23: 153 lbs. BMI 27.8. She is doing fantastic on Zepbound 10 mg. Will continue current regimen. KEYONA injection also given today. She is getting close to her goal and will continue to work on building muscle mass. Continue increased protein intake, hydration and regular exercise. Will follow-up in 6 weeks sooner with any concerns. 08/01/23: 156.9 lbs, BMI 28.5 She is doing well on Zepbound. KEYONA given today. Currently on Zepbound 10 mg. 06/29/23: 162 lbs, BMI 29.36: Zepbound 7.5 mg 06/01/23: 168.76, BMI 30.9 She is doing well on Zepbound with first dose at 5 mg yesterday. 05/04/23: Weight 170.75 pounds, BMI 31.2. Zepbound 2.5 mg #Endometriosis- S/p hysterectomy, left ovary remains. Currently on estradiol. Managed by PCP and [employer] TE[employer]. The patient will continue exercise regimen with an emphasis on improving/increasing steps to at least 6,000-10,000 steps per day. Increasing cardio and strength training exercises as tolerated to improve weight loss and work on building muscle mass. Patient is committed to smarter eating with calorie counting and mindful eating. Limiting processed foods and carbohydrates and increasing leafy greens and lean proteins as well as fruits into their diet. Patient was counseled on the importance of eating local, organic food when possible. Patient has been counseled regarding effects of GLP/GIP-1 agonists and other FDA approved weight loss medications with regards to a multifactorial approach of weight loss as mentioned above and that the medication alone will not be sufficient to meet patients goals. We discussed holistic medication approach with emphasis on lifestyle modification. Discussed obesity as it increases risk of diabetes, cardiovascular disease, and/or organ damage. We spent a lot of time discussing the relationship between food, exercise, sleep, mental health, and obesity. We discussed the importance of having SECAs done every visit and having accountability done during these visits. That the scale is done to monitor not only weight loss but the body composition during medication management and healthy lifestyle changes. We discussed that if the patient is unable at times to financially afford this scale that we would rather waive the fee and have the scale done than have the patient not have the scale obtained. Will follow up with the patient in 4 weeks time to monitor weight loss. Total time was 30 min, greater than 50 % of time was spent on care coordination Case discussed with collaborating physician Ignacio Liu who reviewed the assessment and plan. Chart, medications, labs, vital signs reviewed. Dictation was accomplished with the use of [employer] voice recognition software, prone to medical misidentifications and grammatical errors. This is unintentional and the practitioner does try to identify and correct these, but some could still be present. Please do not hesitate to contact practitioner for clarification. All questions answered to patients satisfaction. Patient verbalized understanding of diagnosis and treatments explained. To call sooner prior to next visit it any questions/concerns arise. 12/27/2023 Weight loss counseling, encounter for (ICD-10 - Z71.3) #Obesity. 12/27/23: 144.8 pounds, BMI 26.3. She has done fantastic on Zepbound. She has been on 12.5 mg as the 10 mg was not available. Will resubmit 10 mg dose as she is now in the maintenance phase. Will continue regular exercise including weightlifting and increase protein in diet. KEYONA injection given today. Plan to follow-up in 6 weeks sooner with any concerns. 10/20/23: 146.4 lbs, BMI 26.6. She is doing well on Zepp bound 12.5. KEYONA injection also given today. 08/01/23: 156.9 lbs, BMI 28.5 She is doing well on Zepbound. KEYONA given today. Currently on Zepbound 10 mg. 06/29/23: 162 lbs, BMI 29.36: Zepbound 7.5 mg 06/01/23: 168.76, BMI 30.9 She is doing well on Zepbound with first dose at 5 mg yesterday. 05/04/23: Weight 170.75 pounds, BMI 31.2. Zepbound 2.5 mg #Endometriosis- S/p hysterectomy, left ovary remains. Currently on estradiol. Managed by PCP and [employer] TE[employer]. The patient will continue exercise regimen with an emphasis on improving/increasing steps to at least 6,000-10,000 steps per day. Increasing cardio and strength training exercises as tolerated to improve weight loss and work on building muscle mass. Patient is committed to smarter eating with calorie counting and mindful eating. Limiting processed foods and carbohydrates and increasing leafy greens and lean proteins as well as fruits into their diet. Patient was counseled on the importance of eating local, organic food when possible. Patient has been counseled regarding effects of GLP/GIP-1 agonists and other FDA approved weight loss medications with regards to a multifactorial approach of weight loss as mentioned above and that the medication alone will not be sufficient to meet patients goals. We discussed holistic medication approach with emphasis on lifestyle modification. Discussed obesity as it increases risk of diabetes, cardiovascular disease, and/or organ damage. We spent a lot of time discussing the relationship between food, exercise, sleep, mental health, and obesity. We discussed the importance of having SECAs done every visit and having accountability done during these visits. That the scale is done to monitor not only weight loss but the body composition during medication management and healthy lifestyle changes. We discussed that if the patient is unable at times to financially afford this scale that we would rather waive the fee and have the scale done than have the patient not have the scale obtained. Will follow up with the patient in 4 weeks time to monitor weight loss. Total time was 30 min, greater than 50 % of time was spent on care coordination Case discussed with collaborating physician Ignacio Liu who reviewed the assessment and plan. Chart, medications, labs, vital signs reviewed. Dictation was accomplished with the use of [employer] voice recognition software, prone to medical misidentifications and grammatical errors. This is unintentional and the practitioner does try to identify and correct these, but some could still be present. Please do not hesitate to contact practitioner for clarification. All questions answered to patients satisfaction. Patient verbalized understanding of diagnosis and treatments explained. To call sooner prior to next visit it any questions/concerns arise. 02/21/2024 Weight loss counseling, encounter for (ICD-10 - Z71.3) #Obesity. 02/21/24: 144.7, BMI 26.3. She is doing fantastic on Zepbound 10 mg every 2 weeks. KEYONA injection given today. Will continue current regimen. Continue protein intake, hydration and regular exercise including weight training. Follow-up in 4 to 6 weeks. Will recheck labs and review at follow-up visit. 12/27/23: 144.8 pounds, BMI 26.3. She has done fantastic on Zepbound. She has been on 12.5 mg as the 10 mg was not available. Will resubmit 10 mg dose as she is now in the maintenance phase. Will continue regular exercise including weightlifting and increase protein in diet. KEYONA injection given today. Plan to follow-up in 6 weeks sooner with any concerns. 10/20/23: 146.4 lbs, BMI 26.6. She is doing well on Zepp bound 12.5. KEYONA injection also given today. 08/01/23: 156.9 lbs, BMI 28.5 She is doing well on Zepbound. KEYONA given today. Currently on Zepbound 10 mg. 06/29/23: 162 lbs, BMI 29.36: Zepbound 7.5 mg 06/01/23: 168.76, BMI 30.9 She is doing well on Zepbound with first dose at 5 mg yesterday. 05/04/23: Weight 170.75 pounds, BMI 31.2. Zepbound 2.5 mg #Endometriosis- S/p hysterectomy, left ovary remains. Currently on estradiol. Managed by PCP and [employer] TE[employer]. The patient will continue exercise regimen with an emphasis on improving/increasing steps to at least 6,000-10,000 steps per day. Increasing cardio and strength training exercises as tolerated to improve weight loss and work on building muscle mass. Patient is committed to smarter eating with calorie counting and mindful eating. Limiting processed foods and carbohydrates and increasing leafy greens and lean proteins as well as fruits into their diet. Patient was counseled on the importance of eating local, organic food when possible. Patient has been counseled regarding effects of GLP/GIP-1 agonists and other FDA approved weight loss medications with regards to a multifactorial approach of weight loss as mentioned above and that the medication alone will not be sufficient to meet patients goals. We discussed holistic medication approach with emphasis on lifestyle modification. Discussed obesity as it increases risk of diabetes, cardiovascular disease, and/or organ damage. We spent a lot of time discussing the relationship between food, exercise, sleep, mental health, and obesity. We discussed the importance of having SECAs done every visit and having accountability done during these visits. That the scale is done to monitor not only weight loss but the body composition during medication management and healthy lifestyle changes. We discussed that if the patient is unable at times to financially afford this scale that we would rather waive the fee and have the scale done than have the patient not have the scale obtained. Will follow up with the patient in 4 weeks time to monitor weight loss. Total time was 30 min, greater than 50 % of time was spent on care coordination Case discussed with collaborating physician Ignacio Liu who reviewed the assessment and plan. Chart, medications, labs, vital signs reviewed. Dictation was accomplished with the use of [employer] voice recognition software, prone to medical misidentifications and grammatical errors. This is unintentional and the practitioner does try to identify and correct these, but some could still be present. Please do not hesitate to contact practitioner for clarification. All questions answered to patients satisfaction. Patient verbalized understanding of diagnosis and treatments explained. To call sooner prior to next visit it any questions/concerns arise. 04/11/2024 Weight loss counseling, encounter for (ICD-10 - Z71.3) #Obesity. 04/11/24: 147.3 pounds, BMI 26.7. She has done fantastic on Zepbound 10 mg and is currently doing it every other week. She is in maintenance at this point and is working to build more muscle mass. KEYONA injection given today. Will plan to try titrating down to 7.5 mg dose in the next month and monitor symptoms. Discussed she can take it weekly. Continue high-protein diet and regular resistance training. She has not yet done her labs but will do prior to her next visit. Follow-up in 1 month sooner with any concerns. 02/21/24: 144.7, BMI 26.3. 12/27/23: 144.8 pounds, BMI 26.3. 10/20/23: 146.4 lbs, BMI 26.6. 08/01/23: 156.9 lbs, BMI 28.5 06/29/23: 162 lbs, BMI 29.36: 06/01/23: 168.76, BMI 30.9 05/04/23: Weight 170.75 pounds, BMI 31.2. #Endometriosis- S/p hysterectomy, left ovary remains. Currently on estradiol. Managed by PCP and [employer] TE[employer]. The patient will continue exercise regimen with an emphasis on improving/increasing steps to at least 6,000-10,000 steps per day. Increasing cardio and strength training exercises as tolerated to improve weight loss and work on building muscle mass. Patient is committed to smarter eating with calorie counting and mindful eating. Limiting processed foods and carbohydrates and increasing leafy greens and lean proteins as well as fruits into their diet. Patient was counseled on the importance of eating local, organic food when possible. Patient has been counseled regarding effects of GLP/GIP-1 agonists and other FDA approved weight loss medications with regards to a multifactorial approach of weight loss as mentioned above and that the medication alone will not be sufficient to meet patients goals. We discussed holistic medication approach with emphasis on lifestyle modification. Discussed obesity as it increases risk of diabetes, cardiovascular disease, and/or organ damage. We spent a lot of time discussing the relationship between food, exercise, sleep, mental health, and obesity. We discussed the importance of having SECAs done every visit and having accountability done during these visits. That the scale is done to monitor not only weight loss but the body composition during medication management and healthy lifestyle changes. We discussed that if the patient is unable at times to financially afford this scale that we would rather waive the fee and have the scale done than have the patient not have the scale obtained. Will follow up with the patient in 4 weeks time to monitor weight loss. Total time was 30 min, greater than 50 % of time was spent on care coordination Case discussed with collaborating physician Ignacio Liu who reviewed the assessment and plan. Chart, medications, labs, vital signs reviewed. Dictation was accomplished with the use of [employer] voice recognition software, prone to medical misidentifications and grammatical errors. This is unintentional and the practitioner does try to identify and correct these, but some could still be present. Please do not hesitate to contact practitioner for clarification. All questions answered to patients satisfaction. Patient verbalized understanding of diagnosis and treatments explained. To call sooner prior to next visit it any questions/concerns arise. 05/24/2024 Weight loss counseling, encounter for (ICD-10 - Z71.3) #Obesity. 05/24/24: 137.6, BMI 25.0. She has done fantastic on Zepbound and just decreased from 10 mg to 7.5 mg this past week. She is in maintenance at this point and is working to build more muscle mass. KEYONA injection given today. Continue high-protein diet and regular resistance training. She has not yet done her labs but will do prior to her next visit. Follow-up in 1 month sooner with any concerns. #Endometriosis- S/p hysterectomy, left ovary remains. Currently on estradiol. Managed by PCP and [employer] TE[employer]. The patient will continue exercise regimen with an emphasis on improving/increasing steps to at least 6,000-10,000 steps per day. Increasing cardio and strength training exercises as tolerated to improve weight loss and work on building muscle mass. Patient is committed to smarter eating with calorie counting and mindful eating. Limiting processed foods and carbohydrates and increasing leafy greens and lean proteins as well as fruits into their diet. Patient was counseled on the importance of eating local, organic food when possible. Patient has been counseled regarding effects of GLP/GIP-1 agonists and other FDA approved weight loss medications with regards to a multifactorial approach of weight loss as mentioned above and that the medication alone will not be sufficient to meet patients goals. We discussed holistic medication approach with emphasis on lifestyle modification. Discussed obesity as it increases risk of diabetes, cardiovascular disease, and/or organ damage. We spent a lot of time discussing the relationship between food, exercise, sleep, mental health, and obesity. We discussed the importance of having SECAs done every visit and having accountability done during these visits. That the scale is done to monitor not only weight loss but the body composition during medication management and healthy lifestyle changes. We discussed that if the patient is unable at times to financially afford this scale that we would rather waive the fee and have the scale done than have the patient not have the scale obtained. Will follow up with the patient in 4 weeks time to monitor weight loss. Total time was 30 min, greater than 50 % of time was spent on care coordination Case discussed with collaborating physician Ignacio Liu who reviewed the assessment and plan. Chart, medications, labs, vital signs reviewed. Dictation was accomplished with the use of [employer] voice recognition software, prone to medical misidentifications and grammatical errors. This is unintentional and the practitioner does try to identify and correct these, but some could still be present. Please do not hesitate to contact practitioner for clarification. All questions answered to patients satisfaction. Patient verbalized understanding of diagnosis and treatments explained. To call sooner prior to next visit it any questions/concerns arise. 06/26/2024 Weight loss counseling, encounter for (ICD-10 - Z71.3) #Obesity. 06/26/24: 142.2, BMI 25.8. She has done fantastic on Zepbound and currently on 7.5 mg. She is in maintenance at this point and is working to build more muscle mass. KEYONA injection given today. Weight is up 4-1/2 pounds however sat mass of 1 pound muscle down 1 pound. Contin is up a bit. She would like to repeat her SECA again in 1 week. Will schedule nurse visit. No charge. #Endometriosis- S/p hysterectomy, left ovary remains. Currently on estradiol. Managed by PCP and [employer] TECH. The patient will continue exercise regimen with an emphasis on improving/increasing steps to at least 6,000-10,000 steps per day. Increasing cardio and strength training exercises as tolerated to improve weight loss and work on building muscle mass. Patient is committed to smarter eating with calorie counting and mindful eating. Limiting processed foods and carbohydrates and increasing leafy greens and lean proteins as well as fruits into their diet. Patient was counseled on the importance of eating local, organic food when possible. Patient has been counseled regarding effects of GLP/GIP-1 agonists and other FDA approved weight loss medications with regards to a multifactorial approach of weight loss as mentioned above and that the medication alone will not be sufficient to meet patients goals. We discussed holistic medication approach with emphasis on lifestyle modification. Discussed obesity as it increases risk of diabetes, cardiovascular disease, and/or organ damage. We spent a lot of time discussing the relationship between food, exercise, sleep, mental health, and obesity. We discussed the importance of having SECAs done every visit and having accountability done during these visits. That the scale is done to monitor not only weight loss but the body composition during medication management and healthy lifestyle changes. We discussed that if the patient is unable at times to financially afford this scale that we would rather waive the fee and have the scale done than have the patient not have the scale obtained. Will follow up with the patient in 4 weeks time to monitor weight loss. Total time was 30 min, greater than 50 % of time was spent on care coordination Case discussed with collaborating physician Ignacio Liu who reviewed the assessment and plan. Chart, medications, labs, vital signs reviewed. Dictation was accomplished with the use of [employer] voice recognition software, prone to medical misidentifications and grammatical errors. This is unintentional and the practitioner does try to identify and correct these, but some could still be present. Please do not hesitate to contact practitioner for clarification. All questions answered to patients satisfaction. Patient verbalized understanding of diagnosis and treatments explained. To call sooner prior to next visit it any questions/concerns arise. 06/26/2024 Vitamin D deficiency (ICD-10 - E55.9) #Obesity. 06/26/24: 142.2, BMI 25.8. She has done fantastic on Zepbound and currently on 7.5 mg. She is in maintenance at this point and is working to build more muscle mass. KEYONA injection given today. Weight is up 4-1/2 pounds however sat mass of 1 pound muscle down 1 pound. Contin is up a bit. She would like to repeat her SECA again in 1 week. Will schedule nurse visit. No charge. #Endometriosis- S/p hysterectomy, left ovary remains. Currently on estradiol. Managed by PCP and [employer] TECH. The patient will continue exercise regimen with an emphasis on improving/increasing steps to at least 6,000-10,000 steps per day. Increasing cardio and strength training exercises as tolerated to improve weight loss and work on building muscle mass. Patient is committed to smarter eating with calorie counting and mindful eating. Limiting processed foods and carbohydrates and increasing leafy greens and lean proteins as well as fruits into their diet. Patient was counseled on the importance of eating local, organic food when possible. Patient has been counseled regarding effects of GLP/GIP-1 agonists and other FDA approved weight loss medications with regards to a multifactorial approach of weight loss as mentioned above and that the medication alone will not be sufficient to meet patients goals. We discussed holistic medication approach with emphasis on lifestyle modification. Discussed obesity as it increases risk of diabetes, cardiovascular disease, and/or organ damage. We spent a lot of time discussing the relationship between food, exercise, sleep, mental health, and obesity. We discussed the importance of having SECAs done every visit and having accountability done during these visits. That the scale is done to monitor not only weight loss but the body composition during medication management and healthy lifestyle changes. We discussed that if the patient is unable at times to financially afford this scale that we would rather waive the fee and have the scale done than have the patient not have the scale obtained. Will follow up with the patient in 4 weeks time to monitor weight loss. Total time was 30 min, greater than 50 % of time was spent on care coordination Case discussed with collaborating physician Ignacio Liu who reviewed the assessment and plan. Chart, medications, labs, vital signs reviewed. Dictation was accomplished with the use of [employer] voice recognition software, prone to medical misidentifications and grammatical errors. This is unintentional and the practitioner does try to identify and correct these, but some could still be present. Please do not hesitate to contact practitioner for clarification. All questions answered to patients satisfaction. Patient verbalized understanding of diagnosis and treatments explained. To call sooner prior to next visit it any questions/concerns arise. 02/21/2024 Elevated lipids (ICD-10 - E78.5) #Obesity. 02/21/24: 144.7, BMI 26.3. She is doing fantastic on Zepbound 10 mg every 2 weeks. KEYONA injection given today. Will continue current regimen. Continue protein intake, hydration and regular exercise including weight training. Follow-up in 4 to 6 weeks. Will recheck labs and review at follow-up visit. 12/27/23: 144.8 pounds, BMI 26.3. She has done fantastic on Zepbound. She has been on 12.5 mg as the 10 mg was not available. Will resubmit 10 mg dose as she is now in the maintenance phase. Will continue regular exercise including weightlifting and increase protein in diet. KEYONA injection given today. Plan to follow-up in 6 weeks sooner with any concerns. 10/20/23: 146.4 lbs, BMI 26.6. She is doing well on Zepp bound 12.5. KEYONA injection also given today. 08/01/23: 156.9 lbs, BMI 28.5 She is doing well on Zepbound. KEYONA given today. Currently on Zepbound 10 mg. 06/29/23: 162 lbs, BMI 29.36: Zepbound 7.5 mg 06/01/23: 168.76, BMI 30.9 She is doing well on Zepbound with first dose at 5 mg yesterday. 05/04/23: Weight 170.75 pounds, BMI 31.2. Zepbound 2.5 mg #Endometriosis- S/p hysterectomy, left ovary remains. Currently on estradiol. Managed by PCP and [employer] TECH. The patient will continue exercise regimen with an emphasis on improving/increasing steps to at least 6,000-10,000 steps per day. Increasing cardio and strength training exercises as tolerated to improve weight loss and work on building muscle mass. Patient is committed to smarter eating with calorie counting and mindful eating. Limiting processed foods and carbohydrates and increasing leafy greens and lean proteins as well as fruits into their diet. Patient was counseled on the importance of eating local, organic food when possible. Patient has been counseled regarding effects of GLP/GIP-1 agonists and other FDA approved weight loss medications with regards to a multifactorial approach of weight loss as mentioned above and that the medication alone will not be sufficient to meet patients goals. We discussed holistic medication approach with emphasis on lifestyle modification. Discussed obesity as it increases risk of diabetes, cardiovascular disease, and/or organ damage. We spent a lot of time discussing the relationship between food, exercise, sleep, mental health, and obesity. We discussed the importance of having SECAs done every visit and having accountability done during these visits. That the scale is done to monitor not only weight loss but the body composition during medication management and healthy lifestyle changes. We discussed that if the patient is unable at times to financially afford this scale that we would rather waive the fee and have the scale done than have the patient not have the scale obtained. Will follow up with the patient in 4 weeks time to monitor weight loss. Total time was 30 min, greater than 50 % of time was spent on care coordination Case discussed with collaborating physician Ignacio Liu who reviewed the assessment and plan. Chart, medications, labs, vital signs reviewed. Dictation was accomplished with the use of [employer] voice recognition software, prone to medical misidentifications and grammatical errors. This is unintentional and the practitioner does try to identify and correct these, but some could still be present. Please do not hesitate to contact practitioner for clarification. All questions answered to patients satisfaction. Patient verbalized understanding of diagnosis and treatments explained. To call sooner prior to next visit it any questions/concerns arise. 06/26/2024 Anemia due to vitamin B12 deficiency, unspecified B12 deficiency type (ICD-10 - D51.9) #Obesity. 06/26/24: 142.2, BMI 25.8. She has done fantastic on Zepbound and currently on 7.5 mg. She is in maintenance at this point and is working to build more muscle mass. KEYONA injection given today. Weight is up 4-1/2 pounds however sat mass of 1 pound muscle down 1 pound. Contin is up a bit. She would like to repeat her SECA again in 1 week. Will schedule nurse visit. No charge. #Endometriosis- S/p hysterectomy, left ovary remains. Currently on estradiol. Managed by PCP and POLYS[employer] TECH. The patient will continue exercise regimen with an emphasis on improving/increasing steps to at least 6,000-10,000 steps per day. Increasing cardio and strength training exercises as tolerated to improve weight loss and work on building muscle mass. Patient is committed to smarter eating with calorie counting and mindful eating. Limiting processed foods and carbohydrates and increasing leafy greens and lean proteins as well as fruits into their diet. Patient was counseled on the importance of eating local, organic food when possible. Patient has been counseled regarding effects of GLP/GIP-1 agonists and other FDA approved weight loss medications with regards to a multifactorial approach of weight loss as mentioned above and that the medication alone will not be sufficient to meet patients goals. We discussed holistic medication approach with emphasis on lifestyle modification. Discussed obesity as it increases risk of diabetes, cardiovascular disease, and/or organ damage. We spent a lot of time discussing the relationship between food, exercise, sleep, mental health, and obesity. We discussed the importance of having SECAs done every visit and having accountability done during these visits. That the scale is done to monitor not only weight loss but the body composition during medication management and healthy lifestyle changes. We discussed that if the patient is unable at times to financially afford this scale that we would rather waive the fee and have the scale done than have the patient not have the scale obtained. Will follow up with the patient in 4 weeks time to monitor weight loss. Total time was 30 min, greater than 50 % of time was spent on care coordination Case discussed with collaborating physician Ignacio Liu who reviewed the assessment and plan. Chart, medications, labs, vital signs reviewed. Dictation was accomplished with the use of [employer] voice recognition software, prone to medical misidentifications and grammatical errors. This is unintentional and the practitioner does try to identify and correct these, but some could still be present. Please do not hesitate to contact practitioner for clarification. All questions answered to patients satisfaction. Patient verbalized understanding of diagnosis and treatments explained. To call sooner prior to next visit it any questions/concerns arise. PLAN OF TREATMENT Pending Test Test Name Order Date VITAMIN B12 06/26/2024 LIPID PANEL, STANDARD 02/21/2024 COMPREHENSIVE METABOLIC PANEL 02/21/2024 VITAMIN D,25-OH,TOTAL,IA 06/26/2024 Next Appt Details Provider Name:GENNA ARREOLA, 07/06/2024 08:15:00 AM, [address], [place] [address], [place], [address], Provider Name:Mary Sawyer, 0 07/30/2024 08:30:00 AM, [address], [facility] [address], [place], [address], Provider Name:Mary Sawyer, 0 08/30/2024 08:00:00 AM, [address], [place] [address], [place], [address], Insurance Providers Payer Name Payer Address Payer Phone Subscriber Number Group Number Insured Name Patient Relationship to Insured Coverage Start Date Coverage End Date [facility] [address] [place] [address] [phone] [id number] [phone] Yoana Goncalves Self - patient is the insured MEDICATIONS ADMINISTERED Medication Instructions Date of Administration Dosage Notes MICC B12 INJECTION 05/04/2023 MICC B12 INJECTION 06/01/2023 MICC B12 INJECTION 06/15/2023 1 MICC B12 INJECTION 08/01/2023 MICC B12 INJECTION 08/31/2023 MICC B12 INJECTION 09/15/2023 1 mg MICC B12 INJECTION 10/10/2023 1 mL MICC B12 INJECTION 10/20/2023 MICC B12 INJECTION 12/27/2023 1 mg MICC B12 INJECTION 02/03/2024 1 mL MICC B12 INJECTION 02/10/2024 1 mL MICC B12 INJECTION 02/21/2024 MICC B12 INJECTION 04/30/2024 1 mL MICC B12 INJECTION 05/24/2024 1 mL MICC B12 INJECTION 06/15/2024 1 mg MICC B12 INJECTION 06/26/2024 1 mg MEDICAL (GENERAL) HISTORY Medical History History ICD Code asthma seasonal allergies Surgical History Surgery Date(Month/Year) hysterectomy 07/20/2021 section 02/15/2009 left breast reconstruction,- removal and fat grafts 05/15/2018
== END 2024-07-05 13:01 | disposition home or self-care (01) ==
LOC: HO.HMCFM 12:14
PROVIDERS: PCP Nurse Practitioner Family; Visit Provider Nurse Practitioner Family
DX: Z76.89 Persons encountering health services in other specified circumstances (principal); R74.8 Abnormal levels of other serum enzymes; Z83.438 Family history of other disorder of lipoprotein metabolism and other lipidemia; F41.1 Generalized anxiety disorder; Z80.3 Family history of malignant neoplasm of breast; Z91.89 Other specified personal risk factors, not elsewhere classified; E55.9 Vitamin D deficiency, unspecified; N83.202 Unspecified ovarian cyst, left side; M76.01 Gluteal tendinitis, right hip; M76.02 Gluteal tendinitis, left hip

== ENCOUNTER → 2024-07-05 12:13 | Outpatient (BNVA) | payer BC, SELFPAY | PROVIDERS: PCP Nurse Practitioner Family; Visit Provider Nurse Practitioner Family | DX: Z76.89 Persons encountering health services in other specified circumstances (principal); R74.8 Abnormal levels of other serum enzymes; F41.1 Generalized anxiety disorder; E55.9 Vitamin D deficiency, unspecified; N83.202 Unspecified ovarian cyst, left side; M70.61 Trochanteric bursitis, right hip; M70.62 Trochanteric bursitis, left hip; Z83.438 Family history of other disorder of lipoprotein metabolism and other lipidemia; Z80.3 Family history of malignant neoplasm of breast; Z91.89 Other specified personal risk factors, not elsewhere classified | CPT/HCPCS: 96127 ==

== ENCOUNTER 2024-07-06 11:03 | Outpatient (REF) | payer BC, SELFPAY ==
[2024-07-06 11:32] LABS: Hematocrit 34.7 % (37.0-47.0); Hemoglobin 12.1 g/dl (12.0-16.0); Mean Corpuscular HGB Conc 34.9 g/dl (31.0-35.0); Mean Corpuscular Hemoglobin 30.7 pg (27.0-33.0); Mean Corpuscular Volume 88.1 fL (80.0-98.0); Mean Platelet Volume 8.8 fL (9.4-12.3); Platelet Count 227 X10*3/uL (160-400); Red Blood Count 3.94 X10*6/uL (4.20-5.50); Red Cell Distribution Width 11.9 % (11.0-16.0); White Blood Count 5.2 X10*3/uL (4.8-10.8)
[2024-07-06 12:10] LABS: Iron 67 mcg/dL (30-160); Percent Iron Saturation 28 % (15-50); Total Iron Binding Capacity 242 mcg/dL (228-428); Unsaturated Iron Binding 175 ug/dL
--- OUTSIDE RECORDS SUMMARY | 2024-07-06 12:12 | XMS_ITS | Data Portability ---
Author Organization [place] - [facility],, ELEN SPANGLER MD Address [address] [address] Care Team Providers Care Materials And Processes Manager Name Role Phone HAIR CHOUTIFFANYRAJEEV Primary Care [...] Go To The Location Of Their Choice, [id number] 10/27/2023 18:10:12 hemoglobi n, gastroint estinal, stool 2023 024 [email or web address] 1 In-Office Order, Internal Use Only DO Not Attach Compendium DO Not Attach Compendium, Do Not Delete/merge, [id number] 10/24/2023 12:01:32 pap test, thinprep, cervical 2022 023 [email or web address] [facility] (Centralized Electronic Ordering - All Locations), Patient Can Go To The Location Of Their Choice, [id number] 11/04/2022 07:37:46 fecal occult blood, stool 2022 023 [email or web address] 1 In-Office Order, Internal Use Only DO Not Attach Compendium DO Not Attach Compendium, Do Not Delete/merge, [id number] 10/21/2022 09:24:20 Referral None recorded. Procedures None recorded. Surgeries None recorded. Imaging US, pelvis, transabdo sarah + transvagi nal - 3.5 cm left ovarian cyst on recent MRI, past history of unilatera l salpingo oophorect alfonso with hysterect alfonso for endometri osis, please assess left ovary 2024 025 [facility] Orders, [address], [address], [place], [address], 07/06/2024 09:22:49 MAMMO, screening , digital, bilateral - Breast Aspiratio n and/or Biopsy if needed 2023 024 [facility] Orders, [address], [address], [place], [address], 06/05/2024 16:39:14 MAMMO, screening , digital, bilateral - Breast Aspiratio n and/or Biopsy if needed 2022 023 [facility] Orders, [address], [address], [place], [address], 06/02/2023 15:18:42 Medication Orders Estring 2 mg (7.5 mcg/24 hour) vaginal ring 2023 024 [facility], [facility], [place], [address], 10/24/2023 12:01:32 estradiol 1 mg tablet 2023 024 [facility][id number], [address] [place], [address], 10/24/2023 12:01:33 Estring 2 mg (7.5 mcg/24 hour) vaginal ring 2023 024 [email or web address] 1 [facility], [place], [address], 06/07/2023 11:59:09 estradiol 2 mg tablet 2022 023 [email or web address] [id number], [address] [place], [address], 10/24/2023 10:43:19 Patient TargetsNo targets recorded. 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 She would like a second opinion [...] the breast. Not available 10/21/2022 09:25:18 12/02/2022 [id number] This visit is a phone telehealth visit. The patient consented to the visit by phone. The patient was at home at the time of the call and the provider and patient were the only people on the line. I was at [address] [facility], [address], [place], [place], at the time of the call. [...] and follow up with my PCP, my COMPETITIVE INTELLIGENCE ANALYST and my surgeon from my hysterectomy. ? I am hoping that you can help me figure out this pain that I am having bc it? s very concerning to me. I want to make sure I? m doing everything to get to the bottom of this pain. She had been put on depo lupron years ago by her prior washing and screening plant supervisor because she had presumptive endometriosis, and the [...] call. Face to face discussion 33 minutes [email or web address] Not available 12/02/2022 11:32:22 06/07/2023 [id number] atrophic vaginitis: care instructions Not available 06/07/2023 10:57:59 This visit is a phone telehealth visit. The patient consented to the visit by phone. The patient was at work at the time of the call and the provider and patient were the only people on the line. I was at [address] [place] [address], [address], [place], [place], at the time of the call. [...] 21 minutes. Not available 06/07/2023 11:12:35 10/24/2023 [id number] learning about healthy weight Not available 10/24/2023 [...] the breast. Not available 10/24/2023 11:08:48 07/03/2024 [id number] She is here for follow up after [...] Tissu e Sourc e: 1: THINP REP COMPETITIVE INTELLIGENCE ANALYST PAP TEST, CERVI ROXANNE/V AGINA L: Final [...] rep Imagi ng Syste m with declan freeman rescr kyle membreno or macario fragoso. Clini roxanne Histo ry (othe r): Z01.4 19 Phone #: [phone], On-Ca ll Patho logis t: [id number] Not Available [facility] (Centralized Electronic Ordering - All Locations) Patient Can Go To The Location Of Their Choice, [id number] 10/29/2022 10:55:32 10/22/1910/21/2022 fecal occul t blood , stool Occult Blood negati ve Not Available In-Office Order Internal Use Only DO Not Attach Compendium DO Not Attach Compendium, Do Not Delete/merge, [id number] 10/21/2022 09:03:31 10/24/19 24 10/27/2023 IGP, RFX APTIM A HPV ASCU diagnosis: Commen t NEGAT HANNA FOR INTRA EPITH ELIAL LESIO N OR MALIG LIZBETH . Not Available [facility] ([facility]) [address] [place], [address], 10/27/2023 18:10:11 10/24/19 24 10/27/2023 IGP, RFX APTIM A HPV ASCU specimen adequacy: Andrés briceño Satis facto ry for evalu ation . Not Available [facility] ([facility]) [address] [place], [address], 10/27/2023 18:10:11 10/24/19 24 10/27/2023 IGP, RFX APTIM A HPV ASCU clinician provided ICD10: Andrés briceño Z01.4 19 Not Available [facility] ([facility]) [address] [place], [address], 10/27/2023 18:10:11 10/24/19 24 10/27/2023 IGP, RFX APTIM A HPV ASCU performed by: Abdulaziz Munoz (ASCP ) Not Available [facility] ([facility]) [address] [place], [address], 10/27/2023 18:10:11 10/24/19 24 10/27/2023 IGP, RFX APTIM A HPV ASCU . . Not Available [facility] ([facility]) [address] [place], [address], 10/27/2023 18:10:11 10/24/19 24 10/27/2023 IGP, RFX [...] ts do occur . Not Available [facility] ([facility]) [address] [facility], [place], [address], 10/27/2023 18:10:11 10/24/19 24 10/27/2023 IGP, RFX APTIM A HPV ASCU test methodology: Commen t This liqui d based ThinP rep(R ) pap test was arelis javier with the use of an image guide todd leary. Not Available [facility] ([facility]) [address] [facility], [place], [address], 10/27/2023 18:10:11 10/24/19 24 10/27/2023 IGP, RFX APTIM A HPV ASCU . Commen t The HPV DNA refle x crite shahnaz were not met with this speci men resul t there fore, no HPV testi ng was perfo rmed. Not Available [facility] ([facility]) [address] [facility], [place], [address], 10/27/2023 18:10:11 10/24/19 24 10/24/2023 hemog lobin , gastr ointe saumya l, stool Occult Blood negati ve Not Available In-Office Order Internal Use Only DO Not Attach Compendium DO Not Attach Compendium, Do Not Delete/merge, [id number] 10/24/2023 10:48:21 06/02/19 24 06/02/2023 MAMMO arelis, digit al, bilat eral No observ ation record ed. [facility] [place] [address], [place], [address], 06/02/2023 15:18:52 06/06/19 25 06/05/2024 MAMMO , arelis hurtg, digit al, bilat eral No observ ation record ed. [email or web address] [facility] [address] [place], [address], 07/03/2024 13:44:30 06/23/19 25 06/17/2024 MRI, pelvi s, w/ contr ast No observ ation record ed. [facility] ([facility] [address], [place], [address], 06/22/2024 08:50:27 07/05/19 25 MAMMO , diagn ostic , digit al, unila teral No observ ation record ed. BARCODE [facility] Orders [address], [place], [address], 07/04/2024 07:22:23 07/07/19 25 07/05/2024 US, pelvi s, trans abdom inal + trans vagin al No observ ation record ed. [email or web address] [facility] [address] [facility], [place], [address], 07/06/2024 09:50:19 Result Notes None recorded. Problems Name Problem SNOMED Code Status Onset Date Resolution Date Notes Provider Name and Address Organization Details Recorded Time Endometrios is (clinical) 393508688 Active 2021 Apple villalobos [place] - [facility], 2 15:09:24 Anxiety 63606446 Active 2021 Apple villalobos [place] - [facility], 2 15:09:35 History of endometrios is 6810740226771 4107 Active 2021 Elen Spangler MD [address] [facility],[address], [place], [address], [place] - [facility], 2 15:47:20 Family history of malignant neoplasm of breast in first degree relative 204024472 Active 2021 Elen Spangler MD [address], [place], [address], [place] - [facility], 2 11:54:08 Family history of malignant neoplasm of male breast 187127243 Active 2021 Elen Spangler MD [address], [place], [address], [place] - [facility], 2 11:55:02 At high risk for malignant neoplasm of breast 5625454546850 02 Active 2021 Damian Alvarez 23.8% Elen Spangler MD [address], [place], [address], [place] [facility], 2 13:56:26 Atrophic vaginitis 93908269 Active 2023 Elen Spangler MD [address], [place], [address], [place] - [facility], 4 10:54:35 Dyspareunia 40883859 Active 2023 Elen Spangler MD [address], [place], [address], [place] - [facility], 4 11:07:40 Problem Notes None recorded. Procedures Surgical History Date Name Laterality Status Provider Name and Address Organization Details Recorded Time 06/02/19 25 Most Recent Mammogram completed Brianna Meza in [facility], 07/03/2024 13:28:13 07/21/19 22 Hysterectomy completed Apple Meza in [facility], 10/20/2021 14:52:17 repair of incisional hernia completed Brianna Meza in [facility], 10/16/2021 11:14:40 section completed Brianna Meza in [facility], 10/16/2021 11:14:53 lumpectomy of breast completed Brianna Meza in [facility], 10/16/2021 11:15:11 leg repair completed Apple Meza in [facility], 10/20/2021 15:14:08 Nipple/areola reconstruction completed Apple Meza in [facility], 10/20/2021 15:12:50 Dilation and Curettage completed Brianna Meza in [facility], 10/16/2021 11:16:51 Tonsillectomy completed Brianna Meza in [facility], 10/16/2021 11:17:35 orthognathic operation of mandible completed Apple Meza in [facility], 10/20/2021 15:13:21 procedure on back completed Kusum Meza in [facility], 10/20/2021 15:14:52 Imaging Results Imaging Date Name Status LastModified by Organization Details LastModified Time 06/02/2023 MAMMO, screening, digital, bilateral completed [address] [facility] [address] [place], [address], 06/02/2023 15:18:52 06/05/2024 MAMMO, screening, digital, bilateral completed [facility] [place] [address] [place], [address], 07/03/2024 13:44:30 06/17/2024 MRI, pelvis, w/ contrast completed [address] [facility] ([facility]) [address] [place], [address], 06/22/2024 08:50:27 07/04/2024 MAMMO, diagnostic, digital, unilateral completed [facility] Orders [address] [facility] [address], [place], [address], 07/04/2024 07:22:23 07/05/2024 US, pelvis, transabdominal + transvaginal completed [facility] [address] [place], [address], 07/06/2024 09:50:19 Procedure Notes None recorded. Medical Equipment None Reported. Allergies Allergen ID Allergen Name Allergen Category Reaction Reaction Severity Criticality Documentation Date Start Date Code Code System Note Provider Name and Address Organization Details Recorded Time Aleve medicatio n other Not available Not available 10/16/2021 51461 1 RxNorm tongu e swell ing Brianna Meczywor null, [place] - [facility], 2 11:24:54 30800 Bactrim medicatio n hives Not available Not available 10/16/2021 65348 9 RxNorm Brianna Meczywor null, [place] - [facility], 2 11:25:08 72074 Biaxin medicatio n hives Not available Not available 10/16/2021 07425 9 RxNorm Brianna Meczywor null, [place] - [facility], 2 11:25:25 65506 adhesive tape environme nt,medica tion Not available Not available Not available 10/16/2021 13264 UNK paper skin peels Brianna Meczywor null, [place] - [facility], 2 11:25:46 65469 Zoloft medicatio n facial swelling Not available Not available 10/16/2021 32586 RxNorm Brianna Meczywor null, [place] - [facility], 2 11:26:28 01593 morphine medicatio n dyspnea hives Not available Not available Not available 10/16/2021 7052 RxNorm Brianna Meczywor null, [place] - [facility], 2 11:26:51 90406 Product containin g penicilli n (product) medicatio n hives Not available Not available 10/16/2021 48308 8001 SNOMED Brianna Meczywor null, [place] - [facility], 2 11:27:17 53515 Substance with sulfonami de structure and antibacte rial mechanism of action (substanc e) medicatio n hives severe high 10/20/2021 05685 8003 SNOMED Apple villalobos, [place] - [facility], 2 15:05:15 Medications Name Sig Start [...] Updated DateTime 3 160.02 cm 33.1 kg/m2 78696.3 4 g 88 /min 118 mm[Hg] 47 mm[Hg] Brianna Meza in [facility], 3 09:01:25 Date Recorded Body height Provider Name an d Address Organization Details Last Updated DateTime 12/02/2022 160.02 cm Brianna martinez in [facility], 12/02/2022 10:22:43 Date Recorded Body height Provider Name an d Address Organization Details Last Updated DateTime 06/07/2023 160.02 cm yoana bunjudy wise in [facility], 06/07/2023 10:43:38 Date Recorded Body height Body temperature Heart rate Body mass index (BMI) Body weight Systolic blood pressure Diastolic blood pressure Provider Name and Address Organization Details Last Updated DateTime 4 158.75 cm 98.1 [degF] 72 /min 26.5 kg/m2 38362.8 g 124 mm[Hg] 51 mm[Hg] Brianna Meza in [facility], 4 10:44:06 Date Recorded Body height Body mass index (BMI) Body weight Heart rate Systolic blood pressure Diastolic blood pressure Provider Name and Address Organization Details Last Updated DateTime 5 158.75 cm 24.9 kg/m2 25638.4 7 g 85 /min 110 mm[Hg] 51 mm[Hg] Brianna Meza in [facility], 5 13:27:06 Social History Question Answer Notes LastModified by Organizat ion Details LastModified Time Tobacco Smoking Status Never Smoker [place] in [facility], 10/16/2021 11:20:34 What Is Your Level [...] Or The Highest Degree You Have Received? [id number] Information not available 10/20/2021 Who Is Your Employer? 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 Information not available 10/16/2021 Are There Any [...] Anxious, Or Unable To Sleep At Night)? [id number] Information not available 10/20/2021 Do You Use [...] of breast 32 still alive. ..but not papo membreno to take the test.. .does not discus [...] for MyRisk panel N Autoimmune Condition N Kidney or Bladder Problems N Thyroid Problems N Depression N Lung Disease N GI Problems N Defects or Inherited Disease N Anemia [...] mcg/0.25mL dose 1 completed [place] Good in [facility], 10/20/2021 15:08:14 COVID-19, mRNA, LNP-S, PF, 100 mcg/0.5mL dose or 50 mcg/0.25mL dose 1 completed [place] Good in [facility], 10/20/2021 15:08:28 COVID-19, mRNA, LNP-S, PF, 100 mcg/0.5mL dose or 50 mcg/0.25mL dose 1 completed [place] Good in [facility], 10/20/2021 15:08:39 Influenza, split virus, quadrivalent, preservative 1 completed [place] Good in [facility], 10/20/2021 15:08:50 COVID-19, mRNA, LNP-S, PF, 30 [...] Brianna Meczywor null, [place] - [facility], 03/05/2022 13:26:19 Influenza, MDCK, quadrivalent, PF 9 completed Brianna Meczywor null, [place] [facility], 03/05/2022 13:26:19 Influenza, MDCK, quadrivalent, PF 8 completed Brianna Meczywor null, [place] [facility], 03/05/2022 13:26:19 influenza, unspecified formulation 2 completed Brianna Meczywor null, [place] [facility], 03/05/2022 13:27:03 Past Encounters Encounter ID Performer Location Encounter Start Date Encounter Closed Date Diagnosis/Indication Diagnosis SNOMED-CT Code Diagnosis ICD10 Code Diagnosis Note [id number] MD ELEN Martinez MD [address] [place], [place] [address] [address] 10/20/2021 14:47:11 10/21/2021 09:53:55 Menopausal syndrome 512496231 N95.1 Vitamin D deficiency 347 91072 E55.9 History of endometriosis 6474235544 5100003 Z87.42 Anxiety 19315824 F41.9 [id number] MD ELEN Martinez MD [address] [place] [address],[place] [address] 10/27/2021 08:54:35 10/27/2021 13:25:58 Menopausal syndrome 494912283 N95.1 [id number] MD ELEN Martinez MD [address] [place] [address] [place] [address] 11/18/2021 10:59:51 11/18/2021 12:00:43 Family history of malignant neoplasm of breast in first degree relative 552359259 Z80.3 Family his tory of malignant neoplasm of male breast 846855927 Z80.3 [id number] MD ELEN Martinez MD [address] [place], [place] [address] 12/04/2021 13:33:55 12/04/2021 14:55:59 At high risk for malignant neoplasm of breast 7879107483 47861 Z91.89 [id number] MD ELEN Martinez MD [address] [place] [address] [place] [address] 01/01/2022 09:51:16 01/01/2022 10:53:30 Candidal vulvovaginitis 01096271 B37.31 [id number] MD ELEN Martinez MD [address] [place], [place] [address] [address] 03/05/2022 13:20:04 03/05/2022 14:05:11 Menopausal syndrome 139613085 N95.1 N95.2 Mammography abnormal 168 445825 R92.8 [id number] MD ELEN Martinez MD [address] [place] [address],[place] [address] 06/17/2022 11:06:21 06/17/2022 13:20:41 Fatigue 94594836 R53.83 Anxiety 00436781 F41.9 Menopausal syndrome 1237 76634 N95.1 N95.2 [id number] MD ELEN Martinez MD [address] [place] [address],[place] [address] 10/21/2022 08:57:12 10/21/2022 10:02:57 Specialized medical examination 96796198 Z01.419 Screening for malignant neoplasm of rectum 255360902 Z12.12 Screening mammography 24 119371 Z12.31 Menopausal syndrome 1237 62431 N95.1 N95.2 [id number] MD ELEN Martinez MD [address] [place] [address], [place] [address] 12/02/2022 10:20:23 12/02/2022 11:57:42 Pain in pelvis 92555172 R10.2 Menopausal syndrome 1237 70915 N95.1 N95.2 [id number] MD ELEN Martinez MD [address] [place] [address],[place] [address] 06/07/2023 10:33:07 06/07/2023 13:45:15 Atrophic vaginitis 25239810 N95.2 Dyspareunia 19719552 N94 .10 [id number] MD ELEN Martinez MD [address] [place] [address],[place] [address] 10/24/2023 10:38:57 10/24/2023 15:51:48 Menopausal syndrome 051645463 N95.1 N95.2 Atrophic vaginitis 81673 000 N95.2 Specialize d medical examination 48652606 Z01.419 Screening for malignant neoplasm of rectum 792339131 Z12.12 Screening mammography 24 633586 Z12.31 [id number] MD ELEN Martinez MD [address] [place] [address],[place] [address] 07/03/2024 13:11:22 07/03/2024 15:04:30 Cyst of ovary 90202215 N83.202 At high [facility] for malignant neoplasm of breast 3165016699 64466 Z91.89 Anxiety 63372987 F41.9 Health Concerns Section Related Observation LastModified by Organization Detai ls LastModified Time None Recorded Concern Status LastModified by Organization Details LastModified Time None Recorded Advance Directives Directive None Recorded Payers Encounter Date Sequence Insurance Name Policy Number Policy Oliva Covered Member ID Oliva Member ID Guarantor Name 10/21/2022 1 [place] ([facility] [id number] Kahlil Polastry [id number] Yoana Polastry 12/02/2022 1 [place] [id number] Kahlil Polastry [id number] Yoana Polastry 06/07/2023 1 [place] [id number] Kahlil Polastry [id number] 78 Yoana Polastry 10/24/2023 1 [place] [id number] Kahlil Polastry [id number] 78 Yoana Polastry 07/03/2024 1 [place] [employer] WALKER ([facility]) [id number] Kahlil Polastry [id number] 78 Yoana Polastry Notes Date Note Type Note Provider Name [...] specimen, 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 Elen Spangler MD [address] [facility],[address], [place], [address], [place] - [facility], 10/21/2022 09:25:53 12/02/2022 text/html This visit is a phone telehealth visit. The patient consented to the visit by phone.The patient was at home at the time of the call and the provider and patient were the only people on the line.I was at [address] [facility], [address], [place], [place], at the time of the call. [...] and follow up with my PCP, my COMPETITIVE INTELLIGENCE ANALYST and my surgeon from my hysterectomy.?I am hoping that you can help me figure out this pain that I am having bc it? s very concerning to me. I want to make sure I? m doing everything to get to the bottom of this pain. Elen Spangler MD [address] [facility],[address], [place], [address], [facility] - [facility] in [facility], 12/02/2022 11:32:36 06/07/2023 text/html This visit is a phone telehealth visit. The patient consented to the visit by phone. The patient was at work at the time of the call and the provider and patient were the only people on the line. I was at [address] [facility], [address], [place], [place], at the time of the call. [...] one remaining ovary. Elen Spangler MD [address] [facility],[address], [place], [address], [place] - [facility], 06/07/2023 11:59:25 10/24/2023 text/html She is here [...] morning for that. Elen Spangler MD [address], [place], [address], [place] - [facility], 10/24/2023 12:01:56 07/03/2024 text/html She is here [...] MD [address], [place], [address], [facility] - [facility], 07/03/2024 15:00:19 OBGyn Episode No OBEpisode recorded.
--- OUTSIDE RECORDS SUMMARY | 2024-07-06 12:12 | XMS_ITS | Continuity of Care Document ---
Author Organization [place] [facility],, ELEN GREGORY MD Address [address] [address] Care Team Providers Care Program Director Scouting Name Role Phone HAIR CHOUTIFFANYRAJEEV Primary Care [...] osis, please assess left ovary 2024 025 [facility], [address], [address], [place], [address], 07/06/2024 09:22:49 Medication Orders None recorded. Patient TargetsNo targets recorded. Patient Instructions Encounter Date Encounter Id Patient Instructions Last Modified By Organization Details Last Modified Time 07/03/2024 [id number] She is here for follow up after [...] eral No observ ation record ed. [email or web address] [facility] [address], [place], [address], 07/03/2024 13:44:30 06/23/19 25 06/17/2024 MRI, pelvi s, w/ contr ast No observ ation record ed. [facility] [address], [place], [address], 06/22/2024 08:50:27 07/05/19 25 MAMMO , diagn ostic , digit al, unila teral No observ ation record ed. BARCODE [facility] Orders [address], [place], [address], 07/04/2024 07:22:23 07/07/19 25 07/05/2024 US, pelvi s, trans abdom inal + trans vagin al No observ ation record ed. [email or web address] [facility] [address], [place], [address], 07/06/2024 09:50:19 Result Notes None recorded. Problems Name Problem SNOMED Code Status Onset Date Resolution Date Notes Provider Name and Address Organization Details Recorded Time Endometrios is (clinical) 728288791 Active 2021 Apple villalobos [place] [facility], 2 15:09:24 Anxiety 62163224 Active 2021 Apple villalobos [place] [facility], 2 15:09:35 History of endometrios is 4937243171988 4107 Active 2021 Elen Gregory MD [address], [place], [address], [place] [facility], 2 15:47:20 Family history of malignant neoplasm of breast in first degree relative 076560686 Active 2021 Elen Gregory MD [address], [place], [address], [place] [facility], 2 11:54:08 Family history of malignant neoplasm of male breast 305609602 Active 2021 Elen Gregory MD [address], [place], [address], [place] [facility], 2 11:55:02 At high risk for malignant neoplasm of breast 1776606566059 02 Active 2021 [facility] 23.8% Elen Gregory MD [address], [place], [address], [place] [facility], 13:56:26 Atrophic vaginitis 01546308 Active 2023 Elen Gregory MD [address], [place], [address], [place] [facility], 4 10:54:35 Dyspareunia 51439875 Active 2023 Elen Gregory MD [address], [place], [address], [place] [facility], 4 11:07:40 Problem Notes None recorded. Procedures Surgical History Date Name Laterality Status Provider Name and Address Organization Details Recorded Time 06/02/19 25 Most Recent Mammogram completed Brianna Meza in [facility], 07/03/2024 13:28:13 07/21/19 22 Hysterectomy completed Apple Meza in [facility], 10/20/2021 14:52:17 repair of incisional hernia completed Brianna Meza in [facility], 10/16/2021 11:14:40 section completed Brianna Meza in [facility], 10/16/2021 11:14:53 lumpectomy of breast completed Brianna Meza in [facility], 10/16/2021 11:15:11 leg repair completed Apple Meza in [facility], 10/20/2021 15:14:08 Nipple/areola reconstruction completed Apple Meza in [facility], 10/20/2021 15:12:50 Dilation and Curettage completed Brianna Meza in [facility], 10/16/2021 11:16:51 Tonsillectomy completed Brianna Meza in [facility], 10/16/2021 11:17:35 orthognathic operation of mandible completed Apple Mzea in [facility], 10/20/2021 15:13:21 procedure on back completed Amira Rao [place] Meza in [facility], 10/20/2021 15:14:52 Imaging Results None recorded. Procedure Notes None recorded. Medical Equipment None Reported. Allergies Allergen ID Allergen Name Allergen Category Reaction Reaction Severity Criticality Documentation Date Start Date Code Code System Note Provider Name and Address Organization Details Recorded Time 33528 Aleve medicatio n other Not available Not available 10/16/2021 34672 1 RxNorm tongu e swell ing Brianna Meczywor null [place] [facility], 2 11:24:54 19529 Bactrim medicatio n hives Not available Not available 10/16/2021 25805 9 RxNorm Brianna [place]eczywor [place] [facility], 2 11:25:08 03803 Biaxin medicatio n hives Not available Not available 10/16/2021 40654 9 RxNorm Brianna Meczywor null [place] [facility], 2 11:25:25 57857 adhesive tape environme nt,medica tion Not available Not available Not available 10/16/2021 72810 UNK paper skin peels Brianna Meczywor null [place] [facility], 2 11:25:46 66297 Zoloft medicatio n facial swelling Not available Not available 10/16/2021 80768 RxNorm Brianna Meczywor [place] [facility], 2 11:26:28 03459 morphine medicatio n dyspnea hives Not available Not available Not available 10/16/2021 7052 RxNorm Brianna Meczywor null, [place] [facility], 2 11:26:51 99325 Product containin g penicilli n (product) medicatio n hives Not available Not available 10/16/2021 34511 8001 SNOMED Brianna Meczywor null [place] [facility], 2 11:27:17 94197 Substance with sulfonami de structure and antibacte rial mechanism of action (substanc e) medicatio n hives severe high 10/20/2021 45027 8003 SNOMED Apple villalobos [place] [facility], 15:05:15 Medications Name Sig Start Date Stop [...] Updated DateTime 5 158.75 cm 24.9 kg/m2 12532.4 7 g 85 /min 110 mm[Hg] 51 mm[Hg] Brianna Miller [place] - [facility], 13:27:06 Social History Question Answer Notes LastModified by Organizat ion Details LastModified Time Tobacco Smoking Status Never Smoker Brianna villalobos [place] [facility], 10/16/2021 11:20:34 What Is Your Level Of [...] Or The Highest Degree You Have Received? [id number] Information not available 10/20/2021 Who Is Your Employer? 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 Information not available 10/16/2021 Are There Any [...] Anxious, Or Unable To Sleep At Night)? [id number] Information not available 10/20/2021 Do You Use [...] Problems N Kidney or Bladder Problems N Depression N GI Problems N Lung Disease N Defects or Inherited Disease N Anemia N History of Ovarian Cancer N History of Breast Cancer N PAUL exposure N BRCA testing in past N Osteopenia N Psychiatric Illness N Diabetes N Anxiety Disorder N Arthritis N Headaches or Migraines N [...] completed Apple villalobos [place] [facility], 10/20/2021 15:08:14 COVID-19, mRNA, LNP-S, PF, 100 mcg/0.5mL dose or 50 mcg/0.25mL dose 1 completed Apple villalobos [place] [facility], 10/20/2021 15:08:28 COVID-19, mRNA, LNP-S, PF, 100 mcg/0.5mL dose or 50 mcg/0.25mL dose 1 completed Apple villalobos [place] [facility], 10/20/2021 15:08:39 Influenza, split virus, quadrivalent, preservative 1 completed Apple villalobos [place] [facility], 10/20/2021 15:08:50 COVID-19, mRNA, LNP-S, PF, 30 mcg/0.3 mL dose 1 completed Brianna Meczywor null, [place] [facility], 03/05/2022 13:26:19 Influenza, MDCK, quadrivalent, PF 7 completed Brianna Meczywor null[place] [facility], 03/05/2022 13:26:19 Influenza, MDCK, quadrivalent, PF 0 completed Brianna Meczywor null, [place] [facility], 03/05/2022 13:26:19 COVID-19, mRNA, LNP-S, PF, 30 mcg/0.3 mL dose 1 completed Brianna Meczywor null, [place] [facility], 03/05/2022 13:26:19 Influenza, split virus, quadrivalent, PF 1 completed Brianna Meczywor null, [place] [facility], 03/05/2022 13:26:19 Influenza, split virus, trivalent, preservative 6 completed Brianna Meczywor [place] [facility], 03/05/2022 13:26:19 COVID-19, mRNA, LNP-S, PF, 30 mcg/0.3 mL dose 1 completed Brianna Meczywor null, [place] [facility], 03/05/2022 13:26:19 Influenza, MDCK, quadrivalent, PF 9 completed Brianna Meczywor null[place] [facility], 03/05/2022 13:26:19 Influenza, MDCK, quadrivalent, PF 8 completed Brianna Meczywor null, [place] [facility], 03/05/2022 13:26:19 influenza, unspecified formulation 2 completed Brianna Meczywor null, [place] [facility], 03/05/2022 13:27:03 Past Encounters Encounter ID Performer Location Encounter Start Date Encounter Closed Date Diagnosis/Indication Diagnosis SNOMED-CT Code Diagnosis ICD10 Code Diagnosis Note [id number] MD ELEN Martinez MD [address] [facility] [address] [place] [address] 07/03/2024 13:11:22 07/03/2024 15:04:30 Cyst of ovary 72831999 N83.202 At [facility] for malignant neoplasm of breast 7006313044 07972 Z91.89 Anxiety 30870139 F41.9 Health Concerns Section Related Observation LastModified by Organization Detai ls LastModified Time None Recorded Concern Status LastModified by Organization Details LastModified Time None Recorded Payers Encounter Date Sequence Insurance Name Policy Number Policy Oliva Covered Member ID Oliva Member ID Guarantor Name 07/03/2024 1 [place] [facility] [id number] Kahlil Goncalves [id number] Yoana Goncalves Notes Date Note Type [...] since the surgery. Elen Gregory MD [address] [facility],[address], [place], [address], [place] [facility], 07/03/2024 15:00:19 OBGyn Episode No OBEpisode recorded.
--- OUTSIDE RECORDS SUMMARY | 2024-07-06 12:12 | XMS_ITS | Clinical Summary ---
Author Organization [facility] Address [address] [place] [address] Care Team Providers Care Auto Collision Repair Instructor Name Role Phone Lexa Carmona MD Primary Care Provider [phone] Allergies Active Allergy Reactions Criticality Noted Date [...] patient's age to complete this topic Insurance [facility] - O Care Teams Auto Collision Repair Instructor Relationship Specialty Start Date End Date Lexa Carmona MD [address] [place] [address] PCP - General Internal Medicine 12/09/22
--- OUTSIDE RECORDS SUMMARY | 2024-07-06 12:12 | XMS_ITS ---
Author Organization [facility] Address [address] [place] [address] Care Team Providers Care Car Wash Supervisor Name Role Phone Mary Sawyer Unavailable [phone] REASON FOR VISIT RE:MEDICATION Encounters Encounter Location Date Provider Diagnosis [address] [place] [address] 07/06/2024 Maryesa Sawyer PLAN OF TREATMENT Next Appt Details Provider Name:Mary Sawyer, 0 07/30/2024 08:30:00 AM, [address], [address], [place], [address], Provider Name:Mary Sawyer, 0 08/30/2024 08:00:00 AM, [address], [address], [place], [address], Progress Notes * Candelaria RAMIREZOB:1979 (44 yo F)Acc No.[id number]:07/06/2024 Patient:??ASHLEY Yoana :1980?Age:44 Y?Sex:Fe male Address: [place] [address] * true * Date:??
--- OUTSIDE RECORDS SUMMARY | 2024-07-06 12:12 | XMS_ITS ---
Author Organization [facility] Address [address] [place] [address] Care Team Providers Care Glass Furnace Tender Name Role Phone Mary Sawyer Unavailable [phone] REASON FOR VISIT RE:RE:MEDICATION Encounters Encounter Location Date Provider Diagnosis [address] [place] [address] 07/06/2024 Mary Sawyer PLAN OF TREATMENT Next Appt Details Provider Name:Mary Sawyer, 0 07/30/2024 08:30:00 AM, [address], [address], [place], [address], Provider Name:Mary Sawyer, 0 08/30/2024 08:00:00 AM, [address], [address], [place], [address], Progress Notes * Candelaria RAMIREZOB:1979 (44 yo F)Acc No.[id number]:07/06/2024 Patient:??ASHLEYKainYoana :1980?Age:44 Y?Sex:Fe male Address: [place] [address] * true * Date:??
--- OUTSIDE RECORDS SUMMARY | 2024-07-06 12:12 | XMS_ITS | Patient Health Record ---
Author Organization [facility] Address [address] [place] [address] Care Team Providers Care Regulatory Affairs Spec Name Role Phone Mary Sawyer Unavailable [phone] ERLINGENNA LACEY Unavailable [phone] ALLERGIES Allergen (clinical drug ingredient) Drug/Non Drug [...] Duration) Notes Start Date End Date Status ZyrTEC 10 MG 1 tablet Orally Once a day Active Zepbound 7.5 MG/0.5ML 0.5 mL Subcutaneou s once weekly for 30 days Active Estradiol 1 MG 1 tablet Orally Once a day Active Multi Vitamin Active Zoloft 50 MG 1 tablet Orally Once a day a night Active SOCIAL HISTORY Tobacco Use: Social History [...] due to excess calories (E66.09) Active confirmed 702953704 Problem Vitamin D deficiency (E55.9) Active confirmed Vitamin D deficiency (87818954) Problem Body mass index [BMI] 31.0-31.9, adult (Z68.31) Active confirmed 505693334 Problem Endometriosis (N80.9) Active confirmed 844390713 Problem BMI 29.0-29.9,adult (Z68.29) Active confirmed 447024668 Problem BMI 28.0-28.9,adult (Z68.28) Active confirmed 884139627 Problem Anemia due to vitamin B12 deficiency, unspecified B12 deficiency type (D51.9) Active confirmed Vitamin B>12< deficiency anaemia (17926554) Problem BMI 27.0-27.9,adult (Z68.27) Active confirmed 563338858 Problem BMI 30.0-30.9,adult (Z68.30) Active confirmed 850647429 Problem Overweight (BMI 25.0-29.9) (E66.3) Active confirmed 431200261 Problem Elevated lipids (E78.5) Active confirmed Elevated fasting lipid profile (428053200008) VITAL SIGNS Heart Rate 84 /min 06/26/2024 Blood pressure diastolic 60 mm Hg 06/26/2024 Oximetry 98 % 06/26/2024 Height 62 in 06/26/2024 Blood pressure systolic 100 mm Hg 06/26/2024 Weight 142 lbs 06/26/2024 BMI 25.97 kg/m2 06/26/2024 Encounters Encounter Location Date Provider Diagnosis [facility] [address] [place] [phone] 09/15/[address] [facility] [address] [place] [address] 10/10/2023 GENNA KERNIgnacio [address] [place] [address] 11/22/2023 Mary Svrcek [address] [place] [address] 02/03/2024 GENNA ARREOLA Other obesity due to excess calories E66.09 [address] [place] [address] 02/10/2024 GENNA ARREOLA [address] [place] [address] 03/28/2024 Mary Svrcek [address] [place] [address] 04/30/[address] [facility] [address] [facility] [address] [address] 05/08/2024 GENNA [facility] [address] 06/15/2024 [facility] 234 299 [facility] 234 [place], [place] 07/06/2024 [facility] 119 299 [facility] 119 [place] [address] 08/01/2023 Mary Svrcek Other obesity due to excess calories E66.09 ; BMI 28.0-28.9,adult Z68.28 ; Endometriosis N80.9 and Weight loss counseling, encounter for Z71.3 [address] 08/31/2023 Mary Svrcek Other obesity due to excess calories E66.09 ; BMI 27.0-27.9,adult Z68.27 ; Endometriosis N80.9 and Weight loss counseling, encounter for Z71.3 [address] 10/20/2023 Mary Svrcek Other obesity due to excess calories E66.09 ; BMI 27.0-27.9,adult Z68.27 ; Endometriosis N80.9 and Weight loss counseling, encounter for Z71.3 [address] 12/27/2023 Mary Svrcek Other obesity due to excess calories E66.09 ; BMI 26.0-26.9,adult Z68.26 ; Endometriosis N80.9 and Weight loss counseling, encounter for Z71.3 [address] 02/21/2024 Mary Svrcek Other obesity due to excess calories E66.09 ; BMI 26.0-26.9,adult Z68.26 ; Endometriosis N80.9 ; Weight loss counseling, encounter for Z71.3 and Elevated lipids E78.5 [facility] [address] 04/11/2024 Mary Svrcek Other obesity due to excess calories E66.09 ; BMI 26.0-26.9,adult Z68.26 ; Endometriosis N80.9 and Weight loss counseling, encounter for Z71.3 [address] 05/24/2024 Mary Svrcek BMI 25.0-25.9,adult Z68.25 ; Overweight (BMI 25.0-29.9) E66.3 ; Endometriosis N80.9 and Weight loss counseling, encounter for Z71.3 [address] [place] [address] 06/26/2024 Mary Svrcek BMI 25.0-25.9,adult Z68.25 ; Overweight (BMI 25.0-29.9) E66.3 ; Endometriosis N80.9 ; Weight loss counseling, encounter for Z71.3 ; Vitamin D deficiency E55.9 and Anemia due to vitamin B12 deficiency, unspecified B12 deficiency type D51.[address] [facility] [address] [facility] [address] [place] [address] 07/13/2023 Mary Svrcek Other obesity due to excess calories E66.[address] [facility] [address] [facility] [address] [address] 09/12/2023 Mary Svrcek Other obesity due to excess calories E66.09 [address] [facility] [address] [address] 11/16/2023 Mary Svrcek [address] [facility] [address] [address] 06/25/[address] [facility] [address] [facility] [address] [address] 07/13/2023 Mary Svrcek Other obesity due to excess calories E66.[address] [facility] 119 [address] [facility] [address] [address] 07/15/2023 Mary Svrcek Other obesity due to excess calories E66.[address] [facility] [address] [facility] [address] [place] [address] 07/18/[address] [facility] [address] [facility] [address] [place] [address] 09/21/[address] [facility] [address] [facility] [address] [place] [address] 09/21/[address] [facility] [address] [facility] [address] [address] 09/21/[address] [facility] [address] [facility] [address] [place] [address] 09/21/[address] [facility] [address] [facility] [address] [place], [place] 10/03/[address] [facility] [address] [facility] [address] [place], [place] 10/03/[address] [facility] [address] [facility] [address] [place], [place] 12/06/[address] [facility] [address] [facility] [address] [place] [address] 06/25/[address] [facility] [address] [facility] [address] [place], [place] 06/29/[address] [facility] [address] [facility] [address] [place] [address] 07/02/[address] [facility] [address] [facility] [address] [place] [address] 07/02/[address] [facility] [address] [facility] [address] [place] [address] 07/06/[address] [facility] [address] [facility] [address] [place], [place] 07/06/[address] [facility] [address] [facility] [address] [place], [place] 07/06/[address] [facility] [address] [facility] [address] [place] [address] 07/06/[address] [facility] [address] [facility] [address] [place], [place] 07/06/2024 Mary Svrcek ASSESSMENTS Encounter Date Diagnosis Assessment Notes Treatment Notes Treatment Clinical Notes Section Notes 07/13/2023 Other obesity due to excess calories (ICD-10 - E66.09) 07/13/2023 Other obesity due to excess calories (ICD-10 - E66.09) 07/15/2023 Other obesity due to excess calories (ICD-10 - E66.09) 08/01/2023 Other obesity due to excess calories (ICD-10 - E66.09) #Obesity. 5/13/24: 156.9 lbs, BMI 28.5 She is doing [...] Currently on estradiol. Managed by PCP and RAILROAD CAR REPAIR SUPERVISOR. The patient will continue exercise regimen with [...] Dictation was accomplished with the use of ugichem voice recognition software, prone to medical misidentifications [...] Currently on estradiol. Managed by PCP and RAILROAD CAR REPAIR SUPERVISOR. The patient will continue exercise regimen with [...] Dictation was accomplished with the use of ugichem voice recognition software, prone to medical misidentifications [...] Currently on estradiol. Managed by PCP and RAILROAD CAR REPAIR SUPERVISOR. The patient will continue exercise regimen with [...] Dictation was accomplished with the use of ugichem voice recognition software, prone to medical misidentifications [...] Currently on estradiol. Managed by PCP and RAILROAD CAR REPAIR SUPERVISOR. The patient will continue exercise regimen with [...] Dictation was accomplished with the use of ugichem voice recognition software, prone to medical misidentifications [...] Currently on estradiol. Managed by PCP and RAILROAD CAR REPAIR SUPERVISOR. The patient will continue exercise regimen with [...] Dictation was accomplished with the use of ugichem voice recognition software, prone to medical misidentifications [...] Currently on estradiol. Managed by PCP and RAILROAD CAR REPAIR SUPERVISOR. The patient will continue exercise regimen with [...] Dictation was accomplished with the use of ugichem voice recognition software, prone to medical misidentifications [...] Currently on estradiol. Managed by PCP and RAILROAD CAR REPAIR SUPERVISOR. The patient will continue exercise regimen with [...] Dictation was accomplished with the use of ugichem voice recognition software, prone to medical misidentifications [...] Currently on estradiol. Managed by PCP and RAILROAD CAR REPAIR SUPERVISOR. The patient will continue exercise regimen with [...] Dictation was accomplished with the use of ugichem voice recognition software, prone to medical misidentifications [...] Currently on estradiol. Managed by PCP and RAILROAD CAR REPAIR SUPERVISOR. The patient will continue exercise regimen with [...] Dictation was accomplished with the use of ugichem voice recognition software, prone to medical misidentifications [...] Currently on estradiol. Managed by PCP and RAILROAD CAR REPAIR SUPERVISOR. The patient will continue exercise regimen with [...] Dictation was accomplished with the use of ugichem voice recognition software, prone to medical misidentifications [...] Currently on estradiol. Managed by PCP and RAILROAD CAR REPAIR SUPERVISOR. The patient will continue exercise regimen with [...] Dictation was accomplished with the use of ugichem voice recognition software, prone to medical misidentifications [...] Currently on estradiol. Managed by PCP and RAILROAD CAR REPAIR SUPERVISOR. The patient will continue exercise regimen with [...] Dictation was accomplished with the use of ugichem voice recognition software, prone to medical misidentifications [...] Currently on estradiol. Managed by PCP and RAILROAD CAR REPAIR SUPERVISOR. The patient will continue exercise regimen with [...] Dictation was accomplished with the use of ugichem voice recognition software, prone to medical misidentifications [...] Currently on estradiol. Managed by PCP and RAILROAD CAR REPAIR SUPERVISOR. The patient will continue exercise regimen with [...] Dictation was accomplished with the use of ugichem voice recognition software, prone to medical misidentifications [...] Currently on estradiol. Managed by PCP and RAILROAD CAR REPAIR SUPERVISOR. The patient will continue exercise regimen with [...] Dictation was accomplished with the use of ugichem voice recognition software, prone to medical misidentifications [...] Currently on estradiol. Managed by PCP and RAILROAD CAR REPAIR SUPERVISOR. The patient will continue exercise regimen with [...] Dictation was accomplished with the use of ugichem voice recognition software, prone to medical misidentifications [...] Currently on estradiol. Managed by PCP and RAILROAD CAR REPAIR SUPERVISOR. The patient will continue exercise regimen with [...] Dictation was accomplished with the use of ugichem voice recognition software, prone to medical misidentifications [...] Currently on estradiol. Managed by PCP and RAILROAD CAR REPAIR SUPERVISOR. The patient will continue exercise regimen with [...] Dictation was accomplished with the use of ugichem voice recognition software, prone to medical misidentifications [...] Currently on estradiol. Managed by PCP and RAILROAD CAR REPAIR SUPERVISOR. The patient will continue exercise regimen with [...] Dictation was accomplished with the use of ugichem voice recognition software, prone to medical misidentifications [...] Currently on estradiol. Managed by PCP and RAILROAD CAR REPAIR SUPERVISOR. The patient will continue exercise regimen with [...] Dictation was accomplished with the use of ugichem voice recognition software, prone to medical misidentifications [...] Currently on estradiol. Managed by PCP and RAILROAD CAR REPAIR SUPERVISOR. The patient will continue exercise regimen with [...] Dictation was accomplished with the use of ugichem voice recognition software, prone to medical misidentifications [...] Currently on estradiol. Managed by PCP and RAILROAD CAR REPAIR SUPERVISOR. The patient will continue exercise regimen with [...] Dictation was accomplished with the use of ugichem voice recognition software, prone to medical misidentifications [...] Currently on estradiol. Managed by PCP and RAILROAD CAR REPAIR SUPERVISOR. The patient will continue exercise regimen with [...] Dictation was accomplished with the use of ugichem voice recognition software, prone to medical misidentifications [...] Currently on estradiol. Managed by PCP and RAILROAD CAR REPAIR SUPERVISOR. The patient will continue exercise regimen with [...] Dictation was accomplished with the use of ugichem voice recognition software, prone to medical misidentifications [...] Currently on estradiol. Managed by PCP and RAILROAD CAR REPAIR SUPERVISOR. The patient will continue exercise regimen with [...] Dictation was accomplished with the use of ugichem voice recognition software, prone to medical misidentifications [...] Currently on estradiol. Managed by PCP and RAILROAD CAR REPAIR SUPERVISOR. The patient will continue exercise regimen with [...] Dictation was accomplished with the use of ugichem voice recognition software, prone to medical misidentifications [...] Currently on estradiol. Managed by PCP and RAILROAD CAR REPAIR SUPERVISOR. The patient will continue exercise regimen with [...] Dictation was accomplished with the use of ugichem voice recognition software, prone to medical misidentifications [...] Currently on estradiol. Managed by PCP and RAILROAD CAR REPAIR SUPERVISOR. The patient will continue exercise regimen with [...] Dictation was accomplished with the use of ugichem voice recognition software, prone to medical misidentifications [...] Currently on estradiol. Managed by PCP and RAILROAD CAR REPAIR SUPERVISOR. The patient will continue exercise regimen with [...] Dictation was accomplished with the use of ugichem voice recognition software, prone to medical misidentifications [...] Currently on estradiol. Managed by PCP and RAILROAD CAR REPAIR SUPERVISOR. The patient will continue exercise regimen with [...] Dictation was accomplished with the use of ugichem voice recognition software, prone to medical misidentifications [...] Currently on estradiol. Managed by PCP and RAILROAD CAR REPAIR SUPERVISOR. The patient will continue exercise regimen with [...] Dictation was accomplished with the use of ugichem voice recognition software, prone to medical misidentifications [...] Currently on estradiol. Managed by PCP and RAILROAD CAR REPAIR SUPERVISOR. The patient will continue exercise regimen with [...] Dictation was accomplished with the use of ugichem voice recognition software, prone to medical misidentifications [...] Currently on estradiol. Managed by PCP and RAILROAD CAR REPAIR SUPERVISOR. The patient will continue exercise regimen with [...] Dictation was accomplished with the use of ugichem voice recognition software, prone to medical misidentifications [...] Currently on estradiol. Managed by PCP and RAILROAD CAR REPAIR SUPERVISOR. The patient will continue exercise regimen with [...] Dictation was accomplished with the use of ugichem voice recognition software, prone to medical misidentifications [...] Currently on estradiol. Managed by PCP and RAILROAD CAR REPAIR SUPERVISOR. The patient will continue exercise regimen with [...] Dictation was accomplished with the use of ugichem voice recognition software, prone to medical misidentifications [...] VITAMIN D,25-OH,TOTAL,IA 06/26/2024 Next Appt Details Provider Name:Mary Sawyer, 0 07/30/2024 08:30:00 AM, [address], [address], Provider Name:Mary Sawyer, 0 08/30/2024 08:00:00 AM, 299 [facility], [address], [address], Insurance Providers Payer Name Payer Address Payer Phone Subscriber Number Group Number Insured Name Patient Relationship to Insured Coverage Start Date Coverage End Date [facility] [address] [place] [address] [phone] [id number] [phone] Yoana Goncalves Self - patient is [...]
--- OUTSIDE RECORDS SUMMARY | 2024-07-06 12:12 | XMS_ITS ---
Author Organization [facility] Address [address] [place] [address] Care Team Providers Care Water Resources Project Manager Name Role Phone Mary Sawyer Unavailable [phone] REASON FOR VISIT RE:RE:MEDICATION Encounters Encounter Location Date Provider Diagnosis [address] [facility] [address] [facility] [place] [address] 07/06/2024 Mary Sawyer PLAN OF TREATMENT Next Appt Details Provider Name:Mary Sawyer, 0 07/30/2024 08:30:00 AM, [address], [address], [place], [address], Provider Name:Mary Sawyer, 0 08/30/2024 08:00:00 AM, [address], [address], [place], [address], Progress Notes * Candelaria RAMIREZOB:1979 (44 yo F)Acc No.[id number]:07/06/2024 Patient:??ASHLEYKainYoana :1980?Age:44 Y?Sex:Fe male Address: [place] [address] * true * Date:??
--- OUTSIDE RECORDS SUMMARY | 2024-07-06 12:12 | XMS_ITS | Clinical Summary ---
Author Organization [facility] Address [address] [place] [address] Care Team Providers Care Host/Hostess Head Name Role Phone Jer Ho Primary Care Provider [phone] Allergies Active Allergy Reactions Criticality Noted Date [...] patient's age to complete this topic Insurance [facility] FEE FOR SERVICE HMO Care Teams Host/Hostess Head Relationship Specialty Start Date End Date Jer Ho [facility] [address] [place] [phone] PCP - General Internal Medicine 11/11/15
[2024-07-06 12:15] LABS: Ferritin 181 ng/mL (10-250); TSH reflex Free T4 1.44 uIU/mL (0.32-4.0)
[2024-07-06 12:34] LABS: Folate 10.5 ng/mL (> or = 4.0); Vitamin B12 990 pg/mL (200-900)
[2024-07-10 01:08] LABS: Zinc 57 mcg/dL (60-130)
== END 2024-07-06 11:04 | disposition home or self-care (01) ==
LOC: HO.LAB 11:03
PROVIDERS: PCP Nurse Practitioner Family; Visit Provider Nurse Practitioner Family
DX: R74.8 Abnormal levels of other serum enzymes (principal)
CPT/HCPCS: 36415; 82607; 82728; 82746; 83540; 84443; 84630; 85027

== ENCOUNTER 2024-12-20 09:49 | Outpatient (AMB) | payer BC, SELFPAY ==
--- OUTSIDE RECORDS SUMMARY | 2024-10-02 07:15 | XMS_ITS ---
Author Organization [facility] [address] Address [address] [place] [address] Care Team Providers Care Metal Spray Operator Name Role Phone Mary Sawyer Unavailable [phone] Encounters Encounter Location Date Provider Diagnosis [facility] [address] [place] [address] [place] [address] 10/02/2024 Mary Sawyer Plan Of Treatment Next Appt Details Provider Name:Mary Sawyer, 1 08:00:00 AM, [address], [address], [place], [address], Provider Name:aMry Sawyer, 1 02:45:00 PM, [address], [address], [place], [address], Progress Notes * Candelaria RAMIREZOB:1979 (44 yo F)Acc No.[id number]:10/02/2024 Patient: Yoana BAE Provider: Mathew Sawyer PA-C :1980 A ge:44 Y S ex:Female Date:10/02/2024 Address:[address] [place], [place] [address] [place], [place] Subjective: * Chief Complaints: * * Medical History: Objective: * Vitals: Assessment: Plan: * Treatment: * Images: Billing Information: * Visit Code: * Procedure Codes: * Electronic signature of Mary Sawyer PA-C on 12/20/2024 at 10:58 AM EDT Sign off status: Pending * Provider: Mathew Sawyer PA-C Date: 0 10/02/2024 Generated for Jose graves/Jeanette/Abdulaziz on: 1 10:58 AM EDT
--- OUTSIDE RECORDS SUMMARY | 2024-11-08 09:45 | XMS_ITS ---
Author Organization [facility] Address [address] [place] [address] Care Team Providers Care Java Engineer Name Role Phone Digna Mary Unavailable [phone] GENNA ARREOLA Unavailable [phone] Allergies Allergen (clinical drug ingredient) Drug/Non Drug Allergy documented on EMR Reaction Allergy Type Onset Date Status IV Dye (uncoded) anaphylaxis Allergy A ctive paper tape (uncoded) hives Allergy Active sulfamethoxazole / trimethoprim Bactrim anaphylaxis Drug Allergy Active Biaxin anaphylaxis Drug Allergy Activ e morphine Morphine hives Drug Allergy Active Penicillin anaphylaxis Drug Allergy Acti ve REASON FOR VISIT micc given in left arm pt tolerated well Medications Medication SIG (Take, Route, Fr equency, Duration) Notes Start Date End Date Status Multi Vitamin Active ZyrTEC 10 MG 1 tablet Orally Once a day Active Zoloft 50 MG 1 tablet Orally Once a day a night Active Estradiol 1 MG 1 tablet Orally Once a day Active Zepbound 5 MG/0.5ML 0.5 mL Subcutaneous once weekly; Duration: 30 days Active Encounters Encounter Location Date Provider [facility] [address] [facility] 119 [place] [address] 11/08/2024 GENNA ARREOLA Plan Of Treatment Next Appt Details Provider Name:Mary Sawyer, 1 08:00:00 AM, 299 [facility] [address], [place], [address], Provider Name:Mary Sinhaleticia, 1 02:45:00 PM, 299 [facility] [address], [place], [address], Medications Administered Medication Instructions Date of Administration Dosage Notes MICC B12 INJECTION 11/08/2024 1 mL Progress Notes * Candelaria RAMIREZOB:1979 (44 yo F)Acc No.[id number]:11/08/2024 Progress Note Patient: Yoana BAE Provider: Devonte ARREOLA NP :1980 A ge:44 Y S ex:Female Date:11/08/2024 Address: [address] [facility] Subjective: * Chief Complaints: * 1 . Micc given in left arm pt tolerated well. * Medical History: A sthma, Seasonal allergies. * Medications: T aking Zepbound 5 MG/0.5ML Solution Auto-injector 0.5 mL Subcutaneous once weekly , Taking Zoloft 50 MG Tablet 1 tablet Orally Once a day a night , Taking Estradiol 1 MG Tablet 1 tablet Orally Once a day , Taking Multi Vitamin , Taking ZyrTEC 10 MG Tablet Chewable 1 tablet Orally Once a day * Allergies: p aper tape: hives, Biaxin: anaphylaxis, Bactrim: anaphylaxis, Penicillin: anaphylaxis, IV Dye: anaphylaxis, Morphine: hives. Objective: * Vitals: Assessment: Plan: * Treatment: * Therapeutic Injections: MICC B12 INJECTION : 1 mL (Route: Intramuscular) given by Deanna Dumont on left deltoid Care Plan: * Problems: * Images: Billing Information: * Visit Code: * Procedure Codes: Care Plan Details* * Electronic signature of PUMA ARREOLA on 12/20/2024 at 10:58 AM EDT Sign off status: Pending * Provider: Devonte ARREOLA NP Date: 0 11/08/2024 Generated for Jose graves/Jeanette/Abdulaziz on: 1 10:58 AM EDT
--- NOTE | 2024-12-20 09:52 | A.OFFPC_ITS ---
Vital Signs 12/20/24 09:55 Height 5 ft 3 in Weight 135 lb BMI 23.9 BP 122/70 Blood Pressure Location Lt brachial Position Sitting Respiration 12 Pulse 85 Pulse Source Pulse Oximeter Temp 97.1 F Temp Source Oral Pulse Oximetry (%) 99 Oxygen Delivery Method Room Air Intake Visit Reasons: CPE Intake Note: CPE Remanufacturing Technician Required: No Allergies clarithromycin (From Biaxin) Allergy (Severe, Verified 12/20/24 09:58) Swelling morphine Allergy (Severe, Verified 12/20/24 09:58) Swelling Penicillins Allergy (Severe, Verified 12/20/24 09:58) Swelling sulfamethoxazole (From Bactrim) Allergy (Severe, Verified 12/20/24 09:58) Swelling trimethoprim (From Bactrim) Allergy (Severe, Verified 12/20/24 09:58) Swelling Medication List - Last Reconciled 12/20/24 by Ai Bailey, SCREEN PRINTING MACHINE OPERATOR HELPER- cholecalciferol (vitamin D3) 50 mcg PO DAILY cyclobenzaprine 10 mg PO BEDTIME epinephrine 0.3 mg IM Q10M PRN estradiol 1 mg PO DAILY estradiol (Estring) 1 vag ring vaginal [id number] sertraline (Zoloft) 50 mg PO DAILY tirzepatide (weight loss) (Zepbound) 7.5 mg subcut QWEEK Tobacco use date assessed: 12/20/24 Dental Screening Dental Screen Date: 12/20/24 Did you have a dental visit in the last 12 months?: Yes Did you have a dental problem in the last 6 months where you did not have access to dental care?: No Was dental information given to patient?: Patient has dentist HPI HPI Comments History of Present Illness Details 44 y/o F with L ovarian cyst, Vit D def , EUN, family hx of breast ca (mom age 21), varicose veins s/p GEOVANNI with 1 ovary d/t endometriosis, s/p lumpectomy x 2 , jaw surgery, knee surgery Family hx: HLD, family hx of breast ca, Dad of prostate and throat ca Social: , 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, 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 Anxiety: -on sertraline - feels groggy taking in the AM. Varicose Veins: - Appearance concerns,no pain. Worse sin ce wt loss interested in referral for treatment Temporomandibular Joint Disorder (TMJ): - History of jaw surgery; experiencing m uscle tensions bilat would like to see TMJ specialist Obesity: - Recent weight loss, active in manageme nt program. on GLP 1 Acne: - Mild issue, under control using [employer]. - has appt w/ Derm Mar 2025 Zinc def d/t GLP 1 tx w/ oral zinc, due for repeat labs Vit d on supplement Social History - Participates in a weight management pr ogram, logging food and exercise. - Mother of a son, age 16, , involved in family care. - Experiencing some anxiety about son's new driving skills. - No tobacco, alcohol, or drug use repor primo. - Current exercise level and food intake discussed with [facility] Health Optimizer. Review of Systems - General: Reports feeling well overall; no new issues mentioned. - Cardiovascular: Reports occasional anx iety. - Musculoskeletal: Reports cracky legs ; no pain associated. - Dermatologic: Reports acne, manageable with medication. - Neurological/Psych: Reports anxiety; m entions effective anxiety medication. - HEENT: Reports persistent symptoms rel ated to allergies. - Genitourinary: Denies any recent surge ry or changes. Physical Exam General: Well developed, well nourished, in no acute distress. Appears stated age. Head: Normocephalic, atraumatic. Eyes: Pupils are equal, round and reactive to light and accommodation. Conjunctivae are clear. Scleras nonicteric bilat. Vision grossly normal. Ears: TMs clear AU, EACS WNL Nose: Patent, without discharge. Neck: No carotid bruit bilat. Supple, no adenopathy or thyromegaly. Breast: Edu on SBE Lungs: Clear to auscultation bilaterally. No rales, rhonchi or wheeze noted. Good air flow in all calvin. Heart: Regular rate and rhythm. No murmurs, click, rubs or gallops are noted. Abdomen: Bowel sounds present in all quadrants. The abdomen is soft, nontender, with no masses or organomegaly noted. No hernias are noted. : Deferred. 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 Extremities: No clubbing, cyanosis nor edema is noted. Varicose veins noted on both legs, referral to vascular team planned. Neurologic: Gait and station normal. Cranial Nerves 2-12 intact. Motor strength grossly symmetrical and intact. No sensory loss. Balance normal. Skin: No rashes, ulcers, or lesions noted. Turgor is good. Skin color is good. Hair and nails are without abnormalities. Patient reports adult acne spots, using son's acne medication effectively. Psych: Normal eye contact, affect and mood appropriate, and normal interactions. Patient is alert and appropriate to context. Reports feeling more relaxed and less anxious on current medication, considering adjusting timing of sertraline dose. Results Pending Discussion Notes During our discussion, we reviewed the patient's ongoing management of hypertension and current anxiety levels resulting from medication scheduling. I encouraged the patient to trial adjusting her medication timing on non-work days to reduce grogginess and suggested considering splitting doses if needed. We also confirmed weight loss success through structured health optimization. The patient expressed concerns about varicose veins and was receptive to a referral for further evaluation by consumer banker. Similarly, concerns regarding TMJ were noted with a recommendation for specialist review if severe symptoms persist. I provided reassurance and reinforced adherence to existing management protocols for ongoing health maintenance. Patient was given time to ask questions. All questions were answered to their satisfaction. Assessment and Plan 1. Flu shot admin, labs ordered. 2. Anxiety - cont sertraline, try taking earlier or splitting the dose 3. Varicose Veins - Proceed with vascular consult. 4. Temporomandibular Joint Disorder (TMJ ) - Consider specialist for future managem ent. - If referral needed, send portal messag e 5. Obesity - Persist with program and assessment. 6. Acne - Continue existing treatment. Patient Instructions - Try taking sertraline earlier in the e vening or split dosage if necessary. - Schedule vascular referral for varicos e vein assessment. - Stick to the exercise and food log as part of weight management. - Maintain the current acne treatment re blanka. - Follow up in one year for a physical o r sooner if needed. Consent Patient was informed and verbally consented to the use of an ambient scribe for clinic note documentation during this visit. An additional 20 minutes was spent addressing the problem(s) noted at todays visit. This includes time spent before the visit reviewing the chart, time spent during the visit, and time spent after the visit on documentation reviewing laboratory results, diagnostic imaging, medications, performing a medically necessary evaluation, counseling on diagnoses, care coordination, ordering appropriate tests, ordering appropriate medications, review of tests performed by other providers, reporting test results with the patient, communication with other healthcare providers. [facility] Medical History (Updated 12/20/24 @ 10:35 by Ai Bailey [facility]) Asthma Surgical History (Updated 07/05/24 @ 13:06 by Samia Cordero MA) H/O breast reconstruction (~2021) H/O knee surgery H/O oral surgery H/O: hysterectomy (~2022) History of lumpectomy of left breast Previous section Family History (Updated 07/05/24 @ 13:09 by Samia Cordero MA) Mother Asthma High cholesterol Breast cancer Maternal Grandmother High cholesterol Paternal Grandmother HTN (hypertension) Diabetes Father Throat cancer Prostate cancer Maternal Grandfather Stomach cancer Thyroid cancer Social History (Updated 07/05/24 @ 12:24 by Samia Cordero MA) Household Members: Spouse and Children Both parents involved: No Caregiver staying overnight: No Housing: House Are you a primary intensive care ambulance paramedic to a significant other at home: Yes Do you presently have visiting nurse or other home services: No 75 years or older and lives alone: No Alcohol intake: current Alcohol intake frequency: a few times a month Patient Tobacco Use Status: Never used Tobacco e-Cigarette/Vaping Use: Never Used Second Hand Smoke Exposure: No service: No Current occupational status: employed 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 1. Little interest or pleasure in doing things: not at all 2. Feeling down, depressed, or hopeless: not at all 3. Trouble falling or staying asleep, or sleeping too much: not at all 4. Feeling tired or having little energy: not at all 5. Poor appetite or overeating: not at all 6. Feeling bad about yourself - or that you are a failure or have let yourself or your family down: not at all 7. Trouble concentrating on things, such as reading the newspaper or watching television: not at all 8. Moving or speaking so slowly that other people could have noticed. Or the opposite - being so fidgety or restless that you have been moving around a lot more than usual: not at all 9. Thoughts that you would be better off or of hurting yourself in some way: not at all Total score: 0 Depression Screening Interpretation: Negative Depression Screening Done: Yes 34298 - PHQ-9 Billing: Yes Source: Developed by Drs. Rico Espinoza, Desirae Krause, Eric Hall and colleagues, with an educational cherelle from [employer]. Thrive Questionnaire Date Thrive assessed: 12/20/24 I am a: Patient What is your living situation today?: I have a steady place to live Within the past 12 months, did the food you bought not last and you didn't have the money to get more?: Never true Within the past 12 months, did you worry whether your food would run out before you got money to buy more?: Never true Do you have trouble paying for medicines?: No Do you have trouble getting transportation to medical appointments?: No Do you have trouble paying your heating and electricity bill?: No Do you have trouble taking care of your child, family member or friend?: No Do you have trouble with day-to-day activities such as bathing, preparing meals, shopping, managing finances, etc.?: No Are you currently unemployed and looking for a job?: No Are you interested in more education?: No Please select the resources that you would like help with: None Currently or been in a relationship where the following occur: No concerns reported THRIVE Score: 0 AUDIT C Alcohol Use Questionnaire (AUDIT-C) 1. How often do you have a drink containing alcohol?: Never 3. How often do you have six or more drinks on one occasion?: Never Total Score: 0 Score Reviewed/Action Taken: Yes EUN-7 AMB Questionnaire EUN-7 Date EUN - 7 assessed: 12/20/24 Feeling nervous, anxious, or on edge: 0 = Not at all Not being able to stop or control worryin = Not at all Worrying too much about different things: 0 = Not at all Trouble relaxin = Not at all Being so restless that it is hard to sit still: 0 = Not at all Becoming easily annoyed or irritable: 0 = Not at all Feeling afraid as if something awful might happen: 0 = Not at all Total EUN-7 score (0-4 normal; 5-9 mild; 10-14 moderate; 15-21 severe): 0 Source: Developed by Drs. Rico Espinoza, Desirae Krause, Eric Hall and colleagues, with an educational cherelle from [employer]. EUN-7 Assessment Billing EUN-7 Assessment Tool: EUN-7 Assessment 89229 Physical exam (Primary Care) Vital Signs: Last Vital Signs Temp 97.1 F 12/20/24 09:55 Pulse 85 12/20/24 09:55 Resp 12 12/20/24 09:55 BP 122/70 12/20/24 09:55 Pulse Ox 99 12/20/24 09:55 Oxygen Delivery Method Room Air 12/20/24 09:55 BMI result Body Mass Index 23.9 Tobacco/Smoking Status: Tobacco use Status Tobacco use date assessed 12/20/24 12/20/24 09:56 Patient Tobacco Use Status Never used Tobacco 12/20/24 09:56 e-Cigarette/Vaping Use Never Used 12/20/24 09:56 PHQ-9: PHQ-9 Score PHQ-9: Total score 0 12/20/24 10:02 Depression Screening Interpretation: Negative Thrive Assessment: Date of Thrive Assessment Date Thrive assessed 12/20/24 12/20/24 09:56 Currently or been in a relationship where the following occur: No concerns reported Office Procedures Flu Questionnaire Does the patient have a severe egg allergy?: No Does the patient have severe life threatening allergies?: No Does the patient have a fever or illness today?: No Has the patient ever had Guillain-[place] Syndrome?: No Has the patient ever had any past reaction to a flu shot?: No Immunizations Fluarix (PF) 45 mcg (15 mcg x 3)/0.5 mL IM syringe Performing Provider: TOMÁS Wasserman Performing Location: [facility] Administered by: Samia Cordero MA on 12/20/24 10:31 Dose Route Admin Location Dispensed Lot Number Expiration Date NDC Media Analyst 0.5 mL IM Left Deltoid 0.5 mL [id number] 09/17/25 [id number] [employer] VIS Given Date VIS Provided VIS Publication Date 12/20/24 Single Vaccine 24 Eligibility Eligibility Date Funding Source Not [facility] Eligible 12/20/24 Private Coding Level of Care Code Est Pt Level 3 (34760) Est Pt Prev Care 40-64y(16228) Diagnoses Encounter for general adult medical examination without abnormal findings Z00.00 EUN (generalized anxiety disorder) F41.1 Family history of hyperlipidemia Z83.438 Vitamin D deficiency E55.9 Zinc deficiency E60 At high risk for breast cancer Z91.89 Family history of breast cancer Z80.3 Low serum alkaline phosphatase R74.8 History of mammogram Z92.89 History of Papanicolaou smear of cervix Z92.89 Laboratory exam ordered as part of routine general medical examination Z00.00 Mild anemia D64.9 Influenza vaccination administered at current visit Z23 Sprain of temporomandibular joint, initial encounter S03.40XA Encounter type: initial encounter Asymptomatic varicose veins of both lower extremities I83.93 Varicose vein complication: asymptomatic Additional Codes EUN-7 Assessment Billing - EUN-7 Assessment Tool: EUN-7 Assessment 80474 ([id number]) PHQ-9 - 67068 - PHQ-9 Billing: Yes ([id number]) Assessment & Plan Assessment & Plan (1) Encounter for general adult medical examination without abnormal findings: Onset Date: ~12/20/24 Code(s): Z00.00 - Encounter for general adult medical examination without abnormal findings Category: Medical (2) EUN (generalized anxiety disorder): Code(s): F41.1 - Generalized anxiety disorder Category: Medical (3) Family history of hyperlipidemia: Code(s): Z83.438 - Family history of other disorder of lipoprotein metabolism and other lipidemia Category: Medical (4) Vitamin D deficiency: Code(s): E55.9 - Vitamin D deficiency, unspecified Category: Medical (5) Zinc deficiency: Code(s): E60 - Dietary zinc deficiency Category: Medical (6) At high risk for breast cancer: Code(s): Z91.89 - Other specified personal risk factors, not elsewhere classified Category: Medical (7) Family history of breast cancer: Comment: Mom Code(s): Z80.3 - Family history of malignant neoplasm of breast Category: Medical (8) Low serum alkaline phosphatase: Code(s): R74.8 - Abnormal levels of other serum enzymes Category: Medical (9) History of mammogram: Onset Date: ~05/2024 Code(s): Z92.89 - Personal history of other medical treatment Category: Medical (10) History of Papanicolaou smear of cervix: Onset Date: ~10/2024 Code(s): Z92.89 - Personal history of other medical treatment Category: Medical (11) Laboratory exam ordered as part of routine general medical examination: Code(s): Z00.00 - Encounter for general adult medical examination without abnormal findings Category: Medical (12) Mild anemia: Code(s): D64.9 - Anemia, unspecified Category: Medical (13) Influenza vaccination administered at current visit: Code(s): Z23 - Encounter for immunization Category: Medical (14) TMJ (sprain of temporomandibular joint): Code(s): S03.40XA - Sprain of jaw, unspecified side, initial encounter Category: Medical Qualifiers: Encounter type: initial encounter Qualified Code(s): S03.40XA - Sprain of jaw, unspecified side, initial encounter (15) Varicose veins of legs: Code(s): I83.93 - Asymptomatic varicose veins of bilateral lower extremities Category: Medical Qualifiers: Varicose vein complication: asymptomatic Qualified Code(s): I83.93 - Asymptomatic varicose veins of bilateral lower extremities Plan . Orders: Orders Zinc Today D64.9 - Anemia, unspecified, E55.9 - Vitamin D deficiency, unspecified, E60 - Dietary zinc deficiency, R74.8 - Abnormal levels of other serum enzymes Complete Blood Count no Diff Today D64.9 - Anemia, unspecified, E55.9 - Vitamin D deficiency, unspecified, E60 - Dietary zinc deficiency, R74.8 - Abnormal levels of other serum enzymes Comprehensive Met. Panel Today D64.9 - Anemia, unspecified, E55.9 - Vitamin D deficiency, unspecified, E60 - Dietary zinc deficiency, R74.8 - Abnormal levels of other serum enzymes Microalbumin, Random (w Creat) Today D64.9 - Anemia, unspecified, E55.9 - Vitamin D deficiency, unspecified, E60 - Dietary zinc deficiency, R74.8 - Abnormal levels of other serum enzymes Lipid Panel Today D64.9 - Anemia, unspecified, E55.9 - Vitamin D deficiency, unspecified, E60 - Dietary zinc deficiency, R74.8 - Abnormal levels of other serum enzymes Hemoglobin A1c Today D64.9 - Anemia, unspecified, E55.9 - Vitamin D deficiency, unspecified, E60 - Dietary zinc deficiency, R74.8 - Abnormal levels of other serum enzymes Vitamin B12 and Folate Today D64.9 - Anemia, unspecified, E55.9 - Vitamin D deficiency, unspecified, E60 - Dietary zinc deficiency, R74.8 - Abnormal levels of other serum enzymes Vitamin D 25-OH Total Today D64.9 - Anemia, unspecified, E55.9 - Vitamin D deficiency, unspecified, E60 - Dietary zinc deficiency, R74.8 - Abnormal levels of other serum enzymes TSH reflex Free T4 Today D64.9 - Anemia, unspecified, E55.9 - Vitamin D deficiency, unspecified, E60 - Dietary zinc deficiency, R74.8 - Abnormal levels of other serum enzymes Influenza [id number] Immunization Today Z23 - Encounter for immunization Referrals Vascular Surgery Referral I83.93 - Asymptomatic varicose veins of bilateral lo wer extremities Medications: New epinephrine for 2 doses 0.3 mg (0.3 mL) IM Q10M PRN 2 ea 2RF anaphylaxis Refilled sertraline (Zoloft) 50 mg PO DAILY 90 tabs 2RF Patient Instructions: Health screenings for women You should visit your health care provider from time to time, even if you are healthy. The purpose of these visits is to: Screen for medical issues Assess your risk for future medical problems Encourage a healthy lifestyle Update vaccinations and other preventive care services Help you get to know your provider in case of an illness Information Even if you feel fine, you should still see your provider for regular checkups. These visits can help you avoid problems in the future. For example, the only way to find out if you have high blood pressure is to have it checked regularly. High blood sugar and high cholesterol levels also may not have any symptoms in the early stages. A simple blood test can check for these conditions. There are specific times when you should see your provider or receive specific health screenings. The [place] Preventive Services Task Force publishes a list of recommended screenings. Below are screening guidelines for women ages 18 to 39. BLOOD PRESSURE SCREENING Your blood pressure should be checked at least once every 3 to 5 years if: Your blood pressure is in the normal range (top number less than 120 mm Hg and bottom number less than 80 mm Hg) You don't have risk factors for high blood pressure Ask your provider if you need your blood pressure checked more often if: The top number is 120 to 129 mm Hg or the bottom number is 70 to 79 mm Hg You have diabetes, heart disease, kidney problems, are overweight, or have certain other health conditions You have a first-degree relative with high blood pressure You are Black You had high blood pressure during a If the top number is 130 mm Hg or greater or the bottom number is 80 mm Hg or greater, this is considered stage 1 hypertension. Schedule an appointment with your provider to learn how you can reduce your blood pressure. Watch for blood pressure screenings in your area. Ask your provider if you can stop in to have your blood pressure checked. BREAST CANCER SCREENING Experts do not agree about the benefits of breast self-exams in finding breast cancer or saving lives. Talk to your provider about what is best for you. A screening mammogram is not recommended for most women under age 40. Your provider may discuss and recommend mammograms, MRI scans, or ultrasounds if you have an increased risk for breast cancer, such as: A mother or sister who had breast cancer at a young age (most often starting screening earlier than the age the close relative was diagnosed) You carry a high-risk genetic marker CERVICAL CANCER SCREENING Cervical cancer screening should start at age 21 years unless your provider advises otherwise. After the first test: Women ages 21 through 29 should have a Pap test every 3 years. Exoprts do not agree on whether HPV testing is recommended for this age group. Women ages 30 through 65 should be screened with either a Pap test every 3 years or the HPV test every 5 years or both tests every 5 years (called cotesting ). Women who have been treated for precancer (cervical dysplasia) should continue to have Pap tests for 20 years after treatment or until age 65, whichever is longer. If you have had your uterus and cervix removed (total hysterectomy), and you have not been diagnosed with cervical cancer or precancer (high grade cervical neoplasia), you do not need cervical cancer screening. CHOLESTEROL SCREENING Cholesterol screening should begin at: Age 45 for women with no known risk factors for coronary heart disease Age 20 for women with known risk factors for coronary heart disease Repeat cholesterol screening should take place: Every 5 years for women with normal cholesterol levels More often if changes occur in lifestyle (including weight gain and diet) More often if you have diabetes, heart disease, kidney problems, or certain other conditions DIABETES SCREENING You should be screened for diabetes starting at age 35 and then repeated every 3 years if you have no risk factors for diabetes. Screening may need to start earlier and be repeated more often if you have other risk factors for diabetes, such as: You have a first degree relative with diabetes. You are overweight or have obesity. You have high blood pressure, prediabetes, or a history of heart disease. Screening for diabetes should be done if you are planning to become and you are overweight and have other risk factors such as high blood pressure. DENTAL EXAM Go to the dentist once or twice every year for an exam and cleaning. Your dentist will evaluate if you need more frequent visits. EYE EXAM Have an eye exam every 5 to 10 years before age 40. If you have vision problems, have an eye exam every 2 years or more often if recommended by your provider. You should have an eye exam that includes an examination of your retina (back of your eye) at least every year if you have diabetes. IMMUNIZATIONS Commonly needed vaccines include: Flu shot: get one every year. COVID-19 vaccine: ask your provider what is best for you. Tetanus-diphtheria and acellular pertussis (Tdap) vaccine: have one at or after age 19 as one of your tetanus-diphtheria vaccines if you did not receive it as an adolescent. Tetanus-diphtheria: have a booster (or Tdap) every 10 years. Varicella vaccine: receive 2 doses if you never had chickenpox or the varicella vaccine. Hepatitis B vaccine: receive 2, 3, or 4 doses, depending on your exact circumstances. Measles, mumps, and rubella (MMR) vaccine: receive 1 to 2 doses if you are not already immune to MMR. Your provider can tell you if you are immune. Ask your provider about the human papillomavirus (HPV) vaccine if: You have not received the HPV vaccine in the past You have not completed the full vaccine series (you should catch up on this shot) Ask your provider if you should receive other immunizations if you have certain health problems that increase your risk for some diseases such as pneumonia. INFECTIOUS DISEASE SCREENING Women who are sexually active should be screened for chlamydia and gonorrhea up until age 25. Women 25 years and older should be screened for chlamydia and gonorrhea if at high risk. Screening for hepatitis C: All adults ages 18 to 79 should get a one-time test for hepatitis C. people should be screened at every . Screening for human immunodeficiency virus (HIV): All people ages 15 to 65 should get a one-time test for HIV. Depending on your lifestyle and medical history, you may also need to be screened for infections such as syphilis and HIV, as well as other infections. PHYSICAL EXAM All adults should visit their provider from time to time, even if they are healthy. The purpose of these visits is to: Screen for disease Assess your risk of future medical problems Encourage a healthy lifestyle Update your vaccinations and other preventive care services Maintain a relationship with a provider in case of an illness Your height, weight, and BMI should be checked at every exam. During your exam, your provider may ask you about: Depression and anxiety Diet and exercise Alcohol and tobacco use Safety issues, such as using seat belts, smoke detectors, and intimate partner violence Your medicines and risk for interactions SKIN SELF-EXAM Your provider may check your skin for signs of skin cancer, especially if you're at high risk, such as if you: Have had skin cancer before Have close relatives with skin cancer Have a weakened immune system OTHER SCREENING Talk with your provider about colon cancer screening if you have a strong family history of colon cancer or polyps, or if you have had inflammatory bowel disease or polyps yourself. Routine bone density screening of women under 40 is not recommended.
[2024-12-20 09:55] VITALS: BP 122/70; PULSE 85; RESP 12; TEMP 36.2; O2SAT 99; BMI 23.9
--- OUTSIDE RECORDS SUMMARY | 2024-12-20 10:59 | XMS_ITS | Clinical Summary ---
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 Name Role Phone Jer Ho Primary Care Provider [phone] Allergies Active Allergy Reactions Criticality Noted Date [...] 84 11/11/2015 5:53 PM EDT Temperature 36.8 C (98.3 F) 11/11/2015 5:53 PM EDT Respiratory Rate 16 11/11/2015 5:53 PM EDT [...] 01/26/1999 Mammogram/Breast Imaging 2020 COVID-19 Vaccine (1 2023-2 5 season) 2024 Influenza (#1) 2024 Zoster (Shingrix) (1 of 2) 01/26/2030 HPV Vaccine (No Doses Required) Completed Hep A Aged Out No longer eligi ble based on patient's age to complete this topic Hib Aged Out No longer eligi ble based on patient's age to complete this topic Meningococcal ACWY Aged Out No longer eligible based on patient's age to complete this topic Pneumococcal Aged Out No longer eligi ble based on patient's age to complete this topic Insurance [facility] F[facility] FOR SERVICE HMO Care Teams 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
--- OUTSIDE RECORDS SUMMARY | 2024-12-20 10:59 | XMS_ITS | Patient Health Record ---
Author Organization [facility] [address] Address [address] [place] [address] Care Team Providers Care Freight Clerk Name Role Phone Mary Sawyer Unavailable [phone] ERLINGENNA LACEY Unavailable [phone] Allergies Allergen (clinical drug ingredient) Drug/Non Drug Allergy documented on EMR Reaction Allergy Type Onset Date Status IV Dye (uncoded) anaphylaxis Allergy A ctive paper tape (uncoded) hives Allergy Active sulfamethoxazole / trimethoprim Bactrim anaphylaxis Drug Allergy Active Biaxin anaphylaxis Drug Allergy Activ e morphine Morphine hives Drug Allergy Active Penicillin anaphylaxis Drug Allergy Acti ve Results Component Value Reference Range Notes VITAMIN B12 Reviewed date:07/02/2024 01:58:18 PM Interpretation: Performing Lab: Notes/Report: Vitamin B-12 1485 250-900 pcg/mL COMPREHENSIVE METABOLIC PANE L Reviewed date:07/02/2024 01:58:46 [...] g/dL Total Bilirubin 0.8 0.0-1.4 mg/dL VITAMIN D 25 HYDROXY Reviewed date:07/03/2024 02:24:24 PM Interpretation: Performing Lab: Notes/Report: Vit D, 25-Hydroxy 26.8 30.0-80.0 ng/mL LIPID PANEL WITH REFLEX TO D IRECT LDL Reviewed date:07/03/2024 02:23:18 PM Interpretation: Performing Lab: Notes/Report: Cholesterol 222 0-200 mg/dL Triglycerides 53 0-150 mg/dL HDL 80 >=40 mg/dL LDL Calculated 131 0-100 mg/dL VLDL Cholesterol Magdi 10.6 Non HDL Chol. (LDL+VLDL) 142 <145 mg/dL Chol/HDL Ratio 2.8 0.0-4.4 Reason For Referral Diagnosis 1 Other obesity due to excess calories (E66.09) Referred Organization [facility] [address] Referred Provider Mary Sawyer Referred Address [address] [place] [address] [address] ,[place], [place],[address], Referred Provider Specialty Weight Manag ement Referral Priority Routine Medications Medication SIG (Take, Route, Fr equency, Duration) Notes Start Date End Date Status ZyrTEC 10 MG 1 tablet Orally Once a day Active Zoloft 50 MG 1 tablet Orally Once a day a night Active Zepbound 5 MG/0.5ML 0.5 mL Subcutaneous once weekly; Duration: 30 days Active Multi Vitamin Active Estradiol 1 MG 1 tablet Orally Once a day Active Social History Tobacco Use: Social History Observation Description Date Details (start date - stop date) Never Smoker NA - NA Tobacco Use/Smoking Question Answer Notes Are you a nonsmoker Alcohol Screen (Audit-C) Question Answer Notes Did you have a drink contain ing alcohol in the past year? Yes How often did you have a dri nk containing alcohol in the past year? Monthly or less (1 point) Points 1 Interpretation Negative Problems Problem Type SNOMED Code ICD Code Onset Dates Problem Status W/U Status Risk Notes Problem Obesity due to excess calories (669218040) Other obesity due to excess calories (E66.09) Active confirmed Problem Vitamin D deficiency (66750497) Vitamin D deficiency (E55.9) Active confirmed Problem Body mass index 30.00 to 34.99 (039015956664171) Body mass index [BMI] 31.0-31.9, adult (Z68.31) Active confirmed Problem Endometriosis (507123480) Endometriosis (N80.9) Active confirmed Problem BMI 25-29 - overweight (338443207) BMI 29.0-29.9,adult (Z68.29) Active confirmed Problem Body mass index 25-29 - overweight (583561463) BMI 28.0-28.9,adult (Z68.28) Active confirmed Problem Vitamin B>12< deficiency anaemia (19781924) Anemia due to vitamin B12 deficiency, unspecified B12 deficiency type (D51.9) Active confirmed Problem BMI 25-29 - overweight (337599095) BMI 27.0-27.9,adult (Z68.27) Active confirmed Problem Body mass index 30+ - obesity (157070472) BMI 30.0-30.9,adult (Z68.30) Active confirmed Problem Overweight (914407607) Overweight (BMI 25.0-29.9) (E66.3) Active confirmed Problem Elevated fasting lipid profile (471115211978) Elevated lipids (E78.5) Active confirmed Vital Signs Heart Rate 79 /min 12/11/2024 Blood pressure diastolic 60 mm Hg 12/11/2024 Oximetry 99 % 12/11/2024 Height 62 in 12/11/2024 Blood pressure systolic 108 mm Hg 12/11/2024 Weight 132.4 lbs 12/11/2024 BMI 24.21 kg/m2 12/11/2024 Encounters Encounter Location Date Provider Diagnosis [facility] [address] [address] 02/03/2024 GENNA ARREOLA Other obesity due to excess calories E66.09 [facility] [address] [address] 02/10/2024 GENNA ARREOLA [facility] [address] [address] 04/30/2024 GENNA ARREOLA [facility] [address] [address] 06/15/2024 GENNA ARREOLA [facility] [address] 07/06/2024 GEN[facility]REOLA [facility] [address] [facility] [address] [place], [place] 11/08/2024 [facility] [address] 12/27/2023 Mary Svrcek Other obesity due to excess calories E66.09 ; BMI 26.0-26.9,adult Z68.26 ; Endometriosis N80.9 and Weight loss counseling, encounter for Z71.3 [facility] [address] 02/21/2024 Mary Svrcek Other obesity due to excess calories E66.09 ; BMI 26.0-26.9,adult Z68.26 ; Endometriosis N80.9 ; Weight loss counseling, encounter for Z71.3 and Elevated lipids E78.5 [facility] [address] 04/11/2024 Mary Svrcek Other obesity due to excess calories E66.09 ; BMI 26.0-26.9,adult Z68.26 ; Endometriosis N80.9 and Weight loss counseling, encounter for Z71.3 [facility] [address] 05/24/2024 Mary Svrcek BMI 25.0-25.9,adult Z68.25 ; Overweight (BMI 25.0-29.9) E66.3 ; Endometriosis N80.9 and Weight loss counseling, encounter for Z71.3 [facility] [address] 06/26/2024 Mary Svrcek BMI 25.0-25.9,adult Z68.25 ; Overweight (BMI 25.0-29.9) E66.3 ; Endometriosis N80.9 ; Weight loss counseling, encounter for Z71.3 ; Vitamin D deficiency E55.9 and Anemia due to vitamin B12 deficiency, unspecified B12 deficiency type D51.9 [facility] [address] 07/30/2024 Mary Svrcek BMI 25.0-25.9,adult Z68.25 ; Overweight (BMI 25.0-29.9) E66.3 ; Endometriosis N80.9 ; Weight loss counseling, encounter for Z71.3 ; Vitamin D deficiency E55.9 ; Anemia due to vitamin B12 deficiency, unspecified B12 deficiency type D51.9 and Encounter for examination of blood pressure without abnormal findings Z01.30 [facility] [address] [address] 09/13/2024 Mary Svrcek Overweight (BMI 25.0-29.9) E66.3 ; Endometriosis N80.9 ; Weight loss counseling, encounter for Z71.3 ; Vitamin D deficiency E55.9 ; Anemia due to vitamin B12 deficiency, unspecified B12 deficiency type D51.9 and Encounter for examination of blood pressure without abnormal findings Z01.30 [facility] [address] [address] 10/18/2024 Mary Svrcek Endometriosis N80.9 ; Overweight (BMI 25.0-29.9) E66.3 ; Weight loss counseling, encounter for Z71.3 and Encounter for examination of blood pressure without abnormal findings Z01.30 [facility] [address] [address] 12/11/2024 Mary Svrcek Endometriosis N80.9 ; Weight loss counseling, encounter for Z71.3 and Encounter for examination of blood pressure without abnormal findings Z01.30 [facility] [address] [address] 06/25/2024 Mary Svrcek [facility] [address] [address] 07/26/2024 Mary Svrcek [facility] [address] [address] 10/15/2024 Mary Svrcek [facility] [address] [address] 06/25/2024 Mary Svrcek [facility] [address] [address] 06/29/2024 Mary Svrcek [facility] [address] [address] 07/02/2024 Mary Svrcek [facility] [address] [address] 07/02/2024 Mary Svrcek [facility] [address] [address] 07/06/2024 Mary Svrcek [facility] [address] [address] 07/06/2024 Mary Svrcek [facility] [address] [address] 07/06/2024 Mary Svrcek [facility] [address] [address] 07/06/2024 Mary Svrcek [facility] [address] [address] 07/06/2024 Mary Svrcek [facility] [address] [address] 09/06/2024 Mary Svrcek [facility] [address] [address] 09/06/2024 Mary Svrcek [facility] [address] [address] 10/14/2024 Mary Svrcek Assessments Encounter Date Diagnosis (ICD Code) Assessment Notes Treatment Notes Treatment Clinical Notes Section Notes 12/27/2023 Other obesity due to excess calories [...] Currently on estradiol. Managed by PCP and [employer] PROFESSIONAL. The patient will continue exercise regimen with [...] Dictation was accomplished with the use of PadMatcher voice recognition software, prone to medical misidentifications [...] Currently on estradiol. Managed by PCP and [employer] PROFESSIONAL. The patient will continue exercise regimen with [...] Dictation was accomplished with the use of Pad[employer] voice recognition software, prone to medical misidentifications [...] Currently on estradiol. Managed by PCP and [employer] PROFESSIONAL. The patient will continue exercise regimen with [...] Dictation was accomplished with the use of [employer] voice recognition software, prone to medical misidentifications [...] Currently on estradiol. Managed by PCP and [employer] PROFESSIONAL. The patient will continue exercise regimen with [...] Dictation was accomplished with the use of Pad[employer] voice recognition software, prone to medical misidentifications [...] Currently on estradiol. Managed by PCP and [employer] PROFESSIONAL. The patient will continue exercise regimen with [...] Dictation was accomplished with the use of [employer] voice recognition software, prone to medical misidentifications [...] Currently on estradiol. Managed by PCP and [employer] PROFESSIONAL. The patient will continue exercise regimen with [...] Dictation was accomplished with the use of Pad[employer] voice recognition software, prone to medical misidentifications [...] Currently on estradiol. Managed by PCP and [employer] PROFESSIONAL. The patient will continue exercise regimen with [...] Dictation was accomplished with the use of Pad[employer] voice recognition software, prone to medical misidentifications [...] Currently on estradiol. Managed by PCP and [employer] PROFESSIONAL. The patient will continue exercise regimen with [...] Dictation was accomplished with the use of [employer] voice recognition software, prone to medical misidentifications [...] Currently on estradiol. Managed by PCP and [employer] PROFESSION[employer]. The patient will continue exercise regimen with [...] Dictation was accomplished with the use of Pad[employer] voice recognition software, prone to medical misidentifications [...] Currently on estradiol. Managed by PCP and [employer] PROFESSIONAL. The patient will continue exercise regimen with [...] Dictation was accomplished with the use of Pad[employer] voice recognition software, prone to medical misidentifications and grammatical errors. This is unintentional and the practitioner does try to identify and correct these, but some could still be present. Please do not hesitate to contact practitioner for clarification. All questions answered to patients satisfaction. Patient verbalized understanding of diagnosis and treatments explained. To call sooner prior to next visit it any questions/concerns arise. 07/30/2024 BMI 25.0-25.9,adult (ICD-10 - Z68.25) #Obesity. 07/30/24: 137.9, BMI 25.2. She has done fantastic on Zepbound and currently on 7.5 mg. She is in maintenance at this point and is working to build more muscle mass. Will decrease dose to 5 mg and continue to work on protein and resistance training. She does have some 7.5 mg doses at home that she will use up first. Follow up 1 month, sooner as needed. #Endometriosis- S/p hysterectomy, left ovary remains. Currently on estradiol. Managed by PCP and [employer] PROF[employer]. The patient will continue exercise regimen with [...] Dictation was accomplished with the use of PadMatcher voice recognition software, prone to medical misidentifications and grammatical errors. This is unintentional and the practitioner does try to identify and correct these, but some could still be present. Please do not hesitate to contact practitioner for clarification. All questions answered to patients satisfaction. Patient verbalized understanding of diagnosis and treatments explained. To call sooner prior to next visit it any questions/concerns arise. 07/30/2024 Overweight (BMI 25.0-29.9) (ICD-10 - E66.3) #Obesity. 07/30/24: 137.9, BMI 25.2. She has done fantastic on Zepbound and currently on 7.5 mg. She is in maintenance at this point and is working to build more muscle mass. Will decrease dose to 5 mg and continue to work on protein and resistance training. She does have some 7.5 mg doses at home that she will use up first. Follow up 1 month, sooner as needed. #Endometriosis- S/p hysterectomy, left ovary remains. Currently on estradiol. Managed by PCP and [employer]. The patient will continue exercise regimen with [...] Dictation was accomplished with the use of PadMatcher voice recognition software, prone to medical misidentifications and grammatical errors. This is unintentional and the practitioner does try to identify and correct these, but some could still be present. Please do not hesitate to contact practitioner for clarification. All questions answered to patients satisfaction. Patient verbalized understanding of diagnosis and treatments explained. To call sooner prior to next visit it any questions/concerns arise. 09/13/2024 Endometriosis (ICD-10 - N80.9) #Obesity. 09/13/24: 134.3, BMI 24.6 She has done fantastic on Zepbound and currently on 5 mg and tapering down. She is in maintenance at this point and is working to build more muscle mass. Continue consistent protein intake and resistance training. Follow up 1 month, sooner as needed. #Endometriosis- S/p hysterectomy, left ovary remains. Currently on estradiol. Managed by PCP and [employer]. The patient will continue exercise regimen with [...] Dictation was accomplished with the use of PadMatcher voice recognition software, prone to medical misidentifications and grammatical errors. This is unintentional and the practitioner does try to identify and correct these, but some could still be present. Please do not hesitate to contact practitioner for clarification. All questions answered to patients satisfaction. Patient verbalized understanding of diagnosis and treatments explained. To call sooner prior to next visit it any questions/concerns arise. 09/13/2024 Overweight (BMI 25.0-29.9) (ICD-10 - E66.3) #Obesity. 09/13/24: 134.3, BMI 24.6 She has done fantastic on Zepbound and currently on 5 mg and tapering down. She is in maintenance at this point and is working to build more muscle mass. Continue consistent protein intake and resistance training. Follow up 1 month, sooner as needed. #Endometriosis- S/p hysterectomy, left ovary remains. Currently on estradiol. Managed by PCP and [employer] PROF[employer]. The patient will continue exercise regimen with [...] Dictation was accomplished with the use of Pad[employer] voice recognition software, prone to medical misidentifications and grammatical errors. This is unintentional and the practitioner does try to identify and correct these, but some could still be present. Please do not hesitate to contact practitioner for clarification. All questions answered to patients satisfaction. Patient verbalized understanding of diagnosis and treatments explained. To call sooner prior to next visit it any questions/concerns arise. 10/18/2024 Endometriosis (ICD-10 - N80.9) #Obesity. 10/18/24: 139.9, BMI 25.6 She has done fantastic on Zepbound and currently on 5 mg. She is in maintenance at this point and is working to build more muscle mass. Continue consistent protein intake and resistance training. MICC injection done today as well. Follow up 1 month, sooner as needed. #Endometriosis- S/p hysterectomy, left ovary remains. Currently on estradiol. Managed by PCP and [employer] PROFESSIONAL. The patient will continue exercise regimen with [...] Dictation was accomplished with the use of Pad[employer] voice recognition software, prone to medical misidentifications and grammatical errors. This is unintentional and the practitioner does try to identify and correct these, but some could still be present. Please do not hesitate to contact practitioner for clarification. All questions answered to patients satisfaction. Patient verbalized understanding of diagnosis and treatments explained. To call sooner prior to next visit it any questions/concerns arise. 10/18/2024 Overweight (BMI 25.0-29.9) (ICD-10 - E66.3) #Obesity. 10/18/24: 139.9, BMI 25.6 She has done fantastic on Zepbound and currently on 5 mg. She is in maintenance at this point and is working to build more muscle mass. Continue consistent protein intake and resistance training. MICC injection done today as well. Follow up 1 month, sooner as needed. #Endometriosis- S/p hysterectomy, left ovary remains. Currently on estradiol. Managed by PCP and [employer] PROF[employer]. The patient will continue exercise regimen with [...] Dictation was accomplished with the use of Pad[employer] voice recognition software, prone to medical misidentifications and grammatical errors. This is unintentional and the practitioner does try to identify and correct these, but some could still be present. Please do not hesitate to contact practitioner for clarification. All questions answered to patients satisfaction. Patient verbalized understanding of diagnosis and treatments explained. To call sooner prior to next visit it any questions/concerns arise. 12/11/2024 Endometriosis (ICD-10 - N80.9) #Obesity. 12/11/24: 132.4, BMI 24.2 Now in normal BMI range. She has done fantastic on Zepbound and currently on 5 mg. She is in maintenance at this point and is working to build more muscle mass. Continue consistent protein intake and resistance training. MICC injection done today as well. Follow up 1 month, sooner as needed. #Endometriosis- S/p hysterectomy, left ovary remains. Currently on estradiol. Managed by PCP and [employer] PROF[employer]. The patient will continue exercise regimen with [...] Dictation was accomplished with the use of Pad[employer] voice recognition software, prone to medical misidentifications and grammatical errors. This is unintentional and the practitioner does try to identify and correct these, but some could still be present. Please do not hesitate to contact practitioner for clarification. All questions answered to patients satisfaction. Patient verbalized understanding of diagnosis and treatments explained. To call sooner prior to next visit it any questions/concerns arise. 12/11/2024 Weight loss counseling, encounter for (ICD-10 - Z71.3) #Obesity. 12/11/24: 132.4, BMI 24.2 Now in normal BMI range. She has done fantastic on Zepbound and currently on 5 mg. She is in maintenance at this point and is working to build more muscle mass. Continue consistent protein intake and resistance training. MICC injection done today as well. Follow up 1 month, sooner as needed. #Endometriosis- S/p hysterectomy, left ovary remains. Currently on estradiol. Managed by PCP and [employer] PROFESSION[employer]. The patient will continue exercise regimen with [...] Dictation was accomplished with the use of Pad[employer] voice recognition software, prone to medical misidentifications and grammatical errors. This is unintentional and the practitioner does try to identify and correct these, but some could still be present. Please do not hesitate to contact practitioner for clarification. All questions answered to patients satisfaction. Patient verbalized understanding of diagnosis and treatments explained. To call sooner prior to next visit it any questions/concerns arise. 10/18/2024 Weight loss counseling, encounter for (ICD-10 - Z71.3) #Obesity. 10/18/24: 139.9, BMI 25.6 She has done fantastic on Zepbound and currently on 5 mg. She is in maintenance at this point and is working to build more muscle mass. Continue consistent protein intake and resistance training. MICC injection done today as well. Follow up 1 month, sooner as needed. #Endometriosis- S/p hysterectomy, left ovary remains. Currently on estradiol. Managed by PCP and [employer]. The patient will continue exercise regimen with [...] Dictation was accomplished with the use of Pad[employer] voice recognition software, prone to medical misidentifications and grammatical errors. This is unintentional and the practitioner does try to identify and correct these, but some could still be present. Please do not hesitate to contact practitioner for clarification. All questions answered to patients satisfaction. Patient verbalized understanding of diagnosis and treatments explained. To call sooner prior to next visit it any questions/concerns arise. 12/11/2024 Encounter for examination of blood pressure without abnormal findings (ICD-10 - Z01.30) #Obesity. 12/11/24: 132.4, BMI 24.2 Now in normal BMI range. She has done fantastic on Zepbound and currently on 5 mg. She is in maintenance at this point and is working to build more muscle mass. Continue consistent protein intake and resistance training. MICC injection done today as well. Follow up 1 month, sooner as needed. #Endometriosis- S/p hysterectomy, left ovary remains. Currently on estradiol. Managed by PCP and [employer] PROF[employer]. The patient will continue exercise regimen with [...] Dictation was accomplished with the use of Pad[employer] voice recognition software, prone to medical misidentifications and grammatical errors. This is unintentional and the practitioner does try to identify and correct these, but some could still be present. Please do not hesitate to contact practitioner for clarification. All questions answered to patients satisfaction. Patient verbalized understanding of diagnosis and treatments explained. To call sooner prior to next visit it any questions/concerns arise. 09/13/2024 Weight loss counseling, encounter for (ICD-10 - Z71.3) #Obesity. 09/13/24: 134.3, BMI 24.6 She has done fantastic on Zepbound and currently on 5 mg and tapering down. She is in maintenance at this point and is working to build more muscle mass. Continue consistent protein intake and resistance training. Follow up 1 month, sooner as needed. #Endometriosis- S/p hysterectomy, left ovary remains. Currently on estradiol. Managed by PCP and [employer]. The patient will continue exercise regimen with [...] Dictation was accomplished with the use of Pad[employer] voice recognition software, prone to medical misidentifications and grammatical errors. This is unintentional and the practitioner does try to identify and correct these, but some could still be present. Please do not hesitate to contact practitioner for clarification. All questions answered to patients satisfaction. Patient verbalized understanding of diagnosis and treatments explained. To call sooner prior to next visit it any questions/concerns arise. 07/30/2024 Endometriosis (ICD-10 - N80.9) #Obesity. 07/30/24: 137.9, BMI 25.2. She has done fantastic on Zepbound and currently on 7.5 mg. She is in maintenance at this point and is working to build more muscle mass. Will decrease dose to 5 mg and continue to work on protein and resistance training. She does have some 7.5 mg doses at home that she will use up first. Follow up 1 month, sooner as needed. #Endometriosis- S/p hysterectomy, left ovary remains. Currently on estradiol. Managed by PCP and [employer]. The patient will continue exercise regimen with [...] Dictation was accomplished with the use of [employer] voice recognition software, prone to medical misidentifications [...] Currently on estradiol. Managed by PCP and [employer] PROF[employer]. The patient will continue exercise regimen with [...] Dictation was accomplished with the use of [employer] voice recognition software, prone to medical misidentifications [...] is working to build more muscle mass. EKYONA injection given today. Continue high-protein diet and regular resistance training. She has not yet done her labs but will do prior to her next visit. Follow-up in 1 month sooner with any concerns. #Endometriosis- S/p hysterectomy, left ovary remains. Currently on estradiol. Managed by PCP and [employer]. The patient will continue exercise regimen with [...] Dictation was accomplished with the use of PadMatcher voice recognition software, prone to medical misidentifications [...] Currently on estradiol. Managed by PCP and [employer]. The patient will continue exercise regimen with [...] Dictation was accomplished with the use of [employer] voice recognition software, prone to medical misidentifications [...] Currently on estradiol. Managed by PCP and [employer]. The patient will continue exercise regimen with [...] Dictation was accomplished with the use of [employer] voice recognition software, prone to medical misidentifications [...] Currently on estradiol. Managed by PCP and [employer]. The patient will continue exercise regimen with [...] Dictation was accomplished with the use of [employer] voice recognition software, prone to medical misidentifications [...] Currently on estradiol. Managed by PCP and [employer]. The patient will continue exercise regimen with [...] Dictation was accomplished with the use of [employer] voice recognition software, prone to medical misidentifications [...] Currently on estradiol. Managed by PCP and [employer]. The patient will continue exercise regimen with [...] Dictation was accomplished with the use of [employer] voice recognition software, prone to medical misidentifications [...] Currently on estradiol. Managed by PCP and [employer]. The patient will continue exercise regimen with [...] Dictation was accomplished with the use of [employer] voice recognition software, prone to medical misidentifications [...] Currently on estradiol. Managed by PCP and [employer]. The patient will continue exercise regimen with [...] Dictation was accomplished with the use of [employer] voice recognition software, prone to medical misidentifications [...] Currently on estradiol. Managed by PCP and [employer]. The patient will continue exercise regimen with [...] Dictation was accomplished with the use of [employer] voice recognition software, prone to medical misidentifications and grammatical errors. This is unintentional and the practitioner does try to identify and correct these, but some could still be present. Please do not hesitate to contact practitioner for clarification. All questions answered to patients satisfaction. Patient verbalized understanding of diagnosis and treatments explained. To call sooner prior to next visit it any questions/concerns arise. 09/13/2024 Vitamin D deficiency (ICD-10 - E55.9) #Obesity. 09/13/24: 134.3, BMI 24.6 She has done fantastic on Zepbound and currently on 5 mg and tapering down. She is in maintenance at this point and is working to build more muscle mass. Continue consistent protein intake and resistance training. Follow up 1 month, sooner as needed. #Endometriosis- S/p hysterectomy, left ovary remains. Currently on estradiol. Managed by PCP and [employer]. The patient will continue exercise regimen with [...] Dictation was accomplished with the use of Pad[employer] voice recognition software, prone to medical misidentifications and grammatical errors. This is unintentional and the practitioner does try to identify and correct these, but some could still be present. Please do not hesitate to contact practitioner for clarification. All questions answered to patients satisfaction. Patient verbalized understanding of diagnosis and treatments explained. To call sooner prior to next visit it any questions/concerns arise. 07/30/2024 Weight loss counseling, encounter for (ICD-10 - Z71.3) #Obesity. 07/30/24: 137.9, BMI 25.2. She has done fantastic on Zepbound and currently on 7.5 mg. She is in maintenance at this point and is working to build more muscle mass. Will decrease dose to 5 mg and continue to work on protein and resistance training. She does have some 7.5 mg doses at home that she will use up first. Follow up 1 month, sooner as needed. #Endometriosis- S/p hysterectomy, left ovary remains. Currently on estradiol. Managed by PCP and [employer]. The patient will continue exercise regimen with [...] Dictation was accomplished with the use of Pad[employer] voice recognition software, prone to medical misidentifications and grammatical errors. This is unintentional and the practitioner does try to identify and correct these, but some could still be present. Please do not hesitate to contact practitioner for clarification. All questions answered to patients satisfaction. Patient verbalized understanding of diagnosis and treatments explained. To call sooner prior to next visit it any questions/concerns arise. 10/18/2024 Encounter for examination of blood pressure without abnormal findings (ICD-10 - Z01.30) #Obesity. 10/18/24: 139.9, BMI 25.6 She has done fantastic on Zepbound and currently on 5 mg. She is in maintenance at this point and is working to build more muscle mass. Continue consistent protein intake and resistance training. MICC injection done today as well. Follow up 1 month, sooner as needed. #Endometriosis- S/p hysterectomy, left ovary remains. Currently on estradiol. Managed by PCP and [employer]. The patient will continue exercise regimen with [...] Dictation was accomplished with the use of Pad[employer] voice recognition software, prone to medical misidentifications and grammatical errors. This is unintentional and the practitioner does try to identify and correct these, but some could still be present. Please do not hesitate to contact practitioner for clarification. All questions answered to patients satisfaction. Patient verbalized understanding of diagnosis and treatments explained. To call sooner prior to next visit it any questions/concerns arise. 09/13/2024 Anemia due to vitamin B12 deficiency, unspecified B12 deficiency type (ICD-10 - D51.9) #Obesity. 09/13/24: 134.3, BMI 24.6 She has done fantastic on Zepbound and currently on 5 mg and tapering down. She is in maintenance at this point and is working to build more muscle mass. Continue consistent protein intake and resistance training. Follow up 1 month, sooner as needed. #Endometriosis- S/p hysterectomy, left ovary remains. Currently on estradiol. Managed by PCP and [employer]. The patient will continue exercise regimen with [...] Dictation was accomplished with the use of [employer] voice recognition software, prone to medical misidentifications and grammatical errors. This is unintentional and the practitioner does try to identify and correct these, but some could still be present. Please do not hesitate to contact practitioner for clarification. All questions answered to patients satisfaction. Patient verbalized understanding of diagnosis and treatments explained. To call sooner prior to next visit it any questions/concerns arise. 07/30/2024 Vitamin D deficiency (ICD-10 - E55.9) #Obesity. 07/30/24: 137.9, BMI 25.2. She has done fantastic on Zepbound and currently on 7.5 mg. She is in maintenance at this point and is working to build more muscle mass. Will decrease dose to 5 mg and continue to work on protein and resistance training. She does have some 7.5 mg doses at home that she will use up first. Follow up 1 month, sooner as needed. #Endometriosis- S/p hysterectomy, left ovary remains. Currently on estradiol. Managed by PCP and [employer]. The patient will continue exercise regimen with [...] Dictation was accomplished with the use of [employer] voice recognition software, prone to medical misidentifications and grammatical errors. This is unintentional and the practitioner does try to identify and correct these, but some could still be present. Please do not hesitate to contact practitioner for clarification. All questions answered to patients satisfaction. Patient verbalized understanding of diagnosis and treatments explained. To call sooner prior to next visit it any questions/concerns arise. 07/30/2024 Anemia due to vitamin B12 deficiency, unspecified B12 deficiency type (ICD-10 - D51.9) #Obesity. 07/30/24: 137.9, BMI 25.2. She has done fantastic on Zepbound and currently on 7.5 mg. She is in maintenance at this point and is working to build more muscle mass. Will decrease dose to 5 mg and continue to work on protein and resistance training. She does have some 7.5 mg doses at home that she will use up first. Follow up 1 month, sooner as needed. #Endometriosis- S/p hysterectomy, left ovary remains. Currently on estradiol. Managed by PCP and [employer]. The patient will continue exercise regimen with [...] Dictation was accomplished with the use of [employer] voice recognition software, prone to medical misidentifications [...] Currently on estradiol. Managed by PCP and [employer]. The patient will continue exercise regimen with [...] Dictation was accomplished with the use of [employer] voice recognition software, prone to medical misidentifications and grammatical errors. This is unintentional and the practitioner does try to identify and correct these, but some could still be present. Please do not hesitate to contact practitioner for clarification. All questions answered to patients satisfaction. Patient verbalized understanding of diagnosis and treatments explained. To call sooner prior to next visit it any questions/concerns arise. 09/13/2024 Encounter for examination of blood pressure without abnormal findings (ICD-10 - Z01.30) #Obesity. 09/13/24: 134.3, BMI 24.6 She has done fantastic on Zepbound and currently on 5 mg and tapering down. She is in maintenance at this point and is working to build more muscle mass. Continue consistent protein intake and resistance training. Follow up 1 month, sooner as needed. #Endometriosis- S/p hysterectomy, left ovary remains. Currently on estradiol. Managed by PCP and [employer]. The patient will continue exercise regimen with [...] Dictation was accomplished with the use of [employer] voice recognition software, prone to medical misidentifications [...] Currently on estradiol. Managed by PCP and [employer]. The patient will continue exercise regimen with [...] Dictation was accomplished with the use of [employer] voice recognition software, prone to medical misidentifications and grammatical errors. This is unintentional and the practitioner does try to identify and correct these, but some could still be present. Please do not hesitate to contact practitioner for clarification. All questions answered to patients satisfaction. Patient verbalized understanding of diagnosis and treatments explained. To call sooner prior to next visit it any questions/concerns arise. 07/30/2024 Encounter for examination of blood pressure without abnormal findings (ICD-10 - Z01.30) #Obesity. 07/30/24: 137.9, BMI 25.2. She has done fantastic on Zepbound and currently on 7.5 mg. She is in maintenance at this point and is working to build more muscle mass. Will decrease dose to 5 mg and continue to work on protein and resistance training. She does have some 7.5 mg doses at home that she will use up first. Follow up 1 month, sooner as needed. #Endometriosis- S/p hysterectomy, left ovary remains. Currently on estradiol. Managed by PCP and [employer]. The patient will continue exercise regimen with [...] Dictation was accomplished with the use of [employer] voice recognition software, prone to medical misidentifications [...] Currently on estradiol. Managed by PCP and [employer]. The patient will continue exercise regimen with [...] Dictation was accomplished with the use of [employer] voice recognition software, prone to medical misidentifications and grammatical errors. This is unintentional and the practitioner does try to identify and correct these, but some could still be present. Please do not hesitate to contact practitioner for clarification. All questions answered to patients satisfaction. Patient verbalized understanding of diagnosis and treatments explained. To call sooner prior to next visit it any questions/concerns arise. Plan Of Treatment Pending Test Test Name Order Date VITAMIN B12 06/26/2024 LIPID PANEL, STANDARD 02/21/2024 COMPREHENSIVE METABOLIC PANEL 02/21/2024 VITAMIN D,25-OH,TOTAL,IA 06/26/2024 Next Appt Details Provider Name:Mary Sawyer, Gurinder 08:00:00 AM, [address] [facility], [address], [place], [address], Provider Name:Mary Sawyer, Gurinder 02:45:00 PM, [address] [facility] [address], [place], [address], Insurance Providers Payer Name Payer Address Payer Phone Subscriber Number Group Number Insured Name Patient Relationship to Insured Coverage Start Date Coverage End Date [facility] [address] [place] [address] [phone] [id number] [phone] Yoana Goncalves Self - patient is the insured Medications Administered Medication Instructions Date of Administration [...] mg MICC B12 INJECTION 06/26/2024 1 mg MICC B12 INJECTION 09/13/2024 1 mg MICC B12 INJECTION 10/18/2024 1.0 mL MICC B12 INJECTION 11/08/2024 1 mL MICC B12 INJECTION 12/11/2024 1 mL Medical (General) History Medical History History ICD Code asthma seasonal allergies Surgical History Surgery Date(Month/Year) hysterectomy 07/20/2021 section 02/15/2009 left breast reconstruction,- removal and fat grafts 05/15/2018
== END 2024-12-20 10:32 | disposition home or self-care (01) ==
LOC: HO.HMCFM 09:49
PROVIDERS: PCP Nurse Practitioner Family; Visit Provider Nurse Practitioner Family
DX: Z00.00 Encounter for general adult medical examination without abnormal findings (principal); F41.1 Generalized anxiety disorder; E60 Dietary zinc deficiency; E55.9 Vitamin D deficiency, unspecified; Z83.438 Family history of other disorder of lipoprotein metabolism and other lipidemia; Z91.89 Other specified personal risk factors, not elsewhere classified; Z80.3 Family history of malignant neoplasm of breast; R74.8 Abnormal levels of other serum enzymes; I83.93 Asymptomatic varicose veins of bilateral lower extremities; Z92.89 Personal history of other medical treatment; D64.9 Anemia, unspecified; Z23 Encounter for immunization

== ENCOUNTER → 2024-12-20 09:49 | Outpatient (BNVA) | payer BC, SELFPAY | PROVIDERS: PCP Nurse Practitioner Family; Visit Provider Nurse Practitioner Family | DX: Z00.00 Encounter for general adult medical examination without abnormal findings (principal); F41.9 Anxiety disorder, unspecified; E66.9 Obesity, unspecified; L70.9 Acne, unspecified; F41.1 Generalized anxiety disorder; E55.9 Vitamin D deficiency, unspecified; E60 Dietary zinc deficiency; R74.8 Abnormal levels of other serum enzymes; D64.9 Anemia, unspecified; I83.93 Asymptomatic varicose veins of bilateral lower extremities; S03.40XA Sprain of jaw, unspecified side, initial encounter; Z80.3 Family history of malignant neoplasm of breast; Z23 Encounter for immunization; Z83.438 Family history of other disorder of lipoprotein metabolism and other lipidemia | CPT/HCPCS: 90471; 90656; 96127 ==